=== PATIENT | male | born 1955 | race Caucasian/White ===

== ENCOUNTER 2016-05-13 19:17 | Emergency (ER) | payer OTHER, MEDICARE ==
--- NOTE | 2016-05-13 19:34 | ER Document Report ---
ED Medical Screen (RME) - General Stated Complaint: NECK PAIN Time seen by provider: 19:32 Mode of Arrival: Wheelchair Information source: Parent Notes: 61-year-old male presents to ED for neck pain bilaterally across both shoulders and down both arms. States has been there for a couple weeks. He went to see [facility] for surgery and they ordered the MRI which has been done but he has a follow-up visit on May 22 and states he cannot wait that long the pain is too bad. I have greeted and performed a rapid initial assessment of this patient. A comprehensive ED assessment and evaluation of the patient, analysis of test results and completion of medical decision making process will be conducted by an additional ED providers. TRAVEL OUTSIDE OF THE [place] IN LAST 30 DAYS: No - Related Data Allergies/Adverse Reactions: latex [Latex] Allergy (Verified 05/13/16 19:30) adhesive tape [Adhesive Tape] Adverse Reaction (Verified 05/13/16 19:30) Past Medical History - Past Medical History Cardiac Medical History: Reports: Hx Congestive Heart Failure, Hx Coronary Artery Disease, Hx Heart Attack - x14, Hx Hypercholesterolemia, Hx Hypertension Pulmonary Medical History: Reports: Hx Pneumonia Endocrine Medical History: Reports: Hx Diabetes Mellitus Type 2 Past Surgical History: Reports: Hx Cardiac Catheterization, Hx Cardiac Surgery - CABG, Hx Coronary Artery Bypass Graft - 3 vessel CABG, Hx Coronary Stent - 5 angioplasties, last 2 stents placed on Immunizations Hx Diphtheria, Pertussis, Tetanus Vaccination: Yes Physical Exam - Vital signs Vitals: Temp Pulse Resp BP Pulse Ox 97.7 F 75 16 151/81 H 99 05/13/16 19:24 05/13/16 19:24 05/13/16 19:24 05/13/16 19:24 05/13/16 19:24 Course - Vital Signs Vital signs: Temp Pulse Resp BP Pulse Ox 97.7 F 75 16 151/81 H 99 05/13/16 19:24 05/13/16 19:24 05/13/16 19:24 05/13/16 19:24 05/13/16 19:24
[2016-05-13] MEDS ORDERED: HYDROMORPHONE HCL INJ/PF 2 MG/ML AMPULE IM ONE (21:17)
--- NOTE | 2016-05-13 21:46 | ER Document Report ---
ED Neck/Back Problem - General Chief Complaint: Neck Pain >24hrs old Stated Complaint: NECK PAIN Time seen by provider: 21:46 Mode of Arrival: Wheelchair TRAVEL OUTSIDE OF THE [place] IN LAST 30 DAYS: No - HPI Patient complains to provider of: Pain, Neck Onset: Other - Several months Onset: Gradual Timing: Still present Quality of pain: Achy Severity: Moderate Pain Level: 4 Recent injury: No Exacerbated by: Movement of neck Relieved by: Nothing Similar symptoms previously: Yes Recently seen / treated by doctor: Yes Notes: Patient is a 61-year-old male presenting to the emergency room complaining of neck pain that's been going on for the past few months, he has been seen by his primary care provider had an MRI performed which she has a follow up later this week to find out the results of, reports a slight tingling sensation in his left hand with painful range of motion of the neck and left shoulder, he denies any headache, no nausea, vomiting diarrhea, no injury or trauma, symptoms have been getting persistently worse - Related Data Allergies/Adverse Reactions: latex [Latex] Allergy (Verified 05/13/16 19:30) adhesive tape [Adhesive Tape] Adverse Reaction (Verified 05/13/16 19:30) Home Medications: Current Home Medications Alpha Lipoic Acid [Alpha Lipoic Acid 300 mg Capsule] 600 mg PO DAILY 05/13/16 [ History] Aspirin [Aspirin EC] 81 mg PO DAILY 05/13/16 [History] Cyanocobalamin (Vitamin B-12) [Vitamin B-12 1000 Mcg Tablet] 1,000 mcg PO DAILY 05/13/16 [History] Diclofenac Sodium [Voltaren] 1 applic TOP Q6HP PRN 05/13/16 [History] Gabapentin [Gabapentin] 1,200 mg PO QHS 05/13/16 [History] Gabapentin [Gabapentin] 800 mg PO BID 05/13/16 [History] Insulin Glulisine [Apidra Solostar] 8 unit SUBCUT AC 05/13/16 [History] Lidocaine [Lidocaine] 1 applic TOP Q6HP PRN 05/13/16 [History] Pregabalin [Lyrica] 150 mg PO BID 05/13/16 [History] Tadalafil [Cialis] 10 mg PO PRN PRN 05/13/16 [History] Past Medical History - General Information source: Parent - Social History Smoking Status: Never Smoker Chew tobacco use (# tins/day): Yes Frequency of alcohol use: None Drug Abuse: None Family History: Reviewed & Not Pertinent Patient has suicidal ideation: No Patient has homicidal ideation: No - Past Medical History Cardiac Medical History: Reports: Hx Congestive Heart Failure, Hx Coronary Artery Disease, Hx Heart Attack - x14, Hx Hypercholesterolemia, Hx Hypertension Pulmonary Medical History: Reports: Hx Pneumonia Endocrine Medical History: Reports: Hx Diabetes Mellitus Type 2 Renal/ Medical History: Denies: Hx Peritoneal Dialysis Past Surgical History: Reports: Hx Cardiac Catheterization, Hx Cardiac Surgery - CABG, Hx Coronary Artery Bypass Graft - 3 vessel CABG, Hx Coronary Stent - 5 angioplasties, last 2 stents placed on Immunizations Hx Diphtheria, Pertussis, Tetanus Vaccination: Yes Review of Systems - Review of Systems Constitutional: No symptoms reported EENT: No symptoms reported Cardiovascular: No symptoms reported Respiratory: No symptoms reported Gastrointestinal: No symptoms reported Genitourinary: No symptoms reported Male Genitourinary: No symptoms reported Musculoskeletal: See HPI Skin: No symptoms reported Hematologic/Lymphatic: No symptoms reported Neurological/Psychological: Tingling -: Yes All other systems reviewed and negative Physical Exam - Vital signs Vitals: Temp Pulse Resp BP Pulse Ox 97.7 F 75 16 151/81 H 99 05/13/16 19:24 05/13/16 19:24 05/13/16 19:24 05/13/16 19:24 05/13/16 19:24 Interpretation: Normal - General General appearance: Appears well, Alert - HEENT Head: Normocephalic, Atraumatic Eyes: Normal Extraocular movements intact: Yes Eyelashes: Normal Pupils: PERRL Neck: Other - Tenderness to palpate in paraspinal musculature, left greater than right, tenderness to palpate bilateral trapezius muscles as well - Respiratory Respiratory status: No respiratory distress Chest status: Nontender Breath sounds: Normal Chest palpation: Normal - Cardiovascular Rhythm: Regular Heart sounds: Normal auscultation Murmur: No - Abdominal Inspection: Normal Distension: No distension Bowel sounds: Normal Tenderness: Nontender Organomegaly: No organomegaly - Back Back: Normal, Nontender - Extremities General upper extremity: Normal inspection, Nontender, Normal color, Normal ROM , Normal temperature General lower extremity: Normal inspection, Nontender, Normal color, Normal ROM , Normal temperature, Normal weight bearing. No: James's sign - Neurological Neuro grossly intact: Yes Cognition: Normal Orientation: AAOx4 [place] Coma Scale Eye Opening: Spontaneous Los Coma Scale Verbal: Oriented [place] Coma Scale Motor: Obeys Commands Los Coma Scale Total: 15 Speech: Normal Motor strength normal: LUE, RUE, LLE, RLE Sensory: Normal - Psychological Associated symptoms: Normal affect, Normal mood - Skin Skin Temperature: Warm Skin Moisture: Dry Skin Color: Normal Course - Re-evaluation Re-evalutation: 05/13/16 22:05 Patient reports feeling significant pain relief after receiving IM pain medication injection, he was advised to follow-up with his primary care provider and a neurosurgeon within the next week for further evaluation and treatment, he will be provided with a prescription for a small amount of narcotic pain relievers, he was advised of the addictive nature of these pills and to use them sparingly or only when he is having a significant amount of breakthrough pain, patient and at bedside acknowledge understanding and agreement with this plan - Vital Signs Vital signs: Temp Pulse Resp BP Pulse Ox 97.7 F 68 16 145/77 H 97 05/13/16 19:24 05/13/16 22:14 05/13/16 22:14 05/13/16 22:14 05/13/16 22:14 Discharge - Discharge Clinical Impression: Neck pain Condition: Stable Disposition: HOME, SELF-CARE Instructions: Neck Injury (Cervical Strain) ([facility]), Herniated Disc ([facility]), Oral Narcotic Medication ([facility]) Additional Instructions: Follow up with your primary care provider and a neurosurgeon in one to 2 days. Return to the emergency room immediately if symptoms worsen or any additional concerns. Prescriptions: Hydrocodone/Acetaminophen [Hydrocodon-Acetaminophen 5-325] 1 each PO Q6 #20 tablet
[2016-05-13] MEDS ORDERED: HYDROCODONE/ACETAMINOPHEN 5-325 MG 6 TAB/DSPK PO PRN (22:06)
[2016-05-13 23:25] VITALS: BP 145/77
== END 2016-05-13 22:14 | disposition home or self-care (01) ==
LOC: ER 19:17
DX: M54.2 Cervicalgia (principal); Z79.899 Other long term (current) drug therapy; Z79.4 Long term (current) use of insulin
CPT/HCPCS: 99283; 96372; J1170

== ENCOUNTER 2016-06-07 14:16 | Emergency (ER) | payer OTHER, MEDICARE ==
--- NOTE | 2016-06-07 14:24 | ER Document Report ---
ED Medical Screen (RME) - General Stated Complaint: NECK PAIN,BLOODY STOOL Mode of Arrival: Ambulatory Information source: Patient Notes: Patient complains of chronic pain due to his condition and states that he is supposed to have shots to help with pain management. Patient has been taking Percocet for his neck pain and reports that it is causing him to itch. Patient reports having blood with bowel movement last night. Patient reports having 3 similar bowel movements today. Patient takes Plavix, but has not taken any for 3 weeks. hx: [place], angioplasty with stents. Hypertension, diabetes I have greeted and performed a rapid initial assessment of this patient. A comprehensive ED assessment and evaluation of the patient, analysis of test results and completion of the medical decision making process will be conducted by additional ED providers. TRAVEL OUTSIDE OF THE [place] IN LAST 30 DAYS: No - Related Data Allergies/Adverse Reactions: acetaminophen [From Percocet] Allergy (Verified 06/07/16 14:21) latex [Latex] Allergy (Verified 06/07/16 14:21) oxycodone [From Percocet] Allergy (Verified 06/07/16 14:21) adhesive tape [Adhesive Tape] Adverse Reaction (Verified 06/07/16 14:21) Past Medical History - Past Medical History Cardiac Medical History: Reports: Hx Congestive Heart Failure, Hx Coronary Artery Disease, Hx Heart Attack - x14, Hx Hypercholesterolemia, Hx Hypertension Pulmonary Medical History: Reports: Hx Pneumonia Endocrine Medical History: Reports: Hx Diabetes Mellitus Type 2 Renal/ Medical History: Denies: Hx Peritoneal Dialysis Past Surgical History: Reports: Hx Cardiac Catheterization, Hx Cardiac Surgery - CABG, Hx Coronary Artery Bypass Graft - 3 vessel CABG, Hx Coronary Stent - 5 angioplasties, last 2 stents placed on Immunizations Hx Diphtheria, Pertussis, Tetanus Vaccination: Yes Physical Exam - General General appearance: Appears well, Alert In distress: None Notes: Tenderness to posterior neck
[2016-06-07 15:05] LABS: ABSOLUTE EOSINOPHILS # (AUTO) 0.1 10^3/uL (0.0-0.6); ABSOLUTE LYMPHOCYTES (AUTO) 1.4 10^3/uL (0.5-4.7); ABSOLUTE MONOCYTES (AUTO) 0.5 10^3/uL (0.1-1.4); ABSOLUTE NEUT (AUTO) 5.1 10^3/uL (1.7-8.2); BASOPHILS % (AUTO) 0.4 % (0-2); EOSINOPHILS % (AUTO) 1.8 % (0-6); HEMATOCRIT 46.6 % (37.9-51.0); HEMOGLOBIN 16.1 g/dL (13.5-17.0); HGB HCT DIFFERENCE 1.7; LYMPHOCYTES % (AUTO) 19.5 % (13-45); MEAN CORPUSCULAR HEMOGLOBIN 29.6 pg (27.0-33.4); MEAN CORPUSCULAR HGB CONC 34.5 g/dL (32.0-36.0); MEAN CORPUSCULAR VOLUME 86 fl (80-97); MONOCYTES % (AUTO) 7.1 % (3-13); RED BLOOD COUNT 5.43 10^6/uL (4.35-5.55); RED CELL DISTRIBUTION WIDTH 13.7 % (11.5-14.0); SEGMENTED NEUTROPHILS % (AUTO) 71.2 % (42-78); WHITE BLOOD COUNT 7.1 10^3/uL (4.0-10.5)
[2016-06-07 15:09] LABS: PROTHROMBIN TIME 12.8 SEC (11.4-15.4)
[2016-06-07 15:10] LABS: APPEARANCE,URINE CLEAR; BILIRUBIN,URINE NEGATIVE (NEGATIVE); GLUCOSE, URINE NEGATIVE (NEGATIVE); KETONES,URINE NEGATIVE (NEGATIVE); LEUKOCYTE ESTERASE,URINE NEGATIVE (NEGATIVE); NITRITE,URINE NEGATIVE (NEGATIVE); PROTEIN,URINE NEGATIVE (NEGATIVE); UROBILINOGEN,URINE NEGATIVE mg/dL (<2.0)
[2016-06-07 15:38] LABS: ALANINE AMINOTRANSFERASE 47 U/L (21-72); ALKALINE PHOSPHATASE 109 U/L (38-126); ANION GAP 12 (5-19); ASPARTATE AMINO TRANSFERASE 29 U/L (17-59); BILIRUBIN,DIRECT 0.3 mg/dL (0.0-0.4); BILIRUBIN,TOTAL 0.9 mg/dL (0.2-1.3); BLOOD UREA NITROGEN 10 mg/dL (7-20); CALCIUM 9.5 mg/dL (8.4-10.2); CARBON DIOXIDE 28 mmol/L (22-30); CHLORIDE 98 mmol/L (98-107); CREATININE RESULT 0.96 mg/dL (0.52-1.25); GLUCOSE 155 mg/dL (75-110); POTASSIUM 4.4 mmol/L (3.6-5.0); SODIUM 138.4 mmol/L (137-145); TOTAL PROTEIN 6.7 g/dL (6.3-8.2)
[2016-06-07 16:17] LABS: PARTIAL THROMBOPLASTIN TIME 29.8 SEC (23.5-35.8)
[2016-06-07] MEDS ORDERED: PREDNISONE 20 MG TABLET PO ONE (18:50)
[2016-06-07] MEDS ORDERED: HYDROMORPHONE HCL INJ/PF 2 MG/ML AMPULE IM ONE (18:50)
--- NOTE | 2016-06-07 18:51 | ER Document Report ---
ED Neck/Back Problem - General Time seen by provider: 18:45 Mode of Arrival: Ambulatory Information source: Patient TRAVEL OUTSIDE OF THE [place] IN LAST 30 DAYS: No - HPI Patient complains to provider of: Pain, Neck Associated symptoms: Other - See above <ANDRÉS DAWN - Last Filed: 06/08/16 00:41> <ALVARO ZURITA - Last Filed: 06/08/16 00:53> - General Chief Complaint: Neck and Upper Back Pain Stated Complaint: NECK PAIN Notes: Patient is a 61 year old male who presents to the emergency department complaining of neck pain. Patient states the pain has been chronic off and on and came back on about a month ago and won't go away. Patient was seen at this facility last week for the same symptoms and reports that his pain medication, Percocet, is not working and only makes him itch. Patient also complains of shoulder, back, and arm pain. Patients reports that treatment with steroids and shots to his back seem to help with the pain. Patient also complains that he has not been sleeping well and is starting to feel anxious. Patient states that he has had blood streaked bowels and believes it is secondary to his narcotics causing him to become constipated and bursting a hemorrhoid. (ANDRÉS DAWN) - Related Data Allergies/Adverse Reactions: acetaminophen [From Percocet] Allergy (Verified 06/07/16 14:21) latex [Latex] Allergy (Verified 06/07/16 14:21) oxycodone [From Percocet] Allergy (Verified 06/07/16 14:21) adhesive tape [Adhesive Tape] Adverse Reaction (Verified 06/07/16 14:21) Past Medical History - General Information source: Patient - Social History Smoking Status: Never Smoker Chew tobacco use (# tins/day): Yes Frequency of alcohol use: None Drug Abuse: None Family History: Reviewed & Not Pertinent Patient has suicidal ideation: No Patient has homicidal ideation: No - Past Medical History Cardiac Medical History: Reports: Hx Congestive Heart Failure, Hx Coronary Artery Disease, Hx Heart Attack - x14, Hx Hypercholesterolemia, Hx Hypertension Pulmonary Medical History: Reports: Hx Pneumonia Endocrine Medical History: Reports: Hx Diabetes Mellitus Type 2 Past Surgical History: Reports: Hx Cardiac Catheterization, Hx Cardiac Surgery - CABG, Hx Coronary Artery Bypass Graft - 3 vessel CABG, Hx Coronary Stent - 5 angioplasties, last 2 stents placed on05/25/ Immunizations Hx Diphtheria, Pertussis, Tetanus Vaccination: Yes <ANDRÉS DAWN - Last Filed: 06/08/16 00:41> Review of Systems - Review of Systems Constitutional: No symptoms reported EENT: No symptoms reported Cardiovascular: No symptoms reported Respiratory: No symptoms reported Gastrointestinal: See HPI, Constipation, Blood streaked bowels Genitourinary: No symptoms reported Male Genitourinary: No symptoms reported Musculoskeletal: See HPI, Back pain, Neck pain, Other - shoulder and arm pain Skin: No symptoms reported Hematologic/Lymphatic: No symptoms reported Neurological/Psychological: No symptoms reported -: Yes All other systems reviewed and negative <ANDRÉS DAWN - Last Filed: 06/08/16 00:41> Physical Exam - Vital signs Interpretation: Normal - General General appearance: Alert - HEENT Head: Normocephalic, Atraumatic Neck: Posterior cervical chain - Paraspinal tenderness to palpation of entire cervical area, Other - Holds neck in flexed posision for comfort - Respiratory Respiratory status: No respiratory distress Chest status: Nontender Breath sounds: Normal Chest palpation: Normal - Cardiovascular Rhythm: Regular Heart sounds: Normal auscultation Murmur: No - Back Back: Tender - bilateral trapezius tenderness to palpation - Extremities General upper extremity: Normal inspection, Normal ROM, Normal strength General lower extremity: Normal inspection, Normal ROM, Normal strength, Normal weight bearing - Neurological Neuro grossly intact: Yes Cognition: Normal Orientation: AAOx4 [place] Coma Scale Eye Opening: Spontaneous Los Coma Scale Verbal: Oriented [place] Coma Scale Motor: Obeys Commands Counselor Coma Scale Total: 15 Speech: Normal Motor strength normal: LUE, RUE, LLE, RLE - Psychological Associated symptoms: Normal affect, Normal mood - Skin Skin Temperature: Warm Skin Moisture: Dry Skin Color: Normal <ANDRÉS DAWN - Last Filed: 06/08/16 00:41> Course - Laboratory Result Diagrams: 06/07/16 14:25 06/07/16 14:25 <ANDRÉS DAWN - Last Filed: 06/08/16 00:41> - Laboratory Result Diagrams: 06/07/16 14:25 06/07/16 14:25 <ALVARO ZURITA - Last Filed: 06/08/16 00:53> - Re-evaluation Re-evalutation: 06/07 Patient feels better after pain medication here in the emergency department. Patient has a follow-up with his pain management doctor on Saturday. Patient has been itching with oxycodone and will be switched to hydrocodone. He also has stated that in the past a steroid Dosepak has worked well for him. Patient would like to try that again today. He will be discharged home with a Medrol Dosepak. No new symptoms. This is the same back pain that he has been having for quite some time, he just has had an acute flare today. (ALVARO ZURITA) - Vital Signs Vital signs: Temp Pulse Resp BP Pulse Ox 98.5 F 67 18 134/78 H 96 06/07/16 20:37 06/07/16 20:37 06/07/16 20:37 06/07/16 20:37 06/07/16 20:37 - Laboratory Laboratory results interpreted by me: 06/07/16 06/07/16 14:25 17:22 Glucose 155 H POC Glucose 147 H Discharge <ANDRÉS DAWN - Last Filed: 06/08/16 00:41> <ALVARO ZURITA - Last Filed: 06/08/16 00:53> - Discharge Clinical Impression: Neck pain Condition: Stable Disposition: HOME, SELF-CARE Instructions: Neck Injury (Cervical Strain) ([facility]) Additional Instructions: Please see your pain doctor on as scheduled. Prescriptions: Diazepam [Valium 2 mg Tablet] 2 mg PO BIDP PRN #15 tablet PRN Reason: Hydrocodone/Acetaminophen [[place] 5-325 mg Tablet] 1 tab PO TID #20 tablet Methylprednisolone [Medrol Dosepack (4 mg/Tab) 21 Tab/Dosepak] 4 mg PO ASDIR PRN #21 tab.[id number] PRN Reason: Referrals: ELPIDIO VEGA PA-C [Primary Care Provider] - Follow up as needed Scribe Attestation: 06/08/16 00:53 I personally performed the services described in the documentation, reviewed and edited the documentation which was dictated to the scribe in my presence, and it accurately records my words and actions. (ALVARO ZURITA) Scribe Documentation - Scribe Written by Scribe:: wilson Woods, 06/07/16, [id number] acting as scribe for :: Juan Jose <ANDRÉS DAWN - Last Filed: 06/08/16 00:41>
[2016-06-07 20:47] VITALS: BP 134/78
== END 2016-06-07 20:37 | disposition home or self-care (01) ==
LOC: ER 14:16
DX: G89.29 Other chronic pain (principal); M54.2 Cervicalgia; Z79.891 Long term (current) use of opiate analgesic; M25.519 Pain in unspecified shoulder; M54.89 Other dorsalgia; M79.603 Pain in arm, unspecified; K59.00 Constipation, unspecified; K92.1 Melena; F41.9 Anxiety disorder, unspecified; I25.10 Atherosclerotic heart disease of native coronary artery without angina pectoris; I25.2 Old myocardial infarction; I10 Essential (primary) hypertension; E11.9 Type 2 diabetes mellitus without complications; Z95.1 Presence of aortocoronary bypass graft; Z98.61 Coronary angioplasty status; Z88.5 Allergy status to narcotic agent; Z88.6 Allergy status to analgesic agent; Z91.040 Latex allergy status
CPT/HCPCS: 99283; 96372; 36415; 82962; 85025; 85610; 85730; 80053; 81001; J1170; J7512

== ENCOUNTER 2016-07-01 00:27 | Emergency (ER) | payer OTHER, MEDICARE ==
[2016-07-01 00:36] VITALS: BP 168/91
--- NOTE | 2016-07-01 02:04 | ER Document Report ---
ED Allergic Reaction - General Chief Complaint: Allergic Reaction Stated Complaint: POSSIBLE REACTION TO MEDICATION Notes: The patient is a 61-year-old male, past medical history chronic neck pain, hypertension, anxiety, presents with a itchy nose after he took Claritin earlier today. He was having rhinorrhea prior to taking the medication. He is worried that he is having an allergic reaction. In addition, he is having his usual neck pain and he follows with his primary care physician and pain management for this. Seen several times in the emergency room for this neck pain. Denies trouble breathing, throat swelling, rash, tongue swelling, nausea , vomiting or fevers. TRAVEL OUTSIDE OF THE [place] IN LAST 30 DAYS: No - Related Data Allergies/Adverse Reactions: acetaminophen [From Percocet] Allergy (Verified 06/07/16 14:21) latex [Latex] Allergy (Verified 06/07/16 14:21) oxycodone [From Percocet] Allergy (Verified 06/07/16 14:21) adhesive tape [Adhesive Tape] Adverse Reaction (Verified 06/07/16 14:21) Past Medical History - General Information source: Patient - Social History Smoking Status: Unknown if Ever Smoked Family History: Reviewed & Not Pertinent Patient has suicidal ideation: No Patient has homicidal ideation: No - Past Medical History Cardiac Medical History: Reports: Hx Congestive Heart Failure, Hx Coronary Artery Disease, Hx Heart Attack - x14, Hx Hypercholesterolemia, Hx Hypertension Pulmonary Medical History: Reports: Hx Pneumonia Endocrine Medical History: Reports: Hx Diabetes Mellitus Type 2 Renal/ Medical History: Denies: Hx Peritoneal Dialysis Past Surgical History: Reports: Hx Cardiac Catheterization, Hx Cardiac Surgery - CABG, Hx Coronary Artery Bypass Graft - 3 vessel CABG, Hx Coronary Stent - 5 angioplasties, last 2 stents placed on05/25/ Immunizations Hx Diphtheria, Pertussis, Tetanus Vaccination: Yes Review of Systems - Review of Systems Notes: REVIEW OF SYSTEMS: CONSTITUTIONAL: -fevers, -chills EENT: +itchy nose, -eye pain, -difficulty swallowing, -nasal congestion CARDIOVASCULAR:-chest pain, -syncope. RESPIRATORY: -cough, -SOB GASTROINTESTINAL: -abdominal pain, -nausea, -vomiting, -diarrhea GENITOURINARY: -dysuria, -hematuria MUSCULOSKELETAL: -back pain, -neck pain SKIN: -rash or skin lesions. HEMATOLOGIC: -easy bruising or bleeding. LYMPHATIC: -swollen, enlarged glands. NEUROLOGICAL: -altered mental status or loss of consciousness, -headache, - neurologic symptoms PSYCHIATRIC: -anxiety, -depression. ALL OTHER SYSTEMS REVIEWED AND NEGATIVE. Physical Exam - Vital signs Vitals: Temp Pulse Resp BP Pulse Ox 98 F 80 18 168/91 H 97 07/01/16 00:32 07/01/16 00:32 07/01/16 00:32 07/01/16 00:32 07/01/16 00:32 - Notes Notes: PHYSICAL EXAMINATION: GENERAL: Well-appearing, well-nourished and in no acute distress. HEAD: Atraumatic, normocephalic. EYES: Pupils equal round and reactive to light, extraocular movements intact, sclera anicteric, conjunctiva are normal. ENT: nares patent, oropharynx clear without exudates. Moist mucous membranes. NECK: Normal range of motion, supple without lymphadenopathy LUNGS: Breath sounds clear to auscultation bilaterally and equal. No wheezes rales or rhonchi. HEART: Regular rate and rhythm without murmurs ABDOMEN: Soft, nontender, normoactive bowel sounds. No guarding, no rebound. No masses appreciated. EXTREMITIES: Normal range of motion, no pitting or edema. No cyanosis. NEUROLOGICAL: Cranial nerves grossly intact. Normal speech, normal gait. Normal sensory, motor, and reflex exams. PSYCH: Normal mood, normal affect. SKIN: Warm, Dry, normal turgor, no rashes or lesions noted. Course - Re-evaluation Re-evalutation: No signs of anaphylaxis and no swelling or redness of the nose. Patient said that the last time he was here, he received steroids which helped his neck pain and he is requesting another course. Instructed patient to follow-up with his primary care physician for further evaluation and treatment. - Vital Signs Vital signs: Temp Pulse Resp BP Pulse Ox 98 F 80 18 168/91 H 97 07/01/16 00:32 07/01/16 00:32 07/01/16 00:32 07/01/16 00:32 07/01/16 00:32 Discharge - Discharge Clinical Impression: Chronic neck pain Allergic reaction Qualifiers: Encounter type: initial encounter Qualified Code(s): T78.40XA - Allergy, unspecified, initial encounter Condition: Good Disposition: HOME, SELF-CARE Additional Instructions: ACUTE ALLERGIC REACTION: Your symptoms are due to an allergic reaction. Allergy can cause hives, swelling of the hands, feet, and face, hoarseness, and difficulty swallowing or breathing. It may be due to exposure to medication, animal dander, foods, infection, or insect bites. Medication is a common cause, even when prior use of this same medication caused no problems. Acute treatment may include adrenalin and antihistamines. Usually, the specific allergic agent can't be identified unless repeated episodes occur. Home treatment includes the following: (1) Stop any suspicious medications. This will be discussed with you. (2) Oral antihistamines for the next four to five days. Example, diphenhydramine (Benadryl) every four hours. (3) You may also use cimetidine (Tagamet), ranitidine (Zantac), or famotidine ( Pepcid) every four hours if diphenhydramine is not controlling itching and hives. (4) Avoid aspirin until the hives completely disappear. (5) Avoid hot baths or showers until the hives are completely gone. Call the doctor if faintness, difficulty swallowing, tightness in the chest , or wheezing occurs. STEROID MEDICATION: You have been given a medicine of the cortisone/steroid class. This medication is used to control inflammation or allergy. It is usually only given for a short period of time, until the acute process subsides. There are usually no side effects from short-term use of cortisone-like medications. Some persons feel an increased sense of well-being and are not sleepy at bedtime. Long-term use of cortisone medications is best avoided, unless required for a severe condition. If your condition does not remit, or relapses after the course of corticosteroid medication, you should consult your physician. ANTIHISTAMINES: An antihistamine has been given and/or prescribed to control your symptoms. Antihistamines are used for many reasons, including itching, watering eyes, runny nose, allergic swelling, hives, and insect stings. Antihistamines may cause drowsiness, especially with the first dose. Do not operate machinery or drive while under the effects of the medication. Other common side effects include dry mouth and eyes. In older persons, antihistamines can occasionally cause urinary retention, constipation, and trouble focusing the eyes. Do not combine the medication with alcohol, or with any other medication without talking to your doctor. USE OF DIPHENHYDRAMINE: The use of diphenhydramine (Benadryl) has been recommended to control allergic symptoms. The 25 mg strength is available over- the-counter, as well as the elixir. This antihistamine is used for many symptoms. It's useful for itching, watering eyes and nose, allergic swelling, hives, and insect stings. The medication can be repeated four times daily. Age Elixir (12.5 mg/tsp) 25 mg pill 2-3 yr 1/2 tsp 4-8 yr 1 tsp 9-14 yr 2 tsp one tab adult 1-2 tabs Antihistamines may cause drowsiness, especially with the first dose. Do not operate machinery or drive while under the effects of the medication. Do not combine the medication with alcohol, or with any other medication without talking to your doctor. FOLLOW-UP CARE: If you have been referred to a physician for follow-up care, call the physician s office for an appointment as you were instructed or within the next two days. If you experience worsening or a significant change in your symptoms, notify the physician immediately or return to the Emergency Department at any time for re-evaluation. Prescriptions: Prednisone [Deltasone 20 mg Tablet] 3 tab PO DAILY 5 Days
[2016-07-01] MEDS ORDERED: PREDNISONE 20 MG TABLET PO ONE (02:08)
[2016-07-01] MEDS ORDERED: DIPHENHYDRAMINE HCL 25 MG CAPSULE PO ONE (02:08)
== END 2016-07-01 02:53 | disposition home or self-care (01) ==
LOC: ER 00:27
DX: T78.40XA Allergy, unspecified, initial encounter (principal); L29.8 Other pruritus; X58.XXXA Exposure to other specified factors, initial encounter; G89.29 Other chronic pain; M54.2 Cervicalgia; J34.89 Other specified disorders of nose and nasal sinuses; E11.9 Type 2 diabetes mellitus without complications; I25.10 Atherosclerotic heart disease of native coronary artery without angina pectoris; I25.2 Old myocardial infarction; I10 Essential (primary) hypertension; Z88.6 Allergy status to analgesic agent; Z88.5 Allergy status to narcotic agent; Z91.040 Latex allergy status; Z95.1 Presence of aortocoronary bypass graft; Z98.61 Coronary angioplasty status
CPT/HCPCS: 99283; J7512

== ENCOUNTER 2016-11-10 14:47 | Observation (INO) | payer MEDICARE, OTHER ==
--- NOTE | 2016-11-10 15:26 | ER Document Report ---
ED Medical Screen (RME) - General Chief Complaint: Chest Pain Stated Complaint: WEAKNESS Time Seen by Provider: 11/10/16 15:06 Mode of Arrival: Ambulatory Information source: Patient TRAVEL OUTSIDE OF THE [place] IN LAST 30 DAYS: No - HPI Patient complains to provider of: Chest pain, night sweats, jittery feeling, nausea Notes: 11/10/16 15:26 Patient is a 61-year-old male presenting to the emergency room complaining of chest pain is been going on for several years but is slightly deeper today than usual, with nausea, feeling jittery and sweaty - Related Data Allergies/Adverse Reactions: acetaminophen [From Percocet] Allergy (Verified 11/10/16 15:05) latex [Latex] Allergy (Verified 11/10/16 15:05) oxycodone [From Percocet] Allergy (Verified 11/10/16 15:05) adhesive tape [Adhesive Tape] Adverse Reaction (Verified 11/10/16 15:05) Past Medical History - Past Medical History Cardiac Medical History: Reports: Hx Congestive Heart Failure, Hx Coronary Artery Disease, Hx Heart Attack - x14, Hx Hypercholesterolemia, Hx Hypertension Pulmonary Medical History: Reports: Hx Pneumonia Endocrine Medical History: Reports: Hx Diabetes Mellitus Type 2 Renal/ Medical History: Denies: Hx Peritoneal Dialysis Past Surgical History: Reports: Hx Cardiac Catheterization, Hx Cardiac Surgery - CABG, Hx Coronary Artery Bypass Graft - 3 vessel CABG, Hx Coronary Stent - 5 angioplasties, last 2 stents placed on Immunizations Hx Diphtheria, Pertussis, Tetanus Vaccination: Yes Physical Exam - Vital signs Vitals: Temp Pulse Resp BP Pulse Ox 98.2 F 93 16 175/95 H 98 11/10/16 15:05 11/10/16 15:05 11/10/16 15:05 11/10/16 15:05 11/10/16 15:05 Course - Vital Signs Vital signs: Temp Pulse Resp BP Pulse Ox 98.2 F 93 16 175/95 H 98 11/10/16 15:05 11/10/16 15:05 11/10/16 15:05 11/10/16 15:05 11/10/16 15:05
[2016-11-10 15:45] LABS: ABSOLUTE EOSINOPHILS # (AUTO) 0.1 10^3/uL (0.0-0.6); ABSOLUTE LYMPHOCYTES (AUTO) 1.5 10^3/uL (0.5-4.7); ABSOLUTE MONOCYTES (AUTO) 0.6 10^3/uL (0.1-1.4); ABSOLUTE NEUT (AUTO) 5.5 10^3/uL (1.7-8.2); BASOPHILS % (AUTO) 0.3 % (0-2); EOSINOPHILS % (AUTO) 1.4 % (0-6); HEMATOCRIT 45.6 % (37.9-51.0); HEMOGLOBIN 15.7 g/dL (13.5-17.0); HGB HCT DIFFERENCE 1.5; LYMPHOCYTES % (AUTO) 19.3 % (13-45); MEAN CORPUSCULAR HEMOGLOBIN 29.9 pg (27.0-33.4); MEAN CORPUSCULAR HGB CONC 34.4 g/dL (32.0-36.0); MEAN CORPUSCULAR VOLUME 87 fl (80-97); MONOCYTES % (AUTO) 7.5 % (3-13); RED BLOOD COUNT 5.23 10^6/uL (4.35-5.55); SEGMENTED NEUTROPHILS % (AUTO) 71.5 % (42-78); WHITE BLOOD COUNT 7.7 10^3/uL (4.0-10.5)
--- NOTE | 2016-11-10 15:50 | ER Document Report ---
ED General - General Chief Complaint: Chest Pain Stated Complaint: WEAKNESS Time Seen by Provider: 11/10/16 15:06 Mode of Arrival: Ambulatory Information source: Patient Notes: 61-year-old male extensive cardiac history including triple bypass 2-4 stents unsure of last intervention by [facility] presents with complaints of chest pain over the past few days. Patient notes that he has been dizzy when standing , he notes that he has been sweating as well with chest pain. He has been taking nitroglycerin with improvement of his chest pain but notes it has has worsened today TRAVEL OUTSIDE OF THE [place] IN LAST 30 DAYS: No - HPI Onset: Yesterday Onset/Duration: Persistent Quality of pain: Achy Severity: Mild Pain Level: 1 Associated symptoms: Chest pain, Sweating Exacerbated by: Denies Relieved by: Denies Similar symptoms previously: Yes Recently seen / treated by doctor: Yes - Related Data Allergies/Adverse Reactions: acetaminophen [From Percocet] Allergy (Verified 11/10/16 15:05) latex [Latex] Allergy (Verified 11/10/16 15:05) oxycodone [From Percocet] Allergy (Verified 11/10/16 15:05) adhesive tape [Adhesive Tape] Adverse Reaction (Verified 11/10/16 15:05) Past Medical History - General Information source: Patient - Social History Smoking Status: Current Every Day Smoker Cigarette use (# per day): Yes Chew tobacco use (# tins/day): No Smoking Education Provided: No Family History: Reviewed & Not Pertinent - Past Medical History Cardiac Medical History: Reports: Hx Congestive Heart Failure, Hx Coronary Artery Disease, Hx Heart Attack - x14, Hx Hypercholesterolemia, Hx Hypertension Pulmonary Medical History: Reports: Hx Pneumonia Endocrine Medical History: Reports: Hx Diabetes Mellitus Type 2 Renal/ Medical History: Denies: Hx Peritoneal Dialysis Past Surgical History: Reports: Hx Cardiac Catheterization, Hx Cardiac Surgery - CABG, Hx Coronary Artery Bypass Graft - 3 vessel CABG, Hx Coronary Stent - 5 angioplasties, last 2 stents placed on Immunizations Hx Diphtheria, Pertussis, Tetanus Vaccination: Yes Review of Systems - Review of Systems Notes: REVIEW OF SYSTEMS: CONSTITUTIONAL : Admits to sweating EENT: Denies eye, ear, throat, or mouth pain or symptoms. Denies nasal or sinus congestion or discharge. Denies throat, tongue, or mouth swelling or difficulty swallowing. CARDIOVASCULAR: Admits to chest pain RESPIRATORY: Denies cough, cold, or chest congestion. Denies shortness of breath, difficulty breathing, or wheezing. GASTROINTESTINAL: Denies abdominal pain or distention. Denies nausea, vomiting , or diarrhea. Denies blood in vomitus, stools, or per rectum. Denies black, tarry stools. Denies constipation. GENITOURINARY: Denies difficulty urinating, painful urination, burning, frequency, blood in urine, or discharge. FEMALE GENITOURINARY: Denies vaginal bleeding, heavy or abnormal periods, irregular periods. Denies vaginal discharge or odor. MUSCULOSKELETAL: Denies back or neck pain or stiffness. Denies joint pain or swelling. SKIN: Denies rash, lesions or sores. HEMATOLOGIC : Denies easy bruising or bleeding. LYMPHATIC: Denies swollen, enlarged glands. NEUROLOGICAL: Denies confusion or altered mental status. Denies passing out or loss of consciousness. Denies dizziness or lightheadedness. Denies headache. Denies weakness or paralysis or loss of use of either side. Denies problems with gait or speech. Denies sensory loss, numbness, or tingling. Denies seizures. PSYCHIATRIC: Denies anxiety or stress. Denies depression, suicidal ideation, or homicidal ideation. ALL OTHER SYSTEMS REVIEWED AND NEGATIVE. PHYSICAL EXAMINATION: GENERAL: Well-appearing, well-nourished and in no acute distress. HEAD: Atraumatic, normocephalic. EYES: Pupils equal round and reactive to light, extraocular movements intact, conjunctiva are normal. ENT: Nares patent, oropharynx clear without exudates. Moist mucous membranes. NECK: Normal range of motion, supple without lymphadenopathy LUNGS: Breath sounds clear to auscultation bilaterally and equal. No wheezes rales or rhonchi. HEART: Regular rate and rhythm without murmurs midsternal healed scar ABDOMEN: Soft, nontender, nondistended abdomen. No guarding, no rebound. No masses appreciated. Female : deferred Musculoskeletal: Normal range of motion, no pitting or edema. No cyanosis. NEUROLOGICAL: Cranial nerves grossly intact. Normal speech, normal gait. Normal sensory, motor exams PSYCH: Normal mood, normal affect. SKIN: Warm, Dry, normal turgor, no rashes or lesions noted. Dictation was performed using [employer] recognition software Physical Exam - Vital signs Vitals: Temp Pulse Resp BP Pulse Ox 98.2 F 93 16 175/95 H 98 11/10/16 15:05 11/10/16 15:05 11/10/16 15:05 11/10/16 15:05 11/10/16 15:05 Course - Re-evaluation Re-evalutation: 11/10/16 15:50 Cardiac enzymes pending I expect transfer to [facility] given his extensive cardiac history or admission here 11/10/16 17:01 first set of enzymes negative - Vital Signs Vital signs: Temp Pulse Resp BP Pulse Ox 98.2 F 93 17 152/78 H 97 11/10/16 15:05 11/10/16 15:05 11/10/16 16:01 11/10/16 16:01 11/10/16 16:01 - Laboratory Result Diagrams: 11/10/16 15:30 11/10/16 15:30 Laboratory results interpreted by me: 11/10/16 15:30 Glucose 208 H - Diagnostic Test Radiology reviewed: Image reviewed, Reports reviewed - EKG Interpretation by Ar EKG shows normal: Sinus rhythm, [place], Intervals, QRS Complexes Discharge - Discharge Clinical Impression: Chest pain Qualifiers: Chest pain type: unspecified Qualified Code(s): R07.9 - Chest pain, unspecified Condition: Stable Disposition: ADMITTED OBSERVATION Admitting Provider: Hospitalist Unit Admitted: Telemetry
[2016-11-10 15:58] LABS: ALANINE AMINOTRANSFERASE 36 U/L (21-72); ALBUMIN 4.1 g/dL (3.5-5.0); ALKALINE PHOSPHATASE 114 U/L (38-126); ANION GAP 13 (5-19); ASPARTATE AMINO TRANSFERASE 28 U/L (17-59); BILIRUBIN,DIRECT 0.4 mg/dL (0.0-0.4); BILIRUBIN,TOTAL 1.2 mg/dL (0.2-1.3); BLOOD UREA NITROGEN 7 mg/dL (7-20); CALCIUM 9.4 mg/dL (8.4-10.2); CARBON DIOXIDE 25 mmol/L (22-30); CHLORIDE 100 mmol/L (98-107); CREATINE KINASE 105 U/L (55-170); CREATININE RESULT 0.92 mg/dL (0.52-1.25); GLUCOSE 208 mg/dL (75-110); LIPASE 106.4 U/L (23-300); POTASSIUM 3.9 mmol/L (3.6-5.0); SODIUM 137.6 mmol/L (137-145); TOTAL PROTEIN 6.5 g/dL (6.3-8.2)
--- NOTE | 2016-11-10 16:06 | RADIOLOGY REPORT (SQ) ---
EXAM DESCRIPTION: CHEST PA/LAT COMPLETED DATE/TIME: 11/10/2016 3:45 pm REASON FOR STUDY: cp COMPARISON: 06/20/2014 NUMBER OF VIEWS: Two view. TECHNIQUE: Frontal and lateral radiographic views of the chest acquired. LIMITATIONS: None. FINDINGS: LUNGS AND PLEURA: Chronic interstitial changes. MEDIASTINUM AND HILAR STRUCTURES: No masses. No contour abnormalities. HEART AND VASCULAR STRUCTURES: Heart enlarged without failure. Aorta normal for age. BONES: No acute findings. HARDWARE: CABG. OTHER: No other significant finding. IMPRESSION: No acute findings in the chest. TECHNICAL DOCUMENTATION: JOB ID: [id number] [employer]- All Rights Reserved
[2016-11-10 16:29] LABS: CREATINE KINASE MB 0.69 ng/mL (<4.55); TROPONIN I < 0.012 ng/mL
[2016-11-10] MEDS ORDERED: ONDANSETRON HCL INJ/PF 4 MG/2 ML SDV IV PRN (18:06)
[2016-11-10] MEDS ORDERED: DIAZEPAM 2 MG TABLET PO PRN (18:08)
[2016-11-10] MEDS ORDERED: GLUCAGON,HUMAN RECOMB 1 MG INJ IM PRN (18:13)
[2016-11-10] MEDS ORDERED: DEXTROSE 50%-WATER 25 GM/50 ML DISP.SYRIN IV PRN ×2 (18:13)
[2016-11-10] MEDS ORDERED: DEXTROSE 40% GEL 15 GM TUBE PO PRN ×2 (18:13)
--- NOTE | 2016-11-10 18:48 | PDOC H&P ---
History of Present Illness Admission Date/PCP: 11/10/16 17:10 ELPIDIO VEGA PA-C Patient complains of: Chest pain History of Present Illness: RUSSELL LEWIS is a 61 year old male with history of coronary artery disease, , diabetes mellitus, hypertension, presents to the hospital because of chest pain of 2 days' duration. Patient reports that the pain is located on the left with associated sweating and nausea but no vomiting. There is minimal shortness of breath. There is also associated discomfort on the left upper extremity. The patient took some nitroglycerin at home initially and it has resolved. The patient went to work earlier today and the symptoms recur. Patient reports he felt bad he drove himself to the emergency room, he took nitroglycerin prior to coming to the emergency room. Symptoms has improved. The patient was then referred for admission. There is no headache, dizziness, pleurisy, nor any sinus congestion or fever. He does have a chronic dry cough. Past Medical History Past Medical History: Medication reconciliation pending verification from the patient's pharmacist. Cardiac Medical History: Reports: Congestive Heart Failure, Coronary Artery Disease, Myocardial Infarction - x14, Hyperlipidema, Hypertension Pulmonary Medical History: Reports: Pneumonia Endocrine Medical History: Reports: Diabetes Mellitus Type 2 Musculoskeltal Medical History: Reports: Other - Chronic pain syndrome with cervical myalgias and arthralgias. Past Surgical History Past Surgical History: Reports: Cardiac Catheterization, Coronary Artery Bypass Graft - 3 vessel CABG, Coronary Stent - 5 angioplasties, last 2 stents placed on05/25/ Social History Information Source: Patient Smoking Status: Former Smoker Frequency of Alcohol Use: None Hx Recreational Drug Use: No Drugs: None Hx Prescription Drug Abuse: No Family History Family History: CAD, DM, Hypertension Parental Family History Reviewed: Yes Children Family History Reviewed: Yes Sibling(s) Family History Reviewed.: Yes Medication/Allergy Home Medications: Clopidogrel Bisulfate [Plavix] 75 mg PO DAILY 06/20/14 Furosemide [Lasix 20 mg Tablet] 20 mg PO QAM 06/20/14 Insulin Glargine,Hum.rec.anlog [Lantus] 25 unit SQ QHS 06/20/14 Isosorbide Mononitrate [Imdur 60 mg Tablet.er] 120 mg PO DAILY 06/20/14 Alpha Lipoic Acid [Alpha Lipoic Acid 300 mg Capsule] 600 mg PO DAILY 05/13/16 Aspirin [Aspirin EC] 81 mg PO DAILY 05/13/16 Cyanocobalamin (Vitamin B-12) [Vitamin B-12 1000 Mcg Tablet] 1,000 mcg PO DAILY 05/13/16 Diclofenac Sodium [Voltaren] 1 applic TOP Q6HP PRN 05/13/16 Gabapentin [Gabapentin] 1,200 mg PO QHS 05/13/16 Gabapentin [Gabapentin] 800 mg PO BID 05/13/16 Hydrocodone/Acetaminophen [Hydrocodon-Acetaminophen 5-325] 1 each PO Q6 #20 tablet 05/13/16 Insulin Glulisine [Apidra Solostar] 8 unit SUBCUT AC 05/13/16 Lidocaine [Lidocaine] 1 applic TOP Q6HP PRN 05/13/16 Pregabalin [Lyrica] 150 mg PO BID 05/13/16 Tadalafil [Cialis] 10 mg PO PRN PRN 05/13/16 Diazepam [Valium 2 mg Tablet] 2 mg PO BIDP PRN #15 tablet 06/07/16 Hydrocodone/Acetaminophen [[place] 5-325 mg Tablet] 1 tab PO TID #20 tablet Methylprednisolone [Medrol Dosepack (4 mg/Tab) 21 Tab/Dosepak] 4 mg PO ASDIR PRN #21 tab.ds.pk 06/07/16 Prednisone [Deltasone 20 mg Tablet] 3 tab PO DAILY 5 Days tablet 07/01/16 Allergies/Adverse Reactions: acetaminophen [From Percocet] Allergy (Verified 11/10/16 15:05) latex [Latex] Allergy (Verified 11/10/16 15:05) oxycodone [From Percocet] Allergy (Verified 11/10/16 15:05) adhesive tape [Adhesive Tape] Adverse Reaction (Verified 11/10/16 15:05) Review of Systems Constitutional: PRESENT: chills, night sweats. ABSENT: fever(s), headache(s), weakness, weight gain, weight loss Eyes: ABSENT: visual disturbances Ears: ABSENT: hearing changes Nose, Mouth, and Throat: ABSENT: mouth pain, sore throat Cardiovascular: PRESENT: chest pain. ABSENT: dyspnea on exertion, edema, orthropnea, palpitations Respiratory: PRESENT: cough. ABSENT: hemoptysis, sputum Gastrointestinal: ABSENT: abdominal pain, constipation, diarrhea, hematemesis, hematochezia, melena, nausea, vomiting Genitourinary: ABSENT: difficulty urinating, dysuria, hematuria Musculoskeletal: ABSENT: joint swelling Integumentary: ABSENT: pruritus, rash, wounds Neurological: ABSENT: abnormal gait, abnormal speech, confusion, dizziness, focal weakness, syncope Psychiatric: ABSENT: anxiety, depression, homidical ideation, suicidal ideation Endocrine: ABSENT: cold intolerance, heat intolerance, polydipsia, polyuria Hematologic/Lymphatic: ABSENT: easy bleeding, easy bruising Physical Exam Vital Signs: Temp Pulse Resp BP Pulse Ox 98.2 F 93 16 139/91 H 95 11/10/16 15:05 11/10/16 15:05 11/10/16 17:01 11/10/16 17:01 11/10/16 17:01 General appearance: PRESENT: no acute distress, morbidly obese Head exam: PRESENT: atraumatic, normocephalic Eye exam: PRESENT: conjunctiva pink, EOMI, PERRLA. ABSENT: scleral icterus Ear exam: PRESENT: normal external ear exam Mouth exam: PRESENT: moist, neck supple, tongue midline Neck exam: ABSENT: carotid bruit, JVD, lymphadenopathy, thyromegaly Respiratory exam: PRESENT: clear to auscultation jose enrique, unlabored. ABSENT: rales , rhonchi, wheezes Cardiovascular exam: PRESENT: RRR, +S1, +S2. ABSENT: diastolic murmur, rubs, systolic murmur Pulses: PRESENT: normal dorsalis pedis pul Vascular exam: PRESENT: normal capillary refill GI/Abdominal exam: PRESENT: normal bowel sounds, soft. ABSENT: distended - Obese, guarding, mass, organolmegaly, rebound, tenderness Rectal exam: PRESENT: deferred Extremities exam: PRESENT: full ROM, other - Trace pretibial edema. ABSENT: calf tenderness, clubbing Neurological exam: PRESENT: alert, awake, oriented to person, oriented to place , oriented to time, oriented to situation Psychiatric exam: PRESENT: appropriate affect, normal mood. ABSENT: homicidal ideation, suicidal ideation Skin exam: PRESENT: dry, intact, warm. ABSENT: cyanosis, rash Results Impressions: Chest X-Ray 11/10/16 15:24 IMPRESSION: No acute findings in the chest. Assessment & Plan - Diagnosis (1) Chest pain Qualifiers: Chest pain type: unspecified Qualified Code(s): R07.9 - Chest pain, unspecified Is this a current diagnosis for this admission?: Yes (2) Diabetes mellitus type 2 in obese Is this a current diagnosis for this admission?: Yes (3) Essential hypertension Is this a current diagnosis for this admission?: Yes (4) Hyperlipidemia Qualifiers: Hyperlipidemia type: unspecified Qualified Code(s): E78.5 - Hyperlipidemia , unspecified Is this a current diagnosis for this admission?: Yes (5) Coronary artery disease Qualifiers: Coronary Disease-Associated Artery/Lesion type: [place] artery [place] vs. transplanted heart: [place] heart Associated angina: angina presence unspecified Qualified Code(s): I25.10 - Atherosclerotic heart disease of [place] coronary artery without angina pectoris Is this a current diagnosis for this admission?: Yes (6) CHF with unknown LVEF Is this a current diagnosis for this admission?: Yes (7) Peripheral vascular disease Is this a current diagnosis for this admission?: Yes (8) Chronic pain syndrome Is this a current diagnosis for this admission?: Yes - Time Time Spent: 50 to 70 Minutes - Plan Summary Plan Summary: Patient will be admitted to observation. Serial cardiac enzymes will be obtained 3 and if negative patient will be scheduled for stress test on an outpatient basis. 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 In the meantime he will be on supplemental oxygen, continue his Imdur as well as aspirin and Plavix. We will give DVT prophylaxis with Lovenox. Sliding scale insulin will be done. A routine urinalysis will be obtained. Further testing depends on the initial evaluations outlined above.
[2016-11-10] MEDS ORDERED: CLOPIDOGREL BISULFATE 75 MG TABLET PO ONE (20:00)
[2016-11-10] MEDS ORDERED: ASPIRIN 81 MG TABLET, ENT COATED PO ONE (20:00)
--- NOTE | 2016-11-10 21:08 | EKG REPORT ---
SEVERITY:- BORDERLINE ECG - SINUS OR ECTOPIC ATRIAL RHYTHM BORDERLINE R WAVE PROGRESSION, ANTERIOR LEADS BORDERLINE T ABNORMALITIES, DIFFUSE LEADS : Confirmed by: Henrique Cedeño 10-Nov-2016 21:07:39
[2016-11-10] MEDS: GABAPENTIN 400 MG CAPSULE PO SCH (21:16)
[2016-11-10 22:19] LABS: CREATINE KINASE MB 0.69 ng/mL (<4.55); TROPONIN I 0.017 ng/mL
[2016-11-10] MEDS: INSULIN REG, HUMAN 100 UNIT/ML 3 ML VIAL (PYX) SUBCUT PRN (22:30)
[2016-11-11 05:36] LABS: CREATINE KINASE MB 0.58 ng/mL (<4.55)
[2016-11-11 05:40] LABS: TROPONIN I < 0.012 ng/mL
[2016-11-11] MEDS: GABAPENTIN 400 MG CAPSULE PO SCH ×3 (06:18→21:49)
[2016-11-11] MEDS: LANSOPRAZOLE 30 MG TAB.RAP.DR PO SCH (06:18)
[2016-11-11 06:57] LABS: APPEARANCE,URINE CLEAR; BILIRUBIN,URINE NEGATIVE (NEGATIVE); GLUCOSE, URINE >=500 mg/dL (NEGATIVE); KETONES,URINE NEGATIVE (NEGATIVE); LEUKOCYTE ESTERASE,URINE NEGATIVE (NEGATIVE); NITRITE,URINE NEGATIVE (NEGATIVE); PROTEIN,URINE NEGATIVE (NEGATIVE); URINE SPECIFIC GRAVITY 1.017
[2016-11-11] MEDS: ENOXAPARIN SODIUM INJ 40 MG/0.4 ML DISP.SYRIN SUBCUT SCH (09:32)
[2016-11-11] MEDS: CLOPIDOGREL BISULFATE 75 MG TABLET PO SCH (09:33)
[2016-11-11] MEDS: ISOSORBIDE MONONITRATE 60 MG TAB.ER.24H PO SCH (09:34)
[2016-11-11] MEDS: ASPIRIN 81 MG TABLET, ENT COATED PO SCH (09:35)
[2016-11-11] MEDS: DOCUSATE SODIUM 100 MG CAPSULE PO SCH ×2 (09:35→18:23)
[2016-11-11 10:32] LABS: CREATINE KINASE MB 0.47 ng/mL (<4.55)
[2016-11-11 10:36] LABS: TROPONIN I < 0.012 ng/mL
[2016-11-11] MEDS ORDERED: NITROGLYCERIN 0.4 MG/TAB 25 TAB/BOTTLE SL PRN (11:02)
--- NOTE | 2016-11-11 11:02 | PDOC PROGRESS REPORT ---
Subjective Progress Note for:: 11/11/16 Subjective:: Patient doing well until a few hours ago patient started to develop left-sided chest pain and pressure. There is no shortness of breath, nausea or vomiting, sweating, nor diaphoresis. There was no cough chills or fever. It is localized without any radiation. Physical Exam Vital Signs: Temp Pulse Resp BP Pulse Ox 98.0 F 68 18 155/92 H 99 11/11/16 08:00 11/11/16 08:00 11/11/16 08:00 11/11/16 08:00 11/11/16 08:00 Intake & Output 11/10/16 11/11/16 11/12/16 06:59 06:59 06:59 Intake Total 1618 Balance 1618 Weight 88 kg General appearance: PRESENT: no acute distress, cooperative Head exam: PRESENT: normocephalic Eye exam: PRESENT: EOMI Mouth exam: PRESENT: moist, neck supple Neck exam: ABSENT: JVD Respiratory exam: PRESENT: clear to auscultation jose enrique, unlabored. ABSENT: rales , wheezes Cardiovascular exam: PRESENT: RRR. ABSENT: gallop GI/Abdominal exam: PRESENT: distended - Obese, soft. ABSENT: tenderness Extremities exam: PRESENT: other - Trace lower extremity edema Skin exam: PRESENT: dry, warm. ABSENT: cyanosis Results Laboratory Results: 11/11/16 06:46 Urine Color YELLOW Urine Appearance CLEAR Urine pH 5.0 Ur Specific [place] 1.017 Urine Protein NEGATIVE Urine Glucose (UA) >=500 H Urine Ketones NEGATIVE Urine Blood NEGATIVE Urine Nitrite NEGATIVE Ur Leukocyte Esterase NEGATIVE Urine WBC (Auto) 2 Urine RBC (Auto) 0 11/10/16 11/10/16 11/11/16 21:44 21:44 03:57 Creatine Kinase 90 66 CK-MB (CK-2) 0.69 Troponin I 0.017 11/11/16 11/11/16 11/11/16 03:57 09:47 09:47 Creatine Kinase 51 L CK-MB (CK-2) 0.58 0.47 Troponin I < 0.012 < 0.012 Impressions: Chest X-Ray 11/10/16 15:24 IMPRESSION: No acute findings in the chest. Assessment & Plan - Diagnosis (1) Chest pain Qualifiers: Chest pain type: unspecified Qualified Code(s): R07.9 - Chest pain, unspecified Is this a current diagnosis for this admission?: Yes (2) Diabetes mellitus type 2 in obese Is this a current diagnosis for this admission?: Yes (3) Essential hypertension Is this a current diagnosis for this admission?: Yes (4) Hyperlipidemia Qualifiers: Hyperlipidemia type: unspecified Qualified Code(s): E78.5 - Hyperlipidemia , unspecified Is this a current diagnosis for this admission?: Yes (5) Coronary artery disease Qualifiers: Coronary Disease-Associated Artery/Lesion type: [place] artery [place] vs. transplanted heart: [place] heart Associated angina: angina presence unspecified Qualified Code(s): I25.10 - Atherosclerotic heart disease of [place] coronary artery without angina pectoris Is this a current diagnosis for this admission?: Yes (6) CHF with unknown LVEF Is this a current diagnosis for this admission?: Yes (7) Peripheral vascular disease Is this a current diagnosis for this admission?: Yes (8) Chronic pain syndrome Is this a current diagnosis for this admission?: Yes - Time Time Spent with patient: 25-34 minutes - Plan Summary Plan Summary: Recheck troponins. Continue nitrates. Begin sublingual nitroglycerin. Continue oxygen and antiplatelet therapy. Obtain stress test and enzymes are negative in the morning.
[2016-11-11 14:09] LABS: CREATINE KINASE MB 0.44 ng/mL (<4.55)
[2016-11-11 14:14] LABS: TROPONIN I < 0.012 ng/mL
[2016-11-11 18:00] LABS: CREATINE KINASE MB 0.49 ng/mL (<4.55)
[2016-11-11 18:14] LABS: TROPONIN I < 0.012 ng/mL
[2016-11-11] MEDS: INSULIN GLARGINE,HUM.REC.ANLOG 1,000 UNIT/10 ML UNIT SUBCUT SCH (21:52)
[2016-11-11] MEDS ORDERED: INSULIN GLARGINE,HUM.REC.ANLOG 1,000 UNIT/10 ML UNIT SUBCUT SCH (22:00)
--- NOTE | 2016-11-11 22:06 | EKG REPORT ---
SEVERITY:- BORDERLINE ECG - SINUS RHYTHM BORDERLINE LEFT AXIS DEVIATION BORDERLINE T ABNORMALITIES, ANT-LAT LEADS : Confirmed by: Henrique Cedeño 11-Nov-2016 22:05:42
[2016-11-11 22:07] LABS: CREATINE KINASE MB 0.42 ng/mL (<4.55)
[2016-11-11 22:10] LABS: TROPONIN I < 0.012 ng/mL
[2016-11-12] MEDS: GABAPENTIN 400 MG CAPSULE PO SCH ×3 (05:27→21:33)
[2016-11-12] MEDS: LANSOPRAZOLE 30 MG TAB.RAP.DR PO SCH (05:28)
[2016-11-12] MEDS: CLOPIDOGREL BISULFATE 75 MG TABLET PO SCH (10:28)
[2016-11-12] MEDS: ASPIRIN 81 MG TABLET, ENT COATED PO SCH (10:28)
[2016-11-12] MEDS: ISOSORBIDE MONONITRATE 60 MG TAB.ER.24H PO SCH (10:29)
[2016-11-12] MEDS: DOCUSATE SODIUM 100 MG CAPSULE PO SCH ×2 (10:29→18:38)
[2016-11-12] MEDS ORDERED: REGADENOSON INJ 0.4 MG/5 ML DISP.SYRIN IV ONE (11:45)
[2016-11-12] MEDS: ENOXAPARIN SODIUM INJ 40 MG/0.4 ML DISP.SYRIN SUBCUT SCH (13:27)
--- NOTE | 2016-11-12 15:15 | PDOC TRANSFER SUMMARY ---
General Admission Date/PCP: 11/10/16 17:57 ELPIDIO VEGA PA-C Admission Date: 11/11/16 Transfer Date: 11/12/16 Accepting Facility: [facility] Accepting Physician: Dr. Taylor Resuscitation Status: Full Code - Transfer Diagnosis (1) Chest pain Is this a current diagnosis for this admission?: Yes (2) Diabetes mellitus type 2 in obese Is this a current diagnosis for this admission?: Yes (3) Essential hypertension Is this a current diagnosis for this admission?: Yes (4) Hyperlipidemia Is this a current diagnosis for this admission?: Yes (5) Coronary artery disease Is this a current diagnosis for this admission?: Yes (6) CHF with unknown LVEF Is this a current diagnosis for this admission?: Yes (7) Peripheral vascular disease Is this a current diagnosis for this admission?: Yes (8) Chronic pain syndrome Is this a current diagnosis for this admission?: Yes - Transfer Medications Home Medications: Clopidogrel Bisulfate [Plavix] 75 mg PO DAILY 06/20/14 Furosemide [Lasix 20 mg Tablet] 20 mg PO QAM 06/20/14 Insulin Glargine,Hum.rec.anlog [Lantus] 25 unit SQ QHS PRN 06/20/14 Isosorbide Mononitrate [Imdur 60 mg Tablet.er] 120 mg PO DAILY 06/20/14 Aspirin [Aspirin EC] 81 mg PO DAILY 05/13/16 Cyanocobalamin (Vitamin B-12) [Vitamin B-12 1000 Mcg Tablet] 1,000 mcg PO DAILY 05/13/16 Diclofenac Sodium [Voltaren] 1 applic TOP Q6HP PRN 05/13/16 Gabapentin [Gabapentin] 1,200 mg PO QHS 05/13/16 Gabapentin [Gabapentin] 800 mg PO BID 05/13/16 Lidocaine [Lidocaine] 1 applic TOP Q6HP PRN 05/13/16 Metoprolol Tartrate [Lopressor 50 mg Tablet] 50 mg PO BID 11/10/16 Transfer Medications: Current Medications Aspirin (Ecotrin 81 Mg Ec Tablet) 81 mg PO DAILY [facility] Stop: 12/11/16 09:59 Last Admin: 11/12/16 10:28 Dose: 81 mg Clopidogrel Bisulfate (Plavix 75 Mg Tablet) 75 mg PO DAILY [facility] Stop: 12/11/16 09:59 Last Admin: 08/28/17 10:28 Dose: 75 mg Dextrose (Dextrose Inj 50% Syringe (25 Gm/50 Ml)) 12.5 gm IV PRN PRN; Protocol PRN Reason: FOR BG 50-69 IN ALERT PATIENT Stop: 12/10/16 18:12 Dextrose (Dextrose Inj 50% Syringe (25 Gm/50 Ml)) 25 gm IV PRN PRN PRN Reason: Protocol Stop: 12/10/16 18:12 Docusate Sodium (Colace 100 Mg Capsule) 100 mg PO BID [facility] Stop: 12/11/16 09:59 Last Admin: 11/12/16 10:29 Dose: 100 mg Enoxaparin Sodium (Lovenox Inj 40 Mg/0.4 Ml Disp.Syrin) 40 mg SUBCUT DAILY [facility] Stop: 12/11/16 09:59 Last Admin: 11/12/16 13:27 Dose: Not Given Gabapentin (Neurontin 400 Mg Capsule) 800 mg PO BID@0600,1400 [facility] Stop: 12/11/16 05:59 Last Admin: 11/12/16 14:21 Dose: 800 mg Gabapentin (Neurontin 400 Mg Capsule) 1,200 mg PO QHS [facility] Stop: 12/10/16 21:59 Last Admin: 11/11/16 21:49 Dose: 1,200 mg Glucagon (Glucagen Inj 1 Mg Vial) 1 mg IM PRN PRN; Protocol PRN Reason: Evaluate for BG < 70 Stop: 12/10/16 18:12 Glucose (Glutose 40% Gel 15 Gm Tube) 15 gm PO PRN PRN; Protocol PRN Reason: FOR BG 50-69 IN ALERT PATIENT Stop: 12/10/16 18:12 Glucose (Glutose 40% Gel 15 Gm Tube) 30 gm PO PRN PRN; Protocol PRN Reason: FOR BG < 50 IN ALERT PATIENT Stop: 12/10/16 18:12 Insulin Glargine (Lantus Insulin 100 Unit/1 Ml 10 Ml) 25 unit SUBCUT QHS [facility] Stop: 12/11/16 21:59 Last Admin: 11/11/16 21:52 Dose: 25 unit Insulin Human Regular (Humulin R (Pyxis) Insulin 100 Unit/Ml 3ml) 0 - 12 unit SUBCUT [facility] PRN PRN Reason: Protocol Stop: 12/10/16 18:12 Last Admin: 11/10/16 22:30 Dose: 4 unit Isosorbide Mononitrate (Imdur 60 Mg Tablet.Er) 120 mg PO DAILY [facility] Stop: 12/11/16 09:59 Last Admin: 11/12/16 10:29 Dose: 120 mg Lansoprazole (Prevacid 30 Mg Odt Tablet) 30 mg PO Q6AM [facility] Stop: 12/11/16 05:59 Last Admin: 11/12/16 05:28 Dose: 30 mg Nitroglycerin (Nitrostat 0.4 Mg (1/150 Gr) Tabs 25/Bottle) 1 tab SL Q5MP PRN Stop: 12/11/16 11:01 Ondansetron HCl (Zofran Inj/Pf 4 Mg/2 Ml Sdv) 4 mg IV Q4HP PRN PRN Reason: FOR NAUSEA/VOMITING Stop: 12/10/16 18:05 Sodium Chloride (Saline Flush 2.5 Ml Monoject Prefil Syrin) 2.5 ml IV Q8 [facility] Stop: 12/10/16 21:59 Last Admin: 11/12/16 05:30 Dose: 2.5 ml Metoprolol 50mg PO BID. - Allergies Allergies/Adverse Reactions: acetaminophen [From Percocet] Allergy (Verified 11/10/16 15:05) latex [Latex] Allergy (Verified 11/10/16 15:05) oxycodone [From Percocet] Allergy (Verified 11/10/16 15:05) adhesive tape [Adhesive Tape] Adverse Reaction (Verified 11/10/16 15:05) - Diet/Activity Discharge Diet: Cardiac, Diabetic Discharge Activity: Bedrest Hospital Course Hospital Course: The patient was placed on observation. Serial cardiac enzymes were negative for myocardial infarction. He was continued on his anti-platelet therapy and supplemental O2. Nitrates were given as well. He developed recurrent CP, eventually, stress test was done and showedAbnormal TID ratio with moderate reversible ischemia in basal and mid anterior wall, and mild reversible ischemia in basal inferior wall. Cardiology recommended cardiac catheterization. 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 Dr. Taylor responded from the Cardiac connection services and accepted the patient. He was eventually transfered when a bed was available. Physical Exam Vital Signs: Temp Pulse Resp BP Pulse Ox 98.3 F 73 18 126/73 H 100 11/12/16 11:43 11/12/16 11:43 11/12/16 11:43 11/12/16 11:43 11/12/16 11:43 Intake & Output 11/11/16 11/12/16 11/13/16 06:59 06:59 06:59 Intake Total 1618 1490 Balance 1618 1490 Weight 88 kg 89.9 kg General appearance: PRESENT: no acute distress, cooperative, morbidly obese Head exam: PRESENT: normocephalic Eye exam: PRESENT: EOMI Mouth exam: PRESENT: moist, neck supple Neck exam: ABSENT: JVD Respiratory exam: PRESENT: clear to auscultation jose enrique. ABSENT: rhonchi, wheezes Cardiovascular exam: PRESENT: RRR, +S1, +S2. ABSENT: gallop GI/Abdominal exam: PRESENT: normal bowel sounds, soft. ABSENT: distended - obese, tenderness Extremities exam: PRESENT: other - trace LE edema B/L Neurological exam: PRESENT: alert, awake, oriented to person, oriented to place , oriented to time, oriented to situation Skin exam: PRESENT: dry, warm. ABSENT: cyanosis Results Laboratory Results: 11/10/16 11/10/16 11/11/16 21:44 21:44 03:57 Creatine Kinase 90 66 CK-MB (CK-2) 0.69 Troponin I 0.017 11/11/16 11/11/16 11/11/16 03:57 09:47 09:47 Creatine Kinase 51 L CK-MB (CK-2) 0.58 0.47 Troponin I < 0.012 < 0.012 11/11/16 11/11/16 11/11/16 13:34 13:34 17:25 Creatine Kinase 52 L 54 L CK-MB (CK-2) 0.44 Troponin I < 0.012 11/11/16 11/11/16 11/11/16 17:25 21:30 21:30 Creatine Kinase 49 L CK-MB (CK-2) 0.49 0.42 Troponin I < 0.012 < 0.012 Impressions: Chest X-Ray 11/10/16 15:24 IMPRESSION: No acute findings in the chest. Plan Discharge Plan: Transfer to tertiary facility for cardiac catheterization. Time Spent: Less than 30 Minutes
[2016-11-12] MEDS: METOPROLOL TARTRATE 50 MG TABLET PO SCH (21:33)
[2016-11-12] MEDS: INSULIN REG, HUMAN 100 UNIT/ML 3 ML VIAL (PYX) SUBCUT PRN (21:33)
[2016-11-12] MEDS: INSULIN GLARGINE,HUM.REC.ANLOG 1,000 UNIT/10 ML UNIT SUBCUT SCH (21:59)
[2016-11-13] MEDS: LANSOPRAZOLE 30 MG TAB.RAP.DR PO SCH (06:21)
[2016-11-13] MEDS: GABAPENTIN 400 MG CAPSULE PO SCH ×2 (06:21→15:42)
[2016-11-13] MEDS: CLOPIDOGREL BISULFATE 75 MG TABLET PO SCH (09:11)
[2016-11-13] MEDS: ASPIRIN 81 MG TABLET, ENT COATED PO SCH (09:11)
[2016-11-13] MEDS: METOPROLOL TARTRATE 50 MG TABLET PO SCH (09:11)
[2016-11-13] MEDS: DOCUSATE SODIUM 100 MG CAPSULE PO SCH ×2 (09:11→16:39)
[2016-11-13] MEDS: ISOSORBIDE MONONITRATE 60 MG TAB.ER.24H PO SCH (09:13)
[2016-11-13] MEDS: ENOXAPARIN SODIUM INJ 40 MG/0.4 ML DISP.SYRIN SUBCUT SCH (09:14)
[2016-11-13 11:56] VITALS: BP 123/70
--- NOTE | 2016-11-13 16:55 | PDOC PROGRESS REPORT ---
Subjective Progress Note for:: 11/13/16 Subjective:: Patient is currently pending transportation to [facility] for a cardiac catheterization due to a positive stress test. He denies any chest pain, shortness of breath, dyspnea on exertion. He reports that he only takes 5 units of Lantus at bedtime Physical Exam Vital Signs: Temp Pulse Resp BP Pulse Ox 98.0 F 64 17 121/72 98 11/13/16 07:50 11/13/16 07:50 11/13/16 07:50 11/13/16 07:50 11/13/16 07:50 Intake & Output 11/12/16 11/13/16 11/14/16 06:59 06:59 06:59 Intake Total 1490 1711 Output Total 500 Balance 1490 1211 Weight 89.9 kg 89.9 kg Exam: General: Obese, Awake alert and oriented x3, no acute respiratory distress HEENT: AT/NC, PERRL, EOMI, oropharynx is moist, pink, no scleral icterus, no conjunctival injection Neck: No JVD, trachea midline Chest: Clear to auscultation bilaterally, no wheezes rhonchi or rales CV: Regular rate and rhythm, normal S1 and S2, no murmur, rub, or gallop Abdomen: Soft, nontender to palpation, nondistended, active bowel sounds; no rebound, rigidity, or guarding Extremities: No cyanosis, clubbing or edema Neuro: Cranial nerves II through XII are grossly intact without focal deficits; awake alert and oriented x3 Psych: Normal mood and affect Results Laboratory Results: 11/10/16 11/10/16 11/11/16 21:44 21:44 03:57 Creatine Kinase 90 66 CK-MB (CK-2) 0.69 Troponin I 0.017 11/11/16 11/11/16 11/11/16 03:57 09:47 09:47 Creatine Kinase 51 L CK-MB (CK-2) 0.58 0.47 Troponin I < 0.012 < 0.012 11/11/16 11/11/16 11/11/16 13:34 13:34 17:25 Creatine Kinase 52 L 54 L CK-MB (CK-2) 0.44 Troponin I < 0.012 11/11/16 11/11/16 11/11/16 17:25 21:30 21:30 Creatine Kinase 49 L CK-MB (CK-2) 0.49 0.42 Troponin I < 0.012 < 0.012 Impressions: Chest X-Ray 11/10/16 15:24 IMPRESSION: No acute findings in the chest. Assessment & Plan - Diagnosis (1) CHF with unknown LVEF Is this a current diagnosis for this admission?: Yes Plan: At this time, patient is pending transfer for cardiac catheterization based on his risk factors. Patient is currently medically stable. (2) Chest pain Qualifiers: Chest pain type: unspecified Qualified Code(s): R07.9 - Chest pain, unspecified Is this a current diagnosis for this admission?: Yes Plan: Patient has had no further chest pain. (3) Chronic pain syndrome Is this a current diagnosis for this admission?: Yes (4) Coronary artery disease Qualifiers: Coronary Disease-Associated Artery/Lesion type: [place] artery [place] vs. transplanted heart: [place] heart Associated angina: angina presence unspecified Qualified Code(s): I25.10 - Atherosclerotic heart disease of [place] coronary artery without angina pectoris Is this a current diagnosis for this admission?: Yes Plan: Generic Name Dose Route Start Last Admin Trade Name Freq PRN Reason Stop Dose Admin Isosorbide Mononitrate 120 mg 11/11/16 10:00 11/13/16 09:13 Imdur 60 Mg Tablet.Er PO 12/11/16 09:59 120 mg DAILY [facility] Metoprolol Tartrate 50 mg 11/12/16 22:00 11/13/16 09:11 Lopressor 50 Mg Tablet PO 12/12/16 21:59 50 mg Q12 [facility] Nitroglycerin 1 tab 11/11/16 11:02 Nitrostat 0.4 Mg (1/150 Gr) Tabs 25/Bottle SL 12/11/16 11:01 Q5MP PRN Aspirin 81 mg 11/11/16 10:00 11/13/16 09:11 Ecotrin 81 Mg Ec Tablet PO 12/11/16 09:59 81 mg DAILY [facility] Clopidogrel Bisulfate 75 mg 11/11/16 10:00 11/13/16 09:11 Plavix 75 Mg Tablet PO 12/11/16 09:59 75 mg DAILY [facility] (5) Diabetes mellitus type 2 in obese Is this a current diagnosis for this admission?: Yes Plan: Place patient on Lantus 5 units nightly in addition to sliding scale (6) Essential hypertension Is this a current diagnosis for this admission?: Yes (7) Hyperlipidemia Qualifiers: Hyperlipidemia type: unspecified Qualified Code(s): E78.5 - Hyperlipidemia , unspecified Is this a current diagnosis for this admission?: Yes Plan: Patient was not on a statin as an outpatient, and I do not see an allergy to 1. We will start this (8) Peripheral vascular disease Is this a current diagnosis for this admission?: Yes - Time Time Spent with patient: 25-34 minutes Medications reviewed and adjusted accordingly: Yes
[2016-11-13] MEDS ORDERED: ATORVASTATIN CALCIUM 10 MG TABLET PO SCH (17:00)
--- NOTE | 2016-11-13 19:02 | DRAGON STRESS TEST REPORT ---
Intravenous Lexiscan Cardiolite stress test using single photon emmision computerized tomography. Date of procedure: 11/12/2016. Ordering Provider: Dr. Freeman. Patient's status : Inpatient Indication: Chest pain, in a patient with history of known coronary artery disease, history of myocardial infarctions, and history of coronary artery bypass graft surgery. Coronary risk factors: Patient has a history of coronary artery disease, history of MS's, and history of coronary bypass graft surgery. Other risk factors are his age diabetes mellitus type 2 hypertension Resting EKG: Sinus rhythm none specific T changes inferior leads. Poor R-wave progression V1 to V4 possible old anterior MS. Stress EKG: No changes of ischemia. The patient had no chest pain or discomfort, and there were no arrhythmias seen. Reason for termination: Protocol. Conclusions: Normal EKG and hemodynamic response to IV Lexiscan. Nuclear data: At rest the patient was given 12.96 millicuries of technetium 99m sestamibi injected intravenously. As per protocol rest non gated SPECT images were obtained. Subsequently the patient was given intravenous Lexiscan at a dose of 0.4 mg in 5 mL intravenously, followed by flush with normal saline. Subsequently the stress dose of 39.5 millicuries of technetium 99m sestamibi was injected intravenously. As per protocol stress gated images were obtained. Nuclear interpretation: Review of images showed that all segments of the myocardium had a moderate perfusion defect involving the basal and mid anterior michelle in the stress images which normalizes in the rest images. Also there is a probable mild perfusion defect in the basal inferior wall in the in the stress images, which normalizes in the rest images. The rest of the myocardial segments showed normal perfusion at rest, and normal perfusion post stress with IV Lexiscan. All segments of the myocardium had normal motion, contraction, and thickening by gated study. T. I D. ratio was abnormal at 1.29. Visually also there was abnormal TID ratio computer read rest, and stress left ventricular ejection fraction were 54 %, and 57 %, respectively. Conclusion: 1. There is scintigraphic evidence of Lexiscan induced myocardial ischemia, which is moderate in the basal and mid anterior michelle, and mild in the basal inferior wall. Strongly recommend transferring the patient to tertiary care center for this. 2. There is no scintigraphic evidence of myocardial infarction/scar. 3. Abnormal T ID ratio, which could mean significant coronary artery disease. Recommendations: 1. Strongly recommend cardiac catheterization, and aggressive treatment of coronary artery disease. 2.Aggressive risk factor modification, and treating the underlying co- morbidities. This has been discussed with Dr. Freeman the attending physician on this patient this admission. CATHERINE
[2016-11-13] MEDS ORDERED: INSULIN GLARGINE,HUM.REC.ANLOG 1,000 UNIT/10 ML UNIT SUBCUT SCH (22:00)
== END 2016-11-13 16:50 | disposition short-term general hospital (02) ==
LOC: ER 14:47 → UNDOADMOB 17:10 → EH 17:10 → EEVIPCON 17:57 → EH 17:57 → 4N 18:50 → EH 18:50
DX: R07.9 Chest pain, unspecified (principal); E11.9 Type 2 diabetes mellitus without complications; E66.9 Obesity, unspecified; I11.0 Hypertensive heart disease with heart failure; I50.9 Heart failure, unspecified; E78.5 Hyperlipidemia, unspecified; I25.10 Atherosclerotic heart disease of native coronary artery without angina pectoris; I73.9 Peripheral vascular disease, unspecified; G89.4 Chronic pain syndrome; R05 Cough; R94.39 Abnormal result of other cardiovascular function study; I25.2 Old myocardial infarction; R68.83 Chills (without fever); R61 Generalized hyperhidrosis; Z79.899 Other long term (current) drug therapy; Z79.82 Long term (current) use of aspirin; Z79.02 Long term (current) use of antithrombotics/antiplatelets; Z95.5 Presence of coronary angioplasty implant and graft; Z95.1 Presence of aortocoronary bypass graft; Z87.891 Personal history of nicotine dependence; Z82.49 Family history of ischemic heart disease and other diseases of the circulatory system; Z79.4 Long term (current) use of insulin; Z68.32 Body mass index [BMI] 32.0-32.9, adult
CPT/HCPCS: 93005 ×2; 99285; 36415 ×2; 82553 ×2; 82962 ×4; 82550 ×2; 83690; 85025; 80053; 81001; 84484 ×2; 85379; 83880; 93017; 71020; 78452; 93010 ×2; G0378 ×5; A9500; J2785; J1815 ×4; J1650; J3490 ×4; Q9969

== ENCOUNTER 2016-11-22 19:29 | Emergency (ER) | payer OTHER ==
[2016-11-22] MEDS ORDERED: MORPHINE SULFATE 10 MG/ML INJ IV ONE (20:04)
--- NOTE | 2016-11-22 20:06 | ER Document Report ---
ED Cardiac - General Chief Complaint: Chest Pain > 30 Stated Complaint: CHEST DISCOMFORT Time Seen by Provider: 11/22/16 19:56 Notes: Patient is a 61-year-old male that comes emergency department for chief complaint of chest pain, he reports pain is on his left side, does not radiate, feels like a pressure and also somewhat sharp. Symptoms started at about 7 PM and have been continuous. He states he took 4 sublingual nitroglycerin at home. He states the pain did not change. He denies injury to the area, cough, fever, nausea, vomiting. He states he was sweating at about 7 PM. He has extensive history including VT 12, CABG, multiple stents, last stent was in 2009. He also has type 2 diabetes and hypertension. Former smoker. 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 He is on Plavix. He states he took 324 mg ASA before coming to the ED. TRAVEL OUTSIDE OF THE [place] IN LAST 30 DAYS: No - Related Data Allergies/Adverse Reactions: acetaminophen [From Percocet] Allergy (Verified 11/22/16 21:08) latex [Latex] Allergy (Verified 11/22/16 21:08) oxycodone [From Percocet] Allergy (Verified 11/22/16 21:08) adhesive tape [Adhesive Tape] Adverse Reaction (Verified 11/22/16 21:08) Past Medical History - General Information source: Patient - Social History Smoking Status: Former Smoker Frequency of alcohol use: None Drug Abuse: None Lives with: Family Family History: CAD, DM, Hypertension Patient has suicidal ideation: No Patient has homicidal ideation: No - Past Medical History Cardiac Medical History: Reports: Hx Congestive Heart Failure, Hx Coronary Artery Disease, Hx Heart Attack - x14, Hx Hypercholesterolemia, Hx Hypertension Pulmonary Medical History: Reports: Hx Pneumonia Endocrine Medical History: Reports: Hx Diabetes Mellitus Type 2 Renal/ Medical History: Denies: Hx Peritoneal Dialysis Psychiatric Medical History: Denies: Hx Depression Past Surgical History: Reports: Hx Cardiac Catheterization, Hx Cardiac Surgery - CABG, Hx Coronary Artery Bypass Graft - 3 vessel CABG, Hx Coronary Stent - 5 angioplasties, last 2 stents placed on Immunizations Hx Diphtheria, Pertussis, Tetanus Vaccination: Yes Review of Systems - Review of Systems Constitutional: No symptoms reported EENT: No symptoms reported Cardiovascular: See HPI Respiratory: No symptoms reported Gastrointestinal: No symptoms reported Genitourinary: No symptoms reported Male Genitourinary: No symptoms reported Musculoskeletal: No symptoms reported Skin: No symptoms reported Hematologic/Lymphatic: No symptoms reported Neurological/Psychological: No symptoms reported Physical Exam - Vital signs Vitals: Temp Pulse Resp BP Pulse Ox 98.7 F 66 20 128/75 H 97 11/22/16 19:35 11/22/16 19:35 11/22/16 19:35 11/22/16 19:35 11/22/16 19:35 Interpretation: Normal - General General appearance: Appears well, Alert In distress: None - HEENT Head: Normocephalic, Atraumatic Eyes: Normal Pupils: PERRL - Respiratory Respiratory status: No respiratory distress. No: Labored, Tachypnea Chest status: Tender - minimal tenderness over the anterior chest wall on the left side, none on the right side; normal ROM of the left arm and shoulder without pain; no swelling, erythema, or crepitus. Breath sounds: Normal. No: Decreased air movement, Nonproductive cough, Wheezing Chest palpation: Normal - Cardiovascular Rhythm: Regular. No: Tachycardia Heart sounds: Normal auscultation, S1 appreciated, S2 appreciated Murmur: No - Abdominal Inspection: Normal Distension: No distension Bowel sounds: Normal Tenderness: Nontender Organomegaly: No organomegaly - Back Back: Normal, Nontender - Extremities General upper extremity: Normal inspection, Nontender, Normal color, Normal ROM , Normal temperature General lower extremity: Normal inspection, Nontender, Normal color, Normal ROM , Normal temperature, Normal weight bearing. No: Edema, James's sign - Neurological Neuro grossly intact: Yes Cognition: Normal Orientation: AAOx4 [place] Coma Scale Eye Opening: Spontaneous [place] Coma Scale Verbal: Oriented [place] Coma Scale Motor: Obeys Commands [place] Coma Scale Total: 15 Speech: Normal Motor strength normal: LUE, RUE, LLE, RLE Sensory: Normal - Psychological Associated symptoms: Normal affect, Normal mood - Skin Skin Temperature: Warm Skin Moisture: Dry Skin Color: Normal Course - Re-evaluation Re-evalutation: Review of records shows the patient was here just over 1 week ago, transferred on 11/13/2016 to [place] after patient had an abnormal stress test. Patient states that despite being transferred he did not have a cardiac catheterization although this is what he wished. states she thinks they were told it was too risky but she is not sure. EKG shows sinus rhythm at a rate of 64 with borderline T-wave inversions in inferior leads, no change from prior. Borderline left axis deviation. No ischemic T waves or ST segment changes. No significant change from prior. Chest x-ray unremarkable. CBC generally unremarkable. Chemistry showing mild hyperglycemia with no concerning findings with bicarbonate or anion gap. Initial cardiac enzymes negative. Patient chest pain-free after given 2 mg of morphine, however pain returned. Patient has minimal chest wall tenderness on palpation although he states it is different from the chest pains that he is having and he does not have pain with movement. He states pain comes and occasional waves and then resolves. Currently states he has 3 out of [address] on nitroglycerin drip. Discussed with Dr. Oconnor. Patient clarified that he has not taken aspirin since early this morning, aspirin was given, Dr. Oconnor recommends Lovenox. Agrees with transfer because of unstable angina symptoms with complex cardiac history and recent abnormal stress test. Patient stating he wants to go to [place] instead of [place], however he states that he is completely okay with having [facility] contacted because he was just discharged from that facility. He still states that at this time he wants to go to [place]. 11/22/16 21:15 Call placed to [facility]. Spoke with Dr. Flannery, Cardiology. Discussed patient history, workup, examination. He did review patient's records, found that patient was placed on Imdur before discharge but a cardiac catheterization was not performed. Patient reports to me he is taking the Imdur. He states they will accept patient in transfer if patient is willing to come. I discussed with patient, discussed that they are willing to accept him if he is willing to go there versus going to [place]. Patient states he will go to [place]. 11/22/16 23:55 Patient reassessed again, no current complaints, transport should be here within the hour, vital signs stable, he states he is just ready to leave and he is okay. 11/23/16 00:36 EMS has arrived, patient reevaluated at bedside again, no current complaints, no changes, he states he does not have chest pain at this time. Stable for transfer. - Vital Signs Vital signs: Temp Pulse Resp BP Pulse Ox 97.7 F 66 13 122/79 97 11/23/16 00:35 11/22/16 19:35 11/23/16 00:33 11/23/16 00:33 11/23/16 00:33 - Laboratory Result Diagrams: 11/22/16 20:03 11/22/16 20:03 Laboratory results interpreted by me: 11/22/16 20:03 Sodium 136.4 L Glucose 258 H Creatine Kinase 48 L Total Protein 5.7 L Albumin 3.4 L Critical Care Note - Critical Care Note Total time excluding time spent on procedures (mins): 40 - unstable angina Comments: Please allow 40 minutes of critical care time for evaluation and treatment of patient with unstable angina, requiring multiple re-evaluations, review of previous records, discussions with patient and , consultation and transfer to tertiary care center. Interventions including pain medication, anticoagulation, and nitroglycerin drip. Discharge - Discharge Clinical Impression: Unstable angina Chest pain Qualifiers: Chest pain type: unspecified Qualified Code(s): R07.9 - Chest pain, unspecified Condition: Stable Disposition: [facility] Referrals: ELPIDIO VEGA PA-C [Primary Care Provider] - Follow up as needed
[2016-11-22 20:23] LABS: ABSOLUTE BASOPHILS # (AUTO) 0.1 10^3/uL (0.0-0.2); ABSOLUTE EOSINOPHILS # (AUTO) 0.2 10^3/uL (0.0-0.6); ABSOLUTE LYMPHOCYTES (AUTO) 1.7 10^3/uL (0.5-4.7); ABSOLUTE MONOCYTES (AUTO) 0.5 10^3/uL (0.1-1.4); ABSOLUTE NEUT (AUTO) 5.5 10^3/uL (1.7-8.2); BASOPHILS % (AUTO) 0.8 % (0-2); EOSINOPHILS % (AUTO) 2.1 % (0-6); HEMATOCRIT 42.7 % (37.9-51.0); HEMOGLOBIN 14.7 g/dL (13.5-17.0); HGB HCT DIFFERENCE 1.4; LYMPHOCYTES % (AUTO) 21.3 % (13-45); MEAN CORPUSCULAR HEMOGLOBIN 30.2 pg (27.0-33.4); MEAN CORPUSCULAR HGB CONC 34.5 g/dL (32.0-36.0); MEAN CORPUSCULAR VOLUME 88 fl (80-97); MONOCYTES % (AUTO) 6.1 % (3-13); RED BLOOD COUNT 4.88 10^6/uL (4.35-5.55); SEGMENTED NEUTROPHILS % (AUTO) 69.7 % (42-78); WHITE BLOOD COUNT 7.9 10^3/uL (4.0-10.5)
--- NOTE | 2016-11-22 20:34 | RADIOLOGY REPORT (SQ) ---
EXAM DESCRIPTION: CHEST SINGLE VIEW COMPLETED DATE/TIME: 11/22/2016 8:17 pm REASON FOR STUDY: CP COMPARISON: 11/10/2016. EXAM PARAMETERS: NUMBER OF VIEWS: One view. TECHNIQUE: Single frontal radiographic view of the chest acquired. RADIATION DOSE: NA LIMITATIONS: None. FINDINGS: LUNGS AND PLEURA: No opacities, masses or pneumothorax. No pleural effusion. MEDIASTINUM AND HILAR STRUCTURES: No masses. Contour normal. HEART AND VASCULAR STRUCTURES: Stable mild cardiomegaly. Normal vasculature. BONES: No acute findings. HARDWARE: Sternotomy wires, coronary bypass markers, and surgical clips. OTHER: No other significant finding. IMPRESSION: NO ACUTE RADIOGRAPHIC FINDING IN THE CHEST. TECHNICAL DOCUMENTATION: JOB ID: [id number]
[2016-11-22 20:36] LABS: PROTHROMBIN TIME 13.7 SEC (11.4-15.4)
[2016-11-22 20:43] LABS: ALANINE AMINOTRANSFERASE 36 U/L (21-72); ALBUMIN 3.4 g/dL (3.5-5.0); ALKALINE PHOSPHATASE 113 U/L (38-126); ANION GAP 12 (5-19); ASPARTATE AMINO TRANSFERASE 26 U/L (17-59); BILIRUBIN,DIRECT 0.4 mg/dL (0.0-0.4); BILIRUBIN,TOTAL 0.6 mg/dL (0.2-1.3); BLOOD UREA NITROGEN 9 mg/dL (7-20); CALCIUM 9.1 mg/dL (8.4-10.2); CARBON DIOXIDE 22 mmol/L (22-30); CHLORIDE 102 mmol/L (98-107); CREATINE KINASE 48 U/L (55-170); CREATININE RESULT 0.91 mg/dL (0.52-1.25); GLUCOSE 258 mg/dL (75-110); POTASSIUM 3.9 mmol/L (3.6-5.0); SODIUM 136.4 mmol/L (137-145); TOTAL PROTEIN 5.7 g/dL (6.3-8.2)
[2016-11-22 20:54] LABS: CREATINE KINASE MB 0.29 ng/mL (<4.55)
[2016-11-22 20:58] LABS: TROPONIN I < 0.012 ng/mL
[2016-11-22] MEDS ORDERED: ASPIRIN 81 MG TABLET, CHEWABLE PO ONE (21:10)
[2016-11-22] MEDS ORDERED: NITROGLYCERIN/D5W 250 ML IV PRN (21:11)
[2016-11-22] MEDS ORDERED: NITROGLYCERIN 50 MG/D5W 250 ML IV PRN (21:28)
[2016-11-22] MEDS ORDERED: ENOXAPARIN SODIUM INJ 100 MG/1 ML DISP.SYRIN SUBCUT SCH (22:00)
[2016-11-23 00:36] VITALS: BP 122/79
--- NOTE | 2016-11-23 07:57 | EKG REPORT ---
SEVERITY:- BORDERLINE ECG - SINUS RHYTHM BORDERLINE LEFT AXIS DEVIATION BORDERLINE T ABNORMALITIES, INFERIOR LEADS : Confirmed by: Tunde Odonnell MD 23-Nov-2016 07:56:47
== END 2016-11-23 00:52 | disposition short-term general hospital (02) ==
LOC: ER 19:29
DX: I20.0 Unstable angina (principal); R07.9 Chest pain, unspecified; Z79.899 Other long term (current) drug therapy; Z87.891 Personal history of nicotine dependence
CPT/HCPCS: 93005; 99291; 96372; 96375; 96365; 96366; 36415; 82553; 82550; 85025; 85610; 80053; 84484; 71010; 93010; J2270; J3490; J1650

== ENCOUNTER 2016-11-27 05:16 | Emergency (ER) | payer OTHER ==
--- NOTE | 2016-11-27 05:37 | ER Document Report ---
ED Extremity Problem, Lower - General Chief Complaint: Knee Injury Stated Complaint: KNEE PAIN Time Seen by Provider: 11/27/16 05:30 Notes: The patient is a 61-year-old male who presents with right knee pain after he tripped and landed on the knee just prior to arrival. He denies open wounds, numbness, tingling, difficulty walking or any other injuries. TRAVEL OUTSIDE OF THE [place] IN LAST 30 DAYS: No - Related Data Allergies/Adverse Reactions: acetaminophen [From Percocet] Allergy (Verified 11/27/16 05:21) latex [Latex] Allergy (Verified 11/27/16 05:21) oxycodone [From Percocet] Allergy (Verified 11/27/16 05:21) adhesive tape [Adhesive Tape] Adverse Reaction (Verified 11/27/16 05:21) Past Medical History - General Information source: Patient - Social History Smoking Status: Current Every Day Smoker Family History: CAD, DM, Hypertension Patient has suicidal ideation: No Patient has homicidal ideation: No - Past Medical History Cardiac Medical History: Reports: Hx Congestive Heart Failure, Hx Coronary Artery Disease, Hx Heart Attack - x14, Hx Hypercholesterolemia, Hx Hypertension Pulmonary Medical History: Reports: Hx Pneumonia Endocrine Medical History: Reports: Hx Diabetes Mellitus Type 2 Renal/ Medical History: Denies: Hx Peritoneal Dialysis Psychiatric Medical History: Denies: Hx Depression Past Surgical History: Reports: Hx Cardiac Catheterization, Hx Cardiac Surgery - CABG, Hx Coronary Artery Bypass Graft - 3 vessel CABG, Hx Coronary Stent - 5 angioplasties, last 2 stents placed on, Hx Vascular Surgery - stent in LLE - Immunizations Hx Diphtheria, Pertussis, Tetanus Vaccination: Yes Review of Systems - Review of Systems Notes: REVIEW OF SYSTEMS: CONSTITUTIONAL: -fevers, -chills EENT: -eye pain, -difficulty swallowing, -nasal congestion CARDIOVASCULAR:-chest pain, -syncope. RESPIRATORY: -cough, -SOB GASTROINTESTINAL: -abdominal pain, - nausea, -vomiting, -diarrhea GENITOURINARY: -dysuria, -hematuria MUSCULOSKELETAL: +right knee pain, -back pain, -neck pain SKIN: -rash or skin lesions. HEMATOLOGIC: -easy bruising or bleeding. LYMPHATIC: -swollen, enlarged glands. NEUROLOGICAL: -altered mental status or loss of consciousness, -headache, - neurologic symptoms PSYCHIATRIC: -anxiety, -depression. ALL OTHER SYSTEMS REVIEWED AND NEGATIVE. Physical Exam - Notes Notes: PHYSICAL EXAMINATION: GENERAL: Well-appearing, well-nourished and in no acute distress. HEAD: Atraumatic, normocephalic. EYES: Pupils equal round and reactive to light, extraocular movements intact, sclera anicteric, conjunctiva are normal. ENT: nares patent, oropharynx clear without exudates. Moist mucous membranes. NECK: Normal range of motion, supple without lymphadenopathy LUNGS: Breath sounds clear to auscultation bilaterally and equal. No wheezes rales or rhonchi. HEART: Regular rate and rhythm without murmurs ABDOMEN: Soft, nontender, normoactive bowel sounds. No guarding, no rebound. No masses appreciated. EXTREMITIES: Superficial abrasions over right anterior knee, tenderness over right superior patella, able to lift leg off bed. Normal range of motion, no pitting or edema. No cyanosis. NEUROLOGICAL: Cranial nerves grossly intact. Normal speech, normal gait. Normal sensory and motor exams. PSYCH: Normal mood, normal affect. SKIN: Warm, Dry, normal turgor, no rashes or lesions noted. Course - Re-evaluation Re-evalutation: No fractures of right knee. Instructed about contusion management with anti- inflammatories. - Diagnostic Test Radiology reviewed: Image reviewed, Reports reviewed Radiology results interpreted by me: Right knee x-ray: NAD Discharge - Discharge Clinical Impression: Abrasion of knee, right Qualifiers: Encounter type: initial encounter Qualified Code(s): S80.211A - Abrasion, right knee, initial encounter Condition: Stable Disposition: HOME, SELF-CARE Additional Instructions: Contusion Your injury has resulted in a contusion -- a crushing of the deep tissues. No injury to important structures was detected during the physician's exam. Contusions vary in the amount of pain they cause, and in the length of time required for healing. Typically, the area will become bruised, and will remain painful to touch for two or three weeks. However, most patients are back to working and playing within a few days. After the initial period of rest and cold-packs, your symptoms (together with the doctor's recommendations) will determine how rapidly you can get back to full activity. Usually this means "do what feels okay, but don't do things that hurt." If re-examination was recommended, it's important to follow up as instructed. Call the doctor or return any time if pain increases, if swelling becomes severe, if you develop numbness or weakness in an injured extremity, or if any other alarming symptoms occur.
--- NOTE | 2016-11-27 06:07 | RADIOLOGY REPORT (SQ) ---
EXAM DESCRIPTION: KNEE RIGHT 4 VIEWS COMPLETED DATE/TIME: 11/27/2016 5:37 am REASON FOR STUDY: right knee pain COMPARISON: None. NUMBER OF VIEWS: Four views. TECHNIQUE: AP, lateral, and both oblique radiographic images acquired of the right knee. LIMITATIONS: None. FINDINGS: MINERALIZATION: Normal. BONES: No acute fracture or dislocation. No worrisome bone lesions. Minimal superior patellar enthe sophyte. JOINT: No effusion. SOFT TISSUES: No soft tissue swelling. No radio-opaque foreign body. OTHER: No other significant finding. IMPRESSION: NEGATIVE STUDY OF THE RIGHT KNEE. NO RADIOGRAPHIC EVIDENCE OF ACUTE INJURY. TECHNICAL DOCUMENTATION: JOB ID: [id number] [employer]- All Rights Reserved
== END 2016-11-27 05:50 | disposition home or self-care (01) ==
LOC: ER 05:16
DX: S80.211A Abrasion, right knee, initial encounter (principal); W10.9XXA Fall (on) (from) unspecified stairs and steps, initial encounter; Y92.009 Unspecified place in unspecified non-institutional (private) residence as the place of occurrence of the external cause; F17.200 Nicotine dependence, unspecified, uncomplicated; I25.10 Atherosclerotic heart disease of native coronary artery without angina pectoris; I25.2 Old myocardial infarction; I10 Essential (primary) hypertension; E10.9 Type 1 diabetes mellitus without complications; Z88.5 Allergy status to narcotic agent; Z88.6 Allergy status to analgesic agent; Z91.040 Latex allergy status
CPT/HCPCS: 99283

== ENCOUNTER 2016-12-29 10:20 | Emergency (ER) | payer MEDICARE, OTHER ==
[2016-12-29] MEDS ORDERED: ASPIRIN 81 MG TABLET, CHEWABLE PO ONE (10:33)
--- NOTE | 2016-12-29 10:35 | ER Document Report ---
ED Medical Screen (RME) - General Chief Complaint: Chest Pain Stated Complaint: CHEST PAIN Time Seen by Provider: 12/29/16 10:31 Mode of Arrival: Wheelchair Information source: Patient TRAVEL OUTSIDE OF THE [place] IN LAST 30 DAYS: No - HPI Patient complains to provider of: Chest pain Notes: 12/29/16 10:34 Patient is a 61-year-old male with significant cardiac history, presenting to the emergency room today complaining of left-sided chest pain that started approximately an hour and a half prior to arrival in the emergency room, he reports associated diaphoresis and shortness of breath - Related Data Allergies/Adverse Reactions: acetaminophen [From Percocet] Allergy (Verified 11/27/16 05:21) latex [Latex] Allergy (Verified 11/27/16 05:21) oxycodone [From Percocet] Allergy (Verified 11/27/16 05:21) adhesive tape [Adhesive Tape] Adverse Reaction (Verified 11/27/16 05:21) Past Medical History - Past Medical History Cardiac Medical History: Reports: Hx Congestive Heart Failure, Hx Coronary Artery Disease, Hx Heart Attack - x14, Hx Hypercholesterolemia, Hx Hypertension Pulmonary Medical History: Reports: Hx Pneumonia Endocrine Medical History: Reports: Hx Diabetes Mellitus Type 2 Renal/ Medical History: Denies: Hx Peritoneal Dialysis Psychiatric Medical History: Denies: Hx Depression Past Surgical History: Reports: Hx Cardiac Catheterization, Hx Cardiac Surgery - CABG, Hx Coronary Artery Bypass Graft - 3 vessel CABG, Hx Coronary Stent - 5 angioplasties, last 2 stents placed on05/25/, Hx Vascular Surgery - stent in LLE - Immunizations Hx Diphtheria, Pertussis, Tetanus Vaccination: Yes Physical Exam - Vital signs Vitals: Temp Pulse Resp BP Pulse Ox 98.0 F 80 16 130/78 H 93 12/29/16 10:22 12/29/16 10:22 12/29/16 10:22 12/29/16 10:22 12/29/16 10:22 Course - Vital Signs Vital signs: Temp Pulse Resp BP Pulse Ox 98.0 F 80 16 130/78 H 93 12/29/16 10:22 12/29/16 10:22 12/29/16 10:22 12/29/16 10:22 12/29/16 10:22
[2016-12-29 11:00] LABS: ABSOLUTE EOSINOPHILS # (AUTO) 0.1 10^3/uL (0.0-0.6); ABSOLUTE LYMPHOCYTES (AUTO) 0.7 10^3/uL (0.5-4.7); ABSOLUTE MONOCYTES (AUTO) 0.4 10^3/uL (0.1-1.4); ABSOLUTE NEUT (AUTO) 8.6 10^3/uL (1.7-8.2); BASOPHILS % (AUTO) 0.4 % (0-2); EOSINOPHILS % (AUTO) 0.7 % (0-6); HEMATOCRIT 48.3 % (37.9-51.0); HEMOGLOBIN 16.6 g/dL (13.5-17.0); HGB HCT DIFFERENCE 1.5; LYMPHOCYTES % (AUTO) 7.2 % (13-45); MEAN CORPUSCULAR HEMOGLOBIN 29.3 pg (27.0-33.4); MEAN CORPUSCULAR HGB CONC 34.3 g/dL (32.0-36.0); MEAN CORPUSCULAR VOLUME 85 fl (80-97); MONOCYTES % (AUTO) 4.4 % (3-13); RED BLOOD COUNT 5.65 10^6/uL (4.35-5.55); RED CELL DISTRIBUTION WIDTH 14.4 % (11.5-14.0); SEGMENTED NEUTROPHILS % (AUTO) 87.3 % (42-78); WHITE BLOOD COUNT 9.8 10^3/uL (4.0-10.5)
--- NOTE | 2016-12-29 11:12 | RADIOLOGY REPORT (SQ) ---
EXAM DESCRIPTION: CHEST PA/LAT COMPLETED DATE/TIME: 12/29/2016 10:54 am REASON FOR STUDY: cp COMPARISON: Chest films 06/20/2014, 11/10/2016, 11/22/2016 EXAM PARAMETERS: NUMBER OF VIEWS: two views TECHNIQUE: Digital Frontal and Lateral radiographic views of the chest acquired. RADIATION DOSE: NA LIMITATIONS: none FINDINGS: LUNGS AND PLEURA: No acute infiltrates. No pleural effusion. No pneumothorax. MEDIASTINUM AND HILAR STRUCTURES: No masses or contour abnormalities. HEART AND VASCULAR STRUCTURES: Mild cardiomegaly. Old sternotomy and CABG BONES: Osteoporotic. No acute findings HARDWARE: None in the chest. OTHER: No other significant finding. IMPRESSION: Old sternotomy and CABG with mild stable cardiomegaly. No acute changes TECHNICAL DOCUMENTATION: JOB ID: [id number] [employer]- All Rights Reserved
[2016-12-29 11:13] LABS: PROTHROMBIN TIME 13.2 SEC (11.4-15.4)
[2016-12-29 11:14] LABS: PARTIAL THROMBOPLASTIN TIME 28.6 SEC (23.5-35.8)
[2016-12-29 11:20] LABS: ALANINE AMINOTRANSFERASE 33 U/L (21-72); ALBUMIN 3.8 g/dL (3.5-5.0); ALKALINE PHOSPHATASE 128 U/L (38-126); ANION GAP 14 (5-19); ASPARTATE AMINO TRANSFERASE 28 U/L (17-59); BILIRUBIN,DIRECT 0.4 mg/dL (0.0-0.4); BLOOD UREA NITROGEN 9 mg/dL (7-20); CALCIUM 9.2 mg/dL (8.4-10.2); CARBON DIOXIDE 19 mmol/L (22-30); CHLORIDE 106 mmol/L (98-107); CREATINE KINASE 63 U/L (55-170); CREATININE RESULT 0.95 mg/dL (0.52-1.25); GLUCOSE 200 mg/dL (75-110); POTASSIUM 4.1 mmol/L (3.6-5.0); SODIUM 139.3 mmol/L (137-145); TOTAL PROTEIN 6.3 g/dL (6.3-8.2)
[2016-12-29] MEDS ORDERED: NITROGLYCERIN 2% OINTMENT 1 GM PACKET TP ONE (11:24)
--- NOTE | 2016-12-29 11:24 | ER Document Report ---
ED Cardiac - General Chief Complaint: Chest Pain Stated Complaint: CHEST PAIN Time Seen by Provider: 12/29/16 10:31 Mode of Arrival: Wheelchair Notes: 61-year-old male with past medical history of CABG 24 years ago according to patient's report with the last stent placed 2 years ago who presents today with the onset around 2 hours prior to arrival with some left-sided chest "pressure" radiating down his left arm. He states some nausea and diaphoresis. He denies any vomiting or any shortness of breath on my examination. He denies any calf pain or leg swelling. Patient states that he was seen and evaluated 2 at [facility] by his bicycle assembler during this last month with 2 different admissions. Patient states that he was told by his doctor that "nothing more could be done to my heart" and was given fentanyl patches for the pain. Patient states he has not taken the fentanyl patches since being discharged 2 weeks ago secondary to his concern "about what I read about them on line". Recent states his bicycle assembler is Dr. Mahoney at [place]. TRAVEL OUTSIDE OF THE [place] IN LAST 30 DAYS: No - HPI Patient complains to provider of: Chest pain Was the onset of pain: Gradual Is the pain a: Chronic problem Chest pain location: Substernal Quality of pain: Other - Unable to obtain secondary to patient's status Chest pain radiation location: Left arm Severity now: None Severity at worst: Moderate Pain level currently: Denies Cardiac risk factors: Hx NE Positive cardiac history: Yes Associated symptoms: Other - Unable to obtain secondary to patient's status Exacerbated by: Denies Relieved by: Nothing Similar symptoms previously: Yes - Related Data Allergies/Adverse Reactions: acetaminophen [From Percocet] Allergy (Verified 11/27/16 05:21) latex [Latex] Allergy (Verified 11/27/16 05:21) oxycodone [From Percocet] Allergy (Verified 11/27/16 05:21) adhesive tape [Adhesive Tape] Adverse Reaction (Verified 11/27/16 05:21) Past Medical History - General Information source: Patient - Social History Smoking Status: Former Smoker Cigarette use (# per day): No Chew tobacco use (# tins/day): No Frequency of alcohol use: None Drug Abuse: None Family History: CAD, DM, Hypertension - Past Medical History Cardiac Medical History: Reports: Hx Congestive Heart Failure, Hx Coronary Artery Disease, Hx Heart Attack - x14, Hx Hypercholesterolemia, Hx Hypertension Pulmonary Medical History: Reports: Hx Pneumonia Endocrine Medical History: Reports: Hx Diabetes Mellitus Type 2 Renal/ Medical History: Denies: Hx Peritoneal Dialysis Psychiatric Medical History: Denies: Hx Depression Past Surgical History: Reports: Hx Cardiac Catheterization, Hx Cardiac Surgery - CABG, Hx Coronary Artery Bypass Graft - 3 vessel CABG, Hx Coronary Stent - 5 angioplasties, last 2 stents placed on05/25/, Hx Vascular Surgery - stent in LLE - Immunizations Hx Diphtheria, Pertussis, Tetanus Vaccination: Yes Review of Systems - Review of Systems Constitutional: denies: Fever EENT: denies: Eye discharge, Nose discharge Respiratory: denies: Short of breath Gastrointestinal: denies: Vomiting Genitourinary: denies: Dysuria Musculoskeletal: denies: Leg swelling Skin: Other - no hives. denies: Rash Neurological/Psychological: Other - no slurred speech -: Yes All other systems reviewed and negative Physical Exam - Vital signs Vitals: Temp Pulse Resp BP Pulse Ox 98.0 F 80 16 130/78 H 93 12/29/16 10:22 12/29/16 10:22 12/29/16 10:22 12/29/16 10:22 12/29/16 10:22 Notes: Reviewed vital signs and nursing note as charted by RN. CONSTITUTIONAL: Alert and oriented and responds appropriately to questions. Well -appearing; well-nourished HEAD: Normocephalic; atraumatic CARD: Regular rate and rhythm; no murmurs, no clicks, no rubs, no gallops; symmetric distal pulses RESP: Normal chest excursion without splinting or tachypnea; breath sounds clear and equal bilaterally; no wheezes, no rhonchi, no rales ABD/GI: Normal bowel sounds; non-distended; soft, non-tender, no rebound, no guarding; no palpable organomegaly or masses BACK: The back appears normal and is non-tender to palpation, there is no CVA tenderness EXT: Normal ROM in all joints; non-tender to palpation; no cyanosis, no effusions, no edema SKIN: Normal color for age and race; warm; dry; good turgor; capillary refill < 2 seconds; no acute lesions noted NEURO: Moves all extremities equally; Motor and sensory function intact PSYCH: The patient's mood and manner are appropriate. Grooming and personal hygiene are appropriate. Course - Re-evaluation Re-evalutation: 12/29/16 11:23 Given the history and physical examination we will provide nitroglycerin paste, obtain a cardiac panel, x-ray, and EKG. Patient states he has taken his Plavix and aspirin today. Patient denies any active pain on my examination. When the initial set of cardiac enzymes have returned, I will consult the patient's bicycle assembler in [place]. I do believe the risk of pulmonary embolism and aortic dissection given the history and physical to be extremely low at this time. EKG shows a heart rate of 87, normal sinus rhythm, normal axis, ectopic atrial rhythm, no obvious ST elevation. Poor R-wave progression. Inverted T waves in leads V5 and V6. Flattening T waves in leads I and aVL. Old EKG from November 22, 2016 has been reviewed showing no obvious appreciable change. Chest x-ray mild cardiomegaly with old sternotomy wires, normal mediastinum, no fractures, normal lung brumfield, no pneumothorax. 12/29/16 12:18 Troponin as recorded. No active chest pain. I have called [place] to speak to the bicycle assembler. 12/29/16 12:55 Patient is currently chest pain-free. Troponin as recorded. I have called and spoken to the [place] fellow, Dr. Clemente. He has reviewed the patient's previous admission and it appears the patient troponin levels were within normal limits at that time. He has accepted transfer of the patient under the service of Dr. Bialey. - Vital Signs Vital signs: Temp Pulse Resp BP Pulse Ox 98.0 F 80 16 130/78 H 93 12/29/16 10:22 12/29/16 10:22 12/29/16 10:22 12/29/16 10:22 12/29/16 10:22 - Laboratory Result Diagrams: 12/29/16 10:43 12/29/16 10:43 Laboratory results interpreted by me: 12/29/16 12/29/16 10:43 10:43 RBC 5.65 H RDW 14.4 H Seg Neutrophils % 87.3 H Lymphocytes % 7.2 L Absolute Neutrophils 8.6 H Carbon Dioxide 19 L Glucose 200 H Alkaline Phosphatase 128 H Critical Care Note - Critical Care Note Total time excluding time spent on procedures (mins): 35 Discharge - Discharge Clinical Impression: NSTEMI (non-ST elevated myocardial infarction) Condition: Fair Disposition: [facility] Referrals: ELPIDIO VEGA PA-C [Primary Care Provider] - Follow up as needed
[2016-12-29 11:32] LABS: CREATINE KINASE MB 1.76 ng/mL (<4.55)
[2016-12-29 11:45] LABS: TROPONIN I 0.127 ng/mL
[2016-12-29] MEDS ORDERED: ENOXAPARIN SODIUM INJ 80 MG/0.8 ML DISP.SYRIN SUBCUT SCH (13:00)
[2016-12-29 15:36] LABS: PROTHROMBIN TIME 13.8 SEC (11.4-15.4)
[2016-12-29 15:37] LABS: PARTIAL THROMBOPLASTIN TIME 33.2 SEC (23.5-35.8)
--- NOTE | 2016-12-29 17:26 | EKG REPORT ---
SEVERITY:- ABNORMAL ECG - SINUS OR ECTOPIC ATRIAL RHYTHM PROBABLE INFERIOR INFARCT, AGE INDETERMINATE LATERAL LEADS ARE ALSO INVOLVED : Confirmed by: Tunde Odonnell MD 29-Dec-2016 17:25:59
[2016-12-29 18:28] VITALS: BP 135/80
== END 2016-12-29 18:28 | disposition short-term general hospital (02) ==
LOC: EEVIPCON 10:20 → ER 10:20
DX: I21.4 Non-ST elevation (NSTEMI) myocardial infarction (principal); R07.89 Other chest pain; R61 Generalized hyperhidrosis; R11.0 Nausea; I51.7 Cardiomegaly; I25.10 Atherosclerotic heart disease of native coronary artery without angina pectoris; I25.2 Old myocardial infarction; I10 Essential (primary) hypertension; E11.9 Type 2 diabetes mellitus without complications; Z95.1 Presence of aortocoronary bypass graft; Z95.5 Presence of coronary angioplasty implant and graft; Z88.5 Allergy status to narcotic agent; Z91.040 Latex allergy status; Z87.891 Personal history of nicotine dependence; Z82.49 Family history of ischemic heart disease and other diseases of the circulatory system; Z79.02 Long term (current) use of antithrombotics/antiplatelets; Z79.82 Long term (current) use of aspirin
CPT/HCPCS: 93005; 99291; 96372; 36415; 82553; 82550; 85025; 85610; 85730; 80053; 84484; 71020; 93010; J1650

== ENCOUNTER 2017-03-26 02:49 | Emergency (ER) | payer MEDICARE, OTHER ==
[2017-03-26] MEDS ORDERED: ACETAMINOPHEN WITH CODEINE #3 TABLET PO ONE (03:59)
[2017-03-26] MEDS ORDERED: ONDANSETRON 4 MG TAB.RAPDIS PO ONE (03:59)
--- NOTE | 2017-03-26 03:59 | ER Document Report ---
ED Flu Like - General Mode of Arrival: Ambulatory Information source: Patient TRAVEL OUTSIDE OF THE [place] IN LAST 30 DAYS: No - HPI Patient complains to provider of: flu like symptoms Onset: Other - 5 days ago Associated symptoms: Other - see notes above - General Chief Complaint: Flu Symptoms Stated Complaint: FLU LIKE SYMPTOMS Time Seen by Provider: 03/26/17 03:34 Notes: 62 year old male with history of congestive heart failure presents to the ED complaining of shortness of breath, headache, cough, chills, sore throat, and nausea that started 5 days ago. Patient denies having a fever. Patient reports to taking 400 mg Gabapentin and flu medication at 2100 yesterday evening. Patient denies history of asthma or COPD. (ZOHAIB PEREIRA) - Related Data Allergies/Adverse Reactions: latex [Latex] Allergy (Verified 11/27/16 05:21) oxycodone [From Percocet] Allergy (Verified 11/27/16 05:21) adhesive tape [Adhesive Tape] Adverse Reaction (Verified 11/27/16 05:21) Past Medical History - General Information source: Patient - Social History Smoking Status: Never Smoker Family History: None, CAD, DM, Hypertension Patient has suicidal ideation: No Patient has homicidal ideation: No - Past Medical History Cardiac Medical History: Reports: Hx Congestive Heart Failure, Hx Coronary Artery Disease, Hx Heart Attack - x14, Hx Hypercholesterolemia, Hx Hypertension Pulmonary Medical History: Reports: Hx Pneumonia Endocrine Medical History: Reports: Hx Diabetes Mellitus Type 2 Renal/ Medical History: Denies: Hx Peritoneal Dialysis Psychiatric Medical History: Denies: Hx Depression Past Surgical History: Reports: Hx Cardiac Catheterization, Hx Cardiac Surgery - CABG, Hx Coronary Artery Bypass Graft - 3 vessel CABG, Hx Coronary Stent - 5 angioplasties, last 2 stents placed on, Hx Vascular Surgery - stent in LLE - Immunizations Hx Diphtheria, Pertussis, Tetanus Vaccination: Yes Review of Systems - Review of Systems Constitutional: See HPI, Chills. denies: Fever EENT: See HPI, Nose congestion, Throat pain Cardiovascular: No symptoms reported Respiratory: See HPI, Cough, Short of breath Gastrointestinal: See HPI, Nausea Genitourinary: No symptoms reported Male Genitourinary: No symptoms reported Musculoskeletal: No symptoms reported Skin: No symptoms reported Hematologic/Lymphatic: No symptoms reported Neurological/Psychological: See HPI, Headaches -: Yes All other systems reviewed and negative Physical Exam - General General appearance: Alert, Other - appears uncomfortable In distress: None - HEENT Head: Normocephalic, Atraumatic Eyes: Normal Conjunctiva: Injected - bilaterally Extraocular movements intact: Yes Pupils: PERRL Nasal: Other - congestion. No: Normal - Respiratory Respiratory status: No respiratory distress Breath sounds: Normal - Cardiovascular Rhythm: Regular Heart sounds: Normal auscultation - Abdominal Inspection: Normal - Back Back: Normal - Extremities General upper extremity: Normal inspection, Normal ROM General lower extremity: Normal inspection, Normal ROM - Neurological Neuro grossly intact: Yes Cognition: Normal Orientation: AAOx4 Los Coma Scale Eye Opening: Spontaneous Los Coma Scale Verbal: Oriented Los Coma Scale Motor: Obeys Commands Los Coma Scale Total: 15 Speech: Normal - Psychological Associated symptoms: Normal affect, Normal mood - Skin Skin Temperature: Warm Skin Moisture: Dry Skin Color: Normal - Vital signs Vitals: Temp Pulse Resp BP Pulse Ox 98.5 F 82 18 137/79 H 99 03/26/17 02:54 03/26/17 02:54 03/26/17 02:54 03/26/17 02:54 03/26/17 02:54 Course - Re-evaluation Re-evalutation: 03/26/17 07:50 Patient is a 62-year-old male who comes in with upper respiratory infection symptoms. Possible flu. Patient is afebrile. Patient feels better after Zofran and Tylenol with codeine. He will be given a prescription for such. Patient is not to use Sudafed or Afrin. He can use Coricidin as needed. Stable for discharge. Follow-up with PMD. Vitals are stable. No work of breathing. No evidence for pneumonia. Return if any worsening or concerning symptoms. Understands and agrees with plan. (ALVARO ZURITA) - Vital Signs Vital signs: Temp Pulse Resp BP Pulse Ox 98.5 F 66 16 120/61 96 03/26/17 06:10 03/26/17 06:10 03/26/17 06:10 03/26/17 06:10 03/26/17 06:10 Discharge - Discharge Clinical Impression: Flu-like symptoms Condition: Stable Disposition: HOME, SELF-CARE Instructions: Influenza ([facility]) Prescriptions: Ondansetron [Zofran Odt 4 mg Tablet] 1 tab PO Q6HP PRN #15 tab.rapdis PRN Reason: For Nausea/Vomiting Acetaminophen with Codeine [Tylenol with Codeine #3 Tablet] 1 tab PO BIDP PRN # 14 tab PRN Reason: Lidocaine HCl [Xylocaine 2% Viscous Soln 20 ml Udcup] 5 ml PO TIDP PRN #1 udc PRN Reason: Referrals: ELPIDIO VEGA PA-C [Primary Care Provider] - Follow up as needed Scribe Attestation: 03/26/17 07:51 I personally performed the services described in the documentation, reviewed and edited the documentation which was dictated to the scribe in my presence, and it accurately records my words and actions. (ALVARO ZURITA) Scribe Documentation - Scribe Written by Scribe:: Garret Mijares, 03/26/2017 [id number] acting as scribe for :: Juan Jose
[2017-03-26] MEDS ORDERED: LIDOCAINE 2% VISCOUS SOLN 20 ML UDCUP PO ONE (05:46)
[2017-03-26 06:11] VITALS: BP 120/61
== END 2017-03-26 06:12 | disposition home or self-care (01) ==
LOC: ER 02:49
DX: R06.02 Shortness of breath (principal); R51 Headache; R05 Cough; J02.9 Acute pharyngitis, unspecified; R11.0 Nausea; R68.83 Chills (without fever)
CPT/HCPCS: 99283; A9270 ×2; J3490; S0119

== ENCOUNTER 2017-04-25 03:32 | Emergency (ER) | payer MEDICARE, OTHER ==
[2017-04-25] MEDS ORDERED: NORMAL SALINE 1000 ML 1,000 ML IV ONE (03:59)
[2017-04-25 05:18] LABS: ABSOLUTE EOSINOPHILS # (AUTO) 0.2 10^3/uL (0.0-0.6); ABSOLUTE LYMPHOCYTES (AUTO) 2.1 10^3/uL (0.5-4.7); ABSOLUTE MONOCYTES (AUTO) 0.6 10^3/uL (0.1-1.4); ABSOLUTE NEUT (AUTO) 3.5 10^3/uL (1.7-8.2); BASOPHILS % (AUTO) 0.7 % (0-2); EOSINOPHILS % (AUTO) 2.7 % (0-6); HEMATOCRIT 47.7 % (37.9-51.0); HEMOGLOBIN 16.1 g/dL (13.5-17.0); MEAN CORPUSCULAR HGB CONC 33.8 g/dL (32.0-36.0); MEAN CORPUSCULAR VOLUME 89 fl (80-97); MONOCYTES % (AUTO) 8.9 % (3-13); PLATELET COUNT 161 10^3/uL (150-450); RED BLOOD COUNT 5.36 10^6/uL (4.35-5.55); RED CELL DISTRIBUTION WIDTH 15.1 % (11.5-14.0); SEGMENTED NEUTROPHILS % (AUTO) 54.7 % (42-78); TOTAL CELLS COUNTED % (AUTO) 100 %; WHITE BLOOD COUNT 6.4 10^3/uL (4.0-10.5)
[2017-04-25 05:24] LABS: APPEARANCE,URINE CLEAR; BILIRUBIN,URINE NEGATIVE (NEGATIVE); COLOR,URINE YELLOW; GLUCOSE, URINE >=500 mg/dL (NEGATIVE); KETONES,URINE NEGATIVE (NEGATIVE); LEUKOCYTE ESTERASE,URINE NEGATIVE (NEGATIVE); NITRITE,URINE NEGATIVE (NEGATIVE); PROTEIN,URINE NEGATIVE (NEGATIVE); URINE SPECIFIC GRAVITY 1.016; UROBILINOGEN,URINE NEGATIVE mg/dL (<2.0)
[2017-04-25 05:28] LABS: ALANINE AMINOTRANSFERASE 233 U/L (21-72); ALBUMIN 3.1 g/dL (3.5-5.0); ALKALINE PHOSPHATASE 179 U/L (38-126); ANION GAP 9 (5-19); ASPARTATE AMINO TRANSFERASE 41 U/L (17-59); BILIRUBIN,DIRECT 0.7 mg/dL (0.0-0.4); BLOOD UREA NITROGEN 7 mg/dL (7-20); CALCIUM 8.8 mg/dL (8.4-10.2); CARBON DIOXIDE 26 mmol/L (22-30); CHLORIDE 104 mmol/L (98-107); GLUCOSE 270 mg/dL (75-110); SODIUM 138.8 mmol/L (137-145); TOTAL PROTEIN 5.5 g/dL (6.3-8.2)
--- NOTE | 2017-04-25 08:35 | ER Document Report ---
ED General - General Chief Complaint: High Blood Sugar Stated Complaint: ELEVATED BLOOD SUGAR Time Seen by Provider: 04/25/17 08:21 TRAVEL OUTSIDE OF THE [place] IN LAST 30 DAYS: No - HPI Patient complains to provider of: Elevated blood sugar Notes: Patient coming in for evaluation of elevated blood sugar. Patient states not prior to arrival as he did have pain about an jelly with crackers. Patient states he took his blood sugar just prior to going to bed and was elevated over 300. Patient states his blood sugars never that high therefore came to the ER for further evaluation. Patient denies any nausea vomiting diarrhea. Patient was currently upon my evaluation states compliance with his insulin. Patient states his last hemoglobin A1c was approximately 6.5-7. - Related Data Allergies/Adverse Reactions: latex [Latex] Allergy (Verified 11/27/16 05:21) oxycodone [From Percocet] Allergy (Verified 11/27/16 05:21) adhesive tape [Adhesive Tape] Adverse Reaction (Verified 11/27/16 05:21) Past Medical History - Social History Smoking Status: Never Smoker Chew tobacco use (# tins/day): No Frequency of alcohol use: None Drug Abuse: None Family History: None, CAD, DM, Hypertension Patient has suicidal ideation: No Patient has homicidal ideation: No - Past Medical History Cardiac Medical History: Reports: Hx Congestive Heart Failure, Hx Coronary Artery Disease, Hx Heart Attack - x14, Hx Hypercholesterolemia, Hx Hypertension Pulmonary Medical History: Reports: Hx Pneumonia Endocrine Medical History: Reports: Hx Diabetes Mellitus Type 2 Renal/ Medical History: Denies: Hx Peritoneal Dialysis Psychiatric Medical History: Denies: Hx Depression Past Surgical History: Reports: Hx Cardiac Catheterization - stents X3, Hx Cardiac Surgery - CABG, Hx Coronary Artery Bypass Graft - 3 vessel CABG, Hx Coronary Stent - 5 angioplasties, last 2 stents placed on05/25/, Hx Vascular Surgery - stent in LLE - Immunizations Hx Diphtheria, Pertussis, Tetanus Vaccination: Yes Review of Systems - Review of Systems Constitutional: Other - Hyperglycemia EENT: No symptoms reported Cardiovascular: No symptoms reported Respiratory: No symptoms reported Gastrointestinal: No symptoms reported Genitourinary: No symptoms reported Male Genitourinary: No symptoms reported Musculoskeletal: No symptoms reported Skin: No symptoms reported Hematologic/Lymphatic: No symptoms reported Neurological/Psychological: No symptoms reported -: Yes All other systems reviewed and negative Physical Exam - Vital signs Vitals: Resp Pulse Ox 19 99 04/25/17 08:17 04/25/17 08:17 Interpretation: Normal - General General appearance: Appears well, Alert - HEENT Head: Normocephalic, Atraumatic Eyes: Normal Pupils: PERRL - Respiratory Respiratory status: No respiratory distress Chest status: Nontender Breath sounds: Normal Chest palpation: Normal - Cardiovascular Rhythm: Regular Heart sounds: Normal auscultation Murmur: No - Abdominal Inspection: Normal Distension: No distension Bowel sounds: Normal Tenderness: Nontender Organomegaly: No organomegaly - Back Back: Normal, Nontender - Extremities General upper extremity: Normal inspection, Nontender, Normal color, Normal ROM , Normal temperature General lower extremity: Normal inspection, Nontender, Normal color, Normal ROM , Normal temperature, Normal weight bearing. No: James's sign - Neurological Neuro grossly intact: Yes Cognition: Normal Orientation: AAOx4 [place] Coma Scale Eye Opening: Spontaneous [place] Coma Scale Verbal: Oriented [place] Coma Scale Motor: Obeys Commands Los Coma Scale Total: 15 Speech: Normal Motor strength normal: LUE, RUE, LLE, RLE Sensory: Normal - Psychological Associated symptoms: Normal affect, Normal mood - Skin Skin Temperature: Warm Skin Moisture: Dry Skin Color: Normal Course - Re-evaluation Re-evalutation: 04/25/17 15:28 Patient coming in for elevated blood sugars. No signs of HHS or DKA. Patient is to continue his home medication patient will be discharged home. - Vital Signs Vital signs: Temp Pulse Resp BP Pulse Ox 98.1 F 14 148/88 H 98 04/25/17 09:54 04/25/17 09:54 04/25/17 09:54 04/25/17 09:54 - Laboratory Result Diagrams: 04/25/17 04:56 04/25/17 04:56 Laboratory results interpreted by me: 04/25/17 04/25/17 04/25/17 04:56 04:56 04:56 RDW 15.1 H Glucose 270 H POC Glucose Direct Bilirubin 0.7 H ALT 233 H Alkaline Phosphatase 179 H Total Protein 5.5 L Albumin 3.1 L Urine Glucose (UA) >=500 H 04/25/17 04/25/17 05:20 09:57 RDW Glucose POC Glucose 242 H 224 H Direct Bilirubin ALT Alkaline Phosphatase Total Protein Albumin Urine Glucose (UA) Discharge - Discharge Clinical Impression: Hyperglycemia Condition: Stable Disposition: HOME, SELF-CARE Instructions: Hyperglycemia ([facility]) Additional Instructions: Follow-up with your primary care physician. Please continue to watch her diet. At this time your laboratory studies not show any complications for having elevated blood sugar last night. Do believe your blood sugar more likely elevated from the peanut butter and jelly that she ate prior to taking it. Return to ER for any complications or concerns. Referrals: ELPIDIO VEGA PA-C [Primary Care Provider] - Follow up as needed
[2017-04-25 10:02] VITALS: BP 148/88
== END 2017-04-25 10:13 | disposition home or self-care (01) ==
LOC: ER 03:32
DX: E11.65 Type 2 diabetes mellitus with hyperglycemia (principal); Z79.4 Long term (current) use of insulin; I25.10 Atherosclerotic heart disease of native coronary artery without angina pectoris; I25.2 Old myocardial infarction; I10 Essential (primary) hypertension; E11.9 Type 2 diabetes mellitus without complications; Z91.040 Latex allergy status; Z88.5 Allergy status to narcotic agent; Z95.5 Presence of coronary angioplasty implant and graft; Z95.1 Presence of aortocoronary bypass graft
CPT/HCPCS: 99285; 36415; 82962; 85025; 80053; 81001; J7030

== ENCOUNTER 2017-05-02 21:17 | Emergency (ER) | payer MEDICARE, OTHER ==
[2017-05-02 22:44] LABS: APPEARANCE,URINE CLEAR; BILIRUBIN,URINE NEGATIVE (NEGATIVE); COLOR,URINE YELLOW; GLUCOSE, URINE >=500 mg/dL (NEGATIVE); KETONES,URINE NEGATIVE (NEGATIVE); LEUKOCYTE ESTERASE,URINE NEGATIVE (NEGATIVE); NITRITE,URINE NEGATIVE (NEGATIVE); PROTEIN,URINE NEGATIVE (NEGATIVE); URINE SPECIFIC GRAVITY 1.024
[2017-05-03 00:19] LABS: ABSOLUTE BASOPHILS # (AUTO) 0.1 10^3/uL (0.0-0.2); ABSOLUTE EOSINOPHILS # (AUTO) 0.2 10^3/uL (0.0-0.6); ABSOLUTE LYMPHOCYTES (AUTO) 2.2 10^3/uL (0.5-4.7); ABSOLUTE NEUT (AUTO) 4.4 10^3/uL (1.7-8.2); EOSINOPHILS % (AUTO) 2.6 % (0-6); HEMATOCRIT 49.9 % (37.9-51.0); HEMOGLOBIN 16.9 g/dL (13.5-17.0); LYMPHOCYTES % (AUTO) 28.6 % (13-45); MEAN CORPUSCULAR HGB CONC 33.9 g/dL (32.0-36.0); MEAN CORPUSCULAR VOLUME 88 fl (80-97); MONOCYTES % (AUTO) 12.1 % (3-13); PLATELET COUNT 189 10^3/uL (150-450); RED BLOOD COUNT 5.65 10^6/uL (4.35-5.55); RED CELL DISTRIBUTION WIDTH 14.9 % (11.5-14.0); SEGMENTED NEUTROPHILS % (AUTO) 55.7 % (42-78); TOTAL CELLS COUNTED % (AUTO) 100 %; WHITE BLOOD COUNT 7.9 10^3/uL (4.0-10.5)
[2017-05-03] MEDS ORDERED: NORMAL SALINE 1000 ML 1,000 ML IV ONE (00:32)
[2017-05-03 00:33] LABS: ANION GAP 10 (5-19); BLOOD UREA NITROGEN 16 mg/dL (7-20); CALCIUM 9.3 mg/dL (8.4-10.2); CARBON DIOXIDE 22 mmol/L (22-30); CHLORIDE 106 mmol/L (98-107); GLUCOSE 186 mg/dL (75-110); POTASSIUM 4.1 mmol/L (3.6-5.0); SODIUM 138.2 mmol/L (137-145)
--- NOTE | 2017-05-03 00:35 | ER Document Report ---
ED General - General Chief Complaint: Flu Symptoms Stated Complaint: FLU SYMPTOMS Time Seen by Provider: 05/02/17 23:52 Notes: Patient is a 62-year-old male with a past medical history of insulin-dependent type 2 diabetes, hypertension, who presents with 24 hours of cough, sore throat , body aches, and hyperglycemia. Patient states that he has been checking his blood sugars at home and noticed that they continue to be elevated above 300 on a regular basis. He states that he continues to take his insulin as prescribed but that despite this his sugars remain elevated. Nothing worsens his symptoms and he denies dietary indiscretions. This prompted him come to the emergency department. In regards to his respiratory symptoms and sore throat he reports that these have been gradually worsening over the last 24 hours. He denies any recorded fevers, vomiting or diarrhea. Denies any syncope or chest pain. He has not seen his primary care doctor regarding today's concerns. TRAVEL OUTSIDE OF THE [place] IN LAST 30 DAYS: No - Related Data Allergies/Adverse Reactions: latex [Latex] Allergy (Verified 11/27/16 05:21) oxycodone [From Percocet] Allergy (Verified 11/27/16 05:21) adhesive tape [Adhesive Tape] Adverse Reaction (Verified 11/27/16 05:21) Past Medical History - General Information source: Patient, Relative - Social History Smoking Status: Never Smoker Chew tobacco use (# tins/day): Yes Frequency of alcohol use: None Drug Abuse: None Lives with: Spouse/Significant other Family History: CAD, DM, Hypertension Patient has suicidal ideation: No Patient has homicidal ideation: No - Past Medical History Cardiac Medical History: Reports: Hx Congestive Heart Failure, Hx Coronary Artery Disease, Hx Heart Attack - x14, Hx Hypercholesterolemia, Hx Hypertension Pulmonary Medical History: Reports: Hx Pneumonia Endocrine Medical History: Reports: Hx Diabetes Mellitus Type 2 Renal/ Medical History: Denies: Hx Peritoneal Dialysis Psychiatric Medical History: Denies: Hx Depression Past Surgical History: Reports: Hx Cardiac Catheterization - stents X3, Hx Cardiac Surgery - CABG, Hx Coronary Artery Bypass Graft - 3 vessel CABG, Hx Coronary Stent - 5 angioplasties, last 2 stents placed on05/25/, Hx Vascular Surgery - stent in LLE - Immunizations Hx Diphtheria, Pertussis, Tetanus Vaccination: Yes Review of Systems - Review of Systems Notes: Constitutional: Negative for fever. HENT: Positive for sore throat. Eyes: Negative for visual changes. Cardiovascular: Negative for chest pain. Respiratory: Negative for shortness of breath. Positive for cough Gastrointestinal: Negative for abdominal pain, vomiting or diarrhea. Genitourinary: Negative for dysuria. Musculoskeletal: Negative for back pain. Skin: Negative for rash. Neurological: Negative for headaches, weakness or numbness. 10 point ROS negative except as marked above and in HPI. Physical Exam - Vital signs Vitals: Temp Pulse Resp BP Pulse Ox 98.6 F 88 14 132/78 H 98 05/02/17 22:04 05/02/17 22:04 05/02/17 22:04 05/02/17 22:04 05/02/17 22:04 Interpretation: Normal Notes: PHYSICAL EXAMINATION: GENERAL: Well-appearing, well-nourished and in no acute distress. HEAD: Atraumatic, normocephalic. EYES: Pupils equal round and reactive to light, extraocular movements intact, sclera anicteric, conjunctiva are normal. ENT: nares patent, oropharynx clear without exudates. Moist mucous membranes. NECK: Normal range of motion, supple without lymphadenopathy LUNGS: Breath sounds clear to auscultation bilaterally and equal. No wheezes rales or rhonchi. HEART: Regular rate and rhythm without murmurs ABDOMEN: Soft, nontender, normoactive bowel sounds. No guarding, no rebound. No masses appreciated. EXTREMITIES: Normal range of motion, no pitting or edema. No cyanosis. NEUROLOGICAL: No focal neurological deficits. Moves all extremities spontaneously and on command. PSYCH: Normal mood, normal affect. SKIN: Warm, Dry, normal turgor, no rashes or lesions noted. Course - Re-evaluation Re-evalutation: 05/03/17 00:32 Patient presents with cough, nausea, feeling subjectively feverish, and elevated blood sugars. Clinical history is consistent with influenza or similar viral illness. Clinical history and exam is not consistent with an acute bacterial meningitis, encephalitis, pneumonia, there is no evidence of a cellulitis on examination. Patient likewise denies any urinary symptoms. Chest x-ray is clear without any evidence of an acute pneumonia. Urinalysis without any evidence of a pyelonephritis. Patient does not have any focal abdominal tenderness to suggest an acute biliary pathology, acute appendicitis, acute mesenteric ischemia, bowel obstruction, bowel, or any other life- threatening acute intra-abdominal pathology as the etiology of the fever and additional symptoms today. Labs are otherwise unremarkable. Patient is tolerated oral intake without difficulty. Vitals at time of reassessment are within normal limits. At this time will discharge with return precautions and follow-up recommendations. Verbal discharge instructions given a the bedside and opportunity for questions given. Medication warnings reviewed. Patient is in agreement with this plan and has verbalized understanding of return precautions and the need for primary care follow-up in the next 24-72 hours. - Vital Signs Vital signs: Temp Pulse Resp BP Pulse Ox 98.1 F 70 19 122/58 L 95 05/03/17 01:50 05/03/17 01:50 05/03/17 01:50 05/03/17 01:50 05/03/17 01:50 - Laboratory Result Diagrams: 05/03/17 00:05 05/03/17 00:05 Laboratory results interpreted by me: 05/02/17 05/03/17 05/03/17 22:00 00:05 00:05 RBC 5.65 H RDW 14.9 H Glucose 186 H POC Glucose Urine Glucose (UA) >=500 H Urine Urobilinogen 2.0 H 05/03/17 00:09 RBC RDW Glucose POC Glucose 195 H Urine Glucose (UA) Urine Urobilinogen - Diagnostic Test Radiology reviewed: Image reviewed, Reports reviewed Radiology results interpreted by me: 05/03/17 00:34 Chest x-ray: No acute infiltrate or pneumothorax Discharge - Discharge Clinical Impression: Hyperglycemia, Diabetes mellitus type 2 in obese, Viral upper respiratory infection Condition: Good Disposition: HOME, SELF-CARE Additional Instructions: Your symptoms are likely due to a viral infection either influenza or similar virus. The only treatment at this time is supportive care including drinking plenty of fluids, Tylenol and ibuprofen, as well as nausea medicines which you will be sent home with. Your symptoms will likely last for 7-10 days. Please return to the emergency department immediately if you become confused, have persistent vomiting, pass out, have severe headache, or have any other symptoms that are worrisome to you. Follow-up with your primary care doctor in the next several days. Referrals: ELPIDIO VEGA PA-C [Primary Care Provider] - Follow up as needed
--- NOTE | 2017-05-03 00:49 | RADIOLOGY REPORT (SQ) ---
EXAM DESCRIPTION: CHEST SINGLE VIEW CLINICAL HISTORY: 62 years, Male, fever, cough COMPARISON: None. NUMBER OF VIEWS: 1 LIMITATIONS: None. FINDINGS: Adequate lung volume, clear parenchyma, normal cardiac silhouette, median sternotomy, and intact bony thorax. IMPRESSION: No acute cardiopulmonary findings.
[2017-05-03] MEDS ORDERED: KETOROLAC TROMETHAMINE INJ/PF 30 MG/1 ML SDV IV ONE (01:41)
[2017-05-03 02:01] VITALS: BP 122/58
== END 2017-05-03 01:50 | disposition home or self-care (01) ==
LOC: ER 21:17
DX: E11.65 Type 2 diabetes mellitus with hyperglycemia (principal); J06.9 Acute upper respiratory infection, unspecified; B97.89 Other viral agents as the cause of diseases classified elsewhere; Z79.4 Long term (current) use of insulin; R05 Cough; R11.0 Nausea; I10 Essential (primary) hypertension; I25.10 Atherosclerotic heart disease of native coronary artery without angina pectoris; I25.2 Old myocardial infarction; E66.9 Obesity, unspecified; Z68.31 Body mass index [BMI] 31.0-31.9, adult; Z91.040 Latex allergy status; Z88.5 Allergy status to narcotic agent; Z95.5 Presence of coronary angioplasty implant and graft; Z95.1 Presence of aortocoronary bypass graft; Z87.01 Personal history of pneumonia (recurrent)
CPT/HCPCS: 99284; 96361; 96374; 36415; 82962; 85025; 80048; 81001; 71045; J1885; J7030

== ENCOUNTER 2017-08-27 01:37 | Emergency (ER) | payer OTHER ==
[2017-08-27 01:42] VITALS: BP 152/81
--- NOTE | 2017-08-27 02:47 | ER Document Report ---
ED Foreign Body - General Chief Complaint: Foreign Body in Ear Stated Complaint: FOREIGN OBJECT IN RIGHT EAR Time Seen by Provider: 08/27/17 02:37 TRAVEL OUTSIDE OF THE [place] IN LAST 30 DAYS: No - HPI Patient complains to provider of: COTTON-TIPPED SWAB BROKEN OFF IN RIGHT EAR Location of foreign body: Other - R. EAR Onset: Just prior to arrival Onset/Duration: Sudden Quality of pain: Other - FB SENSATION Associated symptoms: None Exacerbated by: Denies Relieved by: Denies Similar symptoms previously: Yes Recently seen / treated by doctor: No - Related Data Allergies/Adverse Reactions: latex [Latex] Allergy (Verified 11/27/16 05:21) oxycodone [From Percocet] Allergy (Verified 11/27/16 05:21) adhesive tape [Adhesive Tape] Adverse Reaction (Verified 11/27/16 05:21) Past Medical History - General Information source: Patient - Social History Smoking Status: Unknown if Ever Smoked Cigarette use (# per day): No Chew tobacco use (# tins/day): No Frequency of alcohol use: Occasional Drug Abuse: None Lives with: Spouse/Significant other Family History: CAD, DM, Hypertension Patient has suicidal ideation: No Patient has homicidal ideation: No - Past Medical History Cardiac Medical History: Reports: Hx Congestive Heart Failure, Hx Coronary Artery Disease, Hx Heart Attack - x14, Hx Hypercholesterolemia, Hx Hypertension Pulmonary Medical History: Reports: Hx Pneumonia Endocrine Medical History: Reports: Hx Diabetes Mellitus Type 2 Renal/ Medical History: Denies: Hx Peritoneal Dialysis Psychiatric Medical History: Denies: Hx Depression Past Surgical History: Reports: Hx Cardiac Catheterization - stents X3, Hx Cardiac Surgery - CABG, Hx Coronary Artery Bypass Graft - 3 vessel CABG, Hx Coronary Stent - 5 angioplasties, last 2 stents placed on05/25/, Hx Vascular Surgery - stent in LLE - Immunizations Hx Diphtheria, Pertussis, Tetanus Vaccination: Yes Review of Systems - Review of Systems Constitutional: No symptoms reported EENT: See HPI Cardiovascular: No symptoms reported Respiratory: No symptoms reported Gastrointestinal: No symptoms reported Physical Exam - Vital signs Vitals: Temp Pulse Resp BP Pulse Ox 98.1 F 75 17 152/81 H 97 08/27/17 01:40 08/27/17 01:40 08/27/17 01:40 08/27/17 01:40 08/27/17 01:40 Interpretation: Hypertensive - General General appearance: Appears well, Alert In distress: None - HEENT Head: Normocephalic Eyes: Normal Ears: Normal External canal: Normal, Erythema - MILD, Other - NO FOREIGN BODY VISIBLE IN RIGHT EAR CANAL. No: Blood in canal, Foreign body Tympanic membrane: Normal Nasal: Normal Mouth/Lips: Normal Mucous membranes: Normal - Respiratory Respiratory status: No respiratory distress - Cardiovascular Rhythm: Regular - Abdominal Inspection: Normal Distension: No distension - Extremities General upper extremity: Normal inspection General lower extremity: Normal inspection - Neurological Neuro grossly intact: Yes Cognition: Normal Orientation: AAOx4 - Psychological Associated symptoms: Normal affect, Normal mood - Skin Skin Temperature: Warm Skin Moisture: Dry Skin Color: Normal Skin Turgor: Elastic Course - Vital Signs Vital signs: Temp Pulse Resp BP Pulse Ox 98.1 F 75 17 152/81 H 97 08/27/17 01:40 08/27/17 01:40 08/27/17 01:40 08/27/17 01:40 08/27/17 01:40 Discharge - Discharge Clinical Impression: Ear canal abrasion Qualifiers: Encounter type: initial encounter Laterality: right Qualified Code(s): S00.411A - Abrasion of right ear, initial encounter Condition: Stable Disposition: HOME, SELF-CARE Additional Instructions: AVOID STICKING ANYTHING INTO YOUR EAR CANAL. FOLLOW UP WITH YOUR PRIMARY CARE PROVIDER OR RETURN TO E.R. IF PROBLEMS. Referrals: ELPIDIO VEGA PA-C [Primary Care Provider] - Follow up as needed
== END 2017-08-27 03:06 | disposition home or self-care (01) ==
LOC: ER 01:37
DX: S00.411A Abrasion of right ear, initial encounter (principal); X58.XXXA Exposure to other specified factors, initial encounter; Y93.E8 Activity, other personal hygiene; I50.9 Heart failure, unspecified; I25.10 Atherosclerotic heart disease of native coronary artery without angina pectoris; E78.00 Pure hypercholesterolemia, unspecified; I10 Essential (primary) hypertension; E11.9 Type 2 diabetes mellitus without complications; I25.2 Old myocardial infarction; Z95.1 Presence of aortocoronary bypass graft
CPT/HCPCS: 99282

== ENCOUNTER 2017-10-29 19:48 | Emergency (ER) | payer OTHER ==
--- NOTE | 2017-10-29 20:59 | ER Document Report ---
ED Medical Screen (RME) - General Chief Complaint: Blood sugar issues Stated Complaint: BLOOD SUGAR Time Seen by Provider: 10/29/17 20:51 Notes: 62-year-old male with a history of insulin-dependent diabetes with chief complaint of his blood sugars being consistently lower than usual. Sometimes down to the 60s, he states that he eats a lot more than usual and his sugars are still lower than usual. He denies dizziness or passing out, denies nausea or vomiting. He does admit to chest pains but states this is no different than the chest pain that he always has, has had multiple MIs. He also admits to increased sleepiness, intermittent sweating, and over 30 pound weight loss over 2 weeks. He states he is eating more not less, not trying to lose weight. No past medical history of cancer. TRAVEL OUTSIDE OF THE [place] IN LAST 30 DAYS: No - Related Data Allergies/Adverse Reactions: latex [Latex] Allergy (Verified 11/27/16 05:21) oxycodone [From Percocet] Allergy (Verified 11/27/16 05:21) adhesive tape [Adhesive Tape] Adverse Reaction (Verified 11/27/16 05:21) Past Medical History - Past Medical History Cardiac Medical History: Reports: Hx Congestive Heart Failure, Hx Coronary Artery Disease, Hx Heart Attack - x14, Hx Hypercholesterolemia, Hx Hypertension Pulmonary Medical History: Reports: Hx Pneumonia Endocrine Medical History: Reports: Hx Diabetes Mellitus Type 2 Renal/ Medical History: Denies: Hx Peritoneal Dialysis Psychiatric Medical History: Denies: Hx Depression Past Surgical History: Reports: Hx Cardiac Catheterization - stents X3, Hx Cardiac Surgery - CABG, Hx Coronary Artery Bypass Graft - 3 vessel CABG, Hx Coronary Stent - 5 angioplasties, last 2 stents placed on05/25/, Hx Vascular Surgery - stent in LLE - Immunizations Hx Diphtheria, Pertussis, Tetanus Vaccination: Yes Physical Exam - Vital signs Vitals: Temp Pulse Resp BP Pulse Ox 98.9 F 64 16 126/75 H 97 10/29/17 20:13 10/29/17 20:13 10/29/17 20:13 10/29/17 20:13 10/29/17 20:13 - General General appearance: Appears well In distress: None - Respiratory Respiratory status: No respiratory distress Breath sounds: Normal - Cardiovascular Rhythm: Regular. No: Tachycardia Heart sounds: Normal auscultation, S1 appreciated, S2 appreciated Course - Re-evaluation Re-evalutation: No concerning hypoglycemia but will evaluate for patient's variety of developing symptoms - Vital Signs Vital signs: Temp Pulse Resp BP Pulse Ox 98.9 F 64 16 126/75 H 97 10/29/17 20:13 10/29/17 20:13 10/29/17 20:13 10/29/17 20:13 10/29/17 20:13 Doctor's Discharge - Discharge Referrals: ELPIDIO VEGA PA-C [Primary Care Provider] - Follow up as needed
[2017-10-29 21:32] LABS: ABSOLUTE EOSINOPHILS # (AUTO) 0.3 10^3/uL (0.0-0.6); ABSOLUTE LYMPHOCYTES (AUTO) 1.6 10^3/uL (0.5-4.7); ABSOLUTE MONOCYTES (AUTO) 0.6 10^3/uL (0.1-1.4); ABSOLUTE NEUT (AUTO) 4.9 10^3/uL (1.7-8.2); BASOPHILS % (AUTO) 0.6 % (0-2); EOSINOPHILS % (AUTO) 3.6 % (0-6); HEMOGLOBIN 18.9 g/dL (13.5-17.0); MEAN CORPUSCULAR HEMOGLOBIN 31.2 pg (27.0-33.4); MEAN CORPUSCULAR HGB CONC 35.6 g/dL (32.0-36.0); MEAN CORPUSCULAR VOLUME 88 fl (80-97); MONOCYTES % (AUTO) 7.4 % (3-13); PLATELET COUNT 268 10^3/uL (150-450); RED BLOOD COUNT 6.04 10^6/uL (4.35-5.55); RED CELL DISTRIBUTION WIDTH 13.8 % (11.5-14.0); SEGMENTED NEUTROPHILS % (AUTO) 66.4 % (42-78); TOTAL CELLS COUNTED % (AUTO) 100 %; WHITE BLOOD COUNT 7.4 10^3/uL (4.0-10.5)
--- NOTE | 2017-10-29 21:50 | RADIOLOGY REPORT (SQ) ---
EXAM DESCRIPTION: CHEST SINGLE VIEW COMPLETED DATE/TIME: 10/29/2017 9:28 pm REASON FOR STUDY: chest pain COMPARISON: 12/29/2016 EXAM PARAMETERS: NUMBER OF VIEWS: One view. TECHNIQUE: Single frontal radiographic view of the chest acquired. RADIATION DOSE: NA LIMITATIONS: None. FINDINGS: LUNGS AND PLEURA: No opacities, masses or pneumothorax. No pleural effusion. MEDIASTINUM AND HILAR STRUCTURES: No masses. Contour normal. HEART AND VASCULAR STRUCTURES: Heart normal in size. Normal vasculature. BONES: No acute findings. HARDWARE: Sternotomy wires. Graft markers. Surgical clips. OTHER: No other significant finding. IMPRESSION: NO ACUTE RADIOGRAPHIC FINDING IN THE CHEST. TECHNICAL DOCUMENTATION: JOB ID: [id number] [employer]- All Rights Reserved Reading location - IP/workstation name: [email or web address]
--- NOTE | 2017-10-29 22:54 | ER Document Report ---
ED General - General Chief Complaint: Blood sugar issues Stated Complaint: BLOOD SUGAR Time Seen by Provider: 10/29/17 20:51 Notes: Patient is a 62-year-old male who presents with complaint of low blood sugar. He says he has felt somewhat fatigued with blood sugars been running low for last several days. He stopped taking since onset headaches and notes the sugar was going down as low as 68. He says his senior qa tester wants his blood sugar to be 140 or above so it does not drop too low overnight. Says he has been eating a lot. He has not gained any weight. He is actually lost some weight over last month. He denies any recent fevers or infections. No vomiting. No diarrhea. No abdominal pain. He does have chest pain which she says is chronic and unchanged from his baseline. He says is chronic angina. He denies any other complaints. He denies being on any other diabetes medications other than the insulin which he stopped a few days ago. TRAVEL OUTSIDE OF THE [place] IN LAST 30 DAYS: No - Related Data Allergies/Adverse Reactions: latex [Latex] Allergy (Verified 11/27/16 05:21) oxycodone [From Percocet] Allergy (Verified 11/27/16 05:21) adhesive tape [Adhesive Tape] Adverse Reaction (Verified 11/27/16 05:21) Past Medical History - Social History Smoking Status: Never Smoker Chew tobacco use (# tins/day): Yes Frequency of alcohol use: None Drug Abuse: None Family History: CAD, DM, Hypertension Patient has suicidal ideation: No Patient has homicidal ideation: No - Past Medical History Cardiac Medical History: Reports: Hx Congestive Heart Failure, Hx Coronary Artery Disease, Hx Heart Attack - x14, Hx Hypercholesterolemia, Hx Hypertension Pulmonary Medical History: Reports: Hx Pneumonia Endocrine Medical History: Reports: Hx Diabetes Mellitus Type 2 Renal/ Medical History: Denies: Hx Peritoneal Dialysis Psychiatric Medical History: Denies: Hx Depression Past Surgical History: Reports: Hx Cardiac Catheterization - stents X3, Hx Cardiac Surgery - CABG, Hx Coronary Artery Bypass Graft - 3 vessel CABG, Hx Coronary Stent - 5 angioplasties, last 2 stents placed on05/25/, Hx Vascular Surgery - stent in LLE - Immunizations Hx Diphtheria, Pertussis, Tetanus Vaccination: Yes Review of Systems - Review of Systems Notes: My Normal Review Basic REVIEW OF SYSTEMS: CONSTITUTIONAL : Denies fever, chills, or sweats. Denies recent illness. EENT: Denies eye, ear, throat, or mouth pain or symptoms. Denies nasal or sinus congestion. CARDIOVASCULAR: Chronic recurrent chest pain RESPIRATORY: Denies cough, cold, or chest congestion. Denies shortness of breath, difficulty breathing, or wheezing. GASTROINTESTINAL: Denies abdominal pain. Denies nausea, vomiting, or diarrhea. GENITOURINARY: Denies difficulty urinating, painful urination, burning, frequency, or blood in urine. MUSCULOSKELETAL: Denies neck or back pain or joint pain or swelling. SKIN: Denies rash or skin lesions. NEUROLOGICAL: Denies altered mental status or loss of consciousness. Denies headache. Denies weakness or paralysis or loss of use of either side. Denies problems with gait or speech. Denies sensory or motor loss. ALL OTHER SYSTEMS REVIEWED AND NEGATIVE. Physical Exam - Vital signs Vitals: Temp Pulse Resp BP Pulse Ox 98.9 F 64 16 126/75 H 97 10/29/17 20:13 10/29/17 20:13 10/29/17 20:13 10/29/17 20:13 10/29/17 20:13 - Notes Notes: General Appearance: Well nourished, alert, cooperative, no acute distress, no obvious discomfort. Well appearing. Vitals: reviewed, See vital signs table. Head: no swelling or tenderness to the head Eyes: PERRL, EOMI, Conjuctiva clear Mouth: No decreasd moisture Throat: No tonsillar inflammation, No airway obstruction, No lymphadenopathy Neck: Supple, no neck tenderness, No thyromegaly Lungs: No wheezing, No rales, No rhonci, No accessory muscle use, good air exchange bilaterally. Heart: Normal rate, Regular rythm, No murmur, no rub Abdomen: Normal BS, soft, No rigidity, No abdominal tenderness, No guarding, no rebound, no abdominal masses, no organomegaly Extremities: strength 5/5 in all extremities, good pulses in all extremities, no swelling or tenderness in the extremities, no edema. Skin: warm, dry, appropriate color, no rash Neuro: speech clear, oriented x 3, normal affect, responds appropriately to questions. Course - Re-evaluation Re-evalutation: 10/30/17 03:55 I suspect the most likely patient's low blood sugars could be related to the fact that is also much weight. I encouraged him to hold on his insulin unless his blood sugar starts running above 300. I encouraged him to call his senior qa tester to make a close follow-up appointment. His C-peptide was in normal range. Thyroid function panel is normal. I see no signs of infection. Patient otherwise is well-appearing. Encourage him return to ER if he has recurrent blood sugars below 70 despite eating. Patient agrees with plan will be discharged home. Dictation of this chart was performed using voice recognition software; therefore, there may be some unintended grammatical errors. - Vital Signs Vital signs: Temp Pulse Resp BP Pulse Ox 98.9 F 64 19 118/74 96 10/29/17 20:13 10/29/17 20:13 10/30/17 00:01 10/29/17 23:01 10/30/17 00:01 - Laboratory Result Diagrams: 10/29/17 21:18 10/29/17 22:48 Laboratory results interpreted by me: 10/29/17 10/29/17 10/29/17 21:18 22:09 22:48 RBC 6.04 H Hgb 18.9 H Hct 53.0 H Glucose 121 H POC Glucose 124 H AST 70 H ALT 87 H Creatine Kinase 36 L - EKG Interpretation by Me Additional EKG results interpreted by me: 10/29/17 23:09 EKG is reviewed and interpreted by me. EKG shows sinus rhythm with a rate of [address] segment elevation or depression. No ischemic T-wave inversions. LA interval slightly prolonged. QRS duration QTc intervals are within normal range. Old EKG for comparison is from December 29, 2016. Discharge - Discharge Clinical Impression: Hypoglycemia Condition: Good Disposition: HOME, SELF-CARE Additional Instructions: Please hold off on using your insulin until you follow up with your senior qa tester. It is okay to use your insulin again if your sugar is above 300. Please call your diabetes doctor this morning to make a close follow up appointment within the next few days. please return to the ER immediately if you blood sugar is routinely below 70 despite eating.
[2017-10-29 23:26] LABS: ALANINE AMINOTRANSFERASE 87 U/L (21-72); ALBUMIN 3.7 g/dL (3.5-5.0); ALKALINE PHOSPHATASE 126 U/L (38-126); ANION GAP 12 (5-19); ASPARTATE AMINO TRANSFERASE 70 U/L (17-59); BILIRUBIN,DIRECT 0.4 mg/dL (0.0-0.4); BILIRUBIN,TOTAL 1.2 mg/dL (0.2-1.3); BLOOD UREA NITROGEN 16 mg/dL (7-20); CALCIUM 9.1 mg/dL (8.4-10.2); CARBON DIOXIDE 28 mmol/L (22-30); CHLORIDE 103 mmol/L (98-107); CREATINE KINASE 36 U/L (55-170); GLUCOSE 121 mg/dL (75-110); POTASSIUM 4.3 mmol/L (3.6-5.0); SODIUM 143.3 mmol/L (137-145); TOTAL PROTEIN 6.8 g/dL (6.3-8.2)
[2017-10-29 23:41] LABS: FREE T4 (FREE THYROXINE) 1.24 ng/dL (0.78-2.19)
[2017-10-29 23:48] LABS: TROPONIN I < 0.012 ng/mL
[2017-10-29 23:55] LABS: THYROID STIMULATING HORMONE 1.52 uIU/mL (0.47-4.68)
[2017-10-30 00:50] VITALS: BP 118/74
--- NOTE | 2017-10-30 07:17 | EKG REPORT ---
SEVERITY:- ABNORMAL ECG - SINUS RHYTHM FIRST DEGREE AV BLOCK PROBABLE INFERIOR INFARCT, AGE INDETERMINATE : Confirmed by: Tunde Odonnell MD 30-Oct-2017 07:16:56
== END 2017-10-30 00:59 | disposition home or self-care (01) ==
LOC: ER 19:48
DX: E11.649 Type 2 diabetes mellitus with hypoglycemia without coma (principal); R63.4 Abnormal weight loss; Z68.29 Body mass index [BMI] 29.0-29.9, adult; R51 Headache; R07.9 Chest pain, unspecified; I25.10 Atherosclerotic heart disease of native coronary artery without angina pectoris; I10 Essential (primary) hypertension; I25.2 Old myocardial infarction; Z91.040 Latex allergy status; Z88.5 Allergy status to narcotic agent; Z91.048 Other nonmedicinal substance allergy status; Z82.49 Family history of ischemic heart disease and other diseases of the circulatory system; Z83.3 Family history of diabetes mellitus; Z95.5 Presence of coronary angioplasty implant and graft; Z95.1 Presence of aortocoronary bypass graft
CPT/HCPCS: 36415; 71045; 80053; 82550; 82553; 82962; 84439; 84443; 84484; 84681; 85025; 93005; 93010; 99284

== ENCOUNTER 2017-12-31 22:53 | Emergency (ER) | payer OTHER ==
--- NOTE | 2018-01-01 01:39 | ER Document Report ---
ED Flu Like - General Chief Complaint: Flu Symptoms Stated Complaint: FLU LIKE SYMPTOMS Time Seen by Provider: 01/01/18 01:22 Mode of Arrival: Ambulatory Information source: Patient Notes: 62-year-old male presents to ED for complaint of fever body aches chills congestion and fatigue. He states that started about noon today. He states he had flu in the past and was afraid that he had the flu. He states he did not take his temperature so he does not know if he had a fever at home. He is afebrile in the emergency room. Patient is alert and oriented respirations regular and unlabored speaking in full sentences walks with a even steady gait. TRAVEL OUTSIDE OF THE [place] IN LAST 30 DAYS: No - HPI Onset: This afternoon Timing/Duration: Persistent Quality of pain: Achy Severity: Moderate Pain Level: 2 Associated symptoms: Body/muscle aches, Chills, Nonproductive cough, Rhinnorhea , Sinus pain/drainage Similar symptoms previously: Yes Recently seen / treated by doctor: No - Related Data Allergies/Adverse Reactions: latex [Latex] Allergy (Verified 11/27/16 05:21) oxycodone [From Percocet] Allergy (Verified 11/27/16 05:21) adhesive tape [Adhesive Tape] Adverse Reaction (Verified 11/27/16 05:21) Past Medical History - General Information source: Patient - Social History Smoking Status: Never Smoker Cigarette use (# per day): No Chew tobacco use (# tins/day): Yes Smoking Education Provided: No Frequency of alcohol use: None Drug Abuse: None Lives with: Family Family History: CAD, DM, Hypertension Patient has suicidal ideation: No Patient has homicidal ideation: No - Past Medical History Cardiac Medical History: Reports: Hx Congestive Heart Failure, Hx Coronary Artery Disease, Hx Heart Attack - x14, Hx Hypercholesterolemia, Hx Hypertension Pulmonary Medical History: Reports: Hx Pneumonia EENT Medical History: Reports: None Neurological Medical History: Reports: None Endocrine Medical History: Reports: Hx Diabetes Mellitus Type 2 Renal/ Medical History: Reports: None Malignancy Medical History: Reports None GI Medical History: Reports: None Musculoskeletal Medical History: Reports None Skin Medical History: Reports None Psychiatric Medical History: Reports: None Traumatic Medical History: Reports: None Infectious Medical History: Reports: None Past Surgical History: Reports: Hx Cardiac Catheterization - stents X3, Hx Cardiac Surgery - CABG, Hx Coronary Artery Bypass Graft - 3 vessel CABG, Hx Coronary Stent - 5 angioplasties, last 2 stents placed on05/25/, Hx Vascular Surgery - stent in LLE - Immunizations Hx Diphtheria, Pertussis, Tetanus Vaccination: Yes Review of Systems - Review of Systems Constitutional: Chills, Recent illness. denies: Fever EENT: No symptoms reported, Nose congestion, Nose discharge, Sinus pressure, Sinus discharge Cardiovascular: No symptoms reported Respiratory: Cough. denies: Short of breath, Sputum, Wheezing Gastrointestinal: No symptoms reported Genitourinary: No symptoms reported Male Genitourinary: No symptoms reported Musculoskeletal: Muscle pain, Muscle stiffness - Body aches Skin: No symptoms reported Hematologic/Lymphatic: No symptoms reported Neurological/Psychological: No symptoms reported -: Yes All other systems reviewed and negative Physical Exam - Vital signs Vitals: Temp Pulse Resp BP Pulse Ox 98.7 F 62 16 137/77 H 99 12/31/17 23:38 12/31/17 23:38 12/31/17 23:38 12/31/17 23:38 12/31/17 23:38 Interpretation: Normal - General General appearance: Appears well, Alert - HEENT Head: Normocephalic, Atraumatic Eyes: Normal Pupils: PERRL Ears: Normal External canal: Normal Tympanic membrane: Normal Sinus: Normal Nasal: Purulent discharge, Swelling Mouth/Lips: Normal Mucous membranes: Normal Pharynx: Post nasal drainage. No: Erythema, Exudate Neck: Normal - Respiratory Respiratory status: No respiratory distress Chest status: Nontender Breath sounds: Normal, Nonproductive cough. No: Decreased air movement, Productive cough, Rales, Rhonchi, Stridor, Wheezing Chest palpation: Normal - Cardiovascular Rhythm: Regular Heart sounds: Normal auscultation Murmur: No - Abdominal Inspection: Normal Distension: No distension Bowel sounds: Normal Tenderness: Nontender Organomegaly: No organomegaly - Back Back: Normal, Nontender - Extremities General upper extremity: Normal inspection, Nontender, Normal color, Normal ROM , Normal temperature General lower extremity: Normal inspection, Nontender, Normal color, Normal ROM , Normal temperature, Normal weight bearing. No: James's sign - Neurological Neuro grossly intact: Yes Cognition: Normal Orientation: AAOx4 [place] Coma Scale Eye Opening: Spontaneous [place] Coma Scale Verbal: Oriented [place] Coma Scale Motor: Obeys Commands [place] Coma Scale Total: 15 Speech: Normal Motor strength normal: LUE, RUE, LLE, RLE Sensory: Normal - Psychological Associated symptoms: Normal affect, Normal mood - Skin Skin Temperature: Warm Skin Moisture: Dry Skin Color: Normal Course - Re-evaluation Re-evalutation: 01/01/18 01:39 Assessment consistent with an upper respiratory infection. After performing a Medical Screening Examination, I estimate there is LOW risk for ACUTE CORONARY SYNDROME, RESPIRATORY FAILURE, SEPSIS OR MENINGITIS, thus I consider the discharge disposition reasonable. I have reevaluated this patient multiple times and no significant life threatening changes are noted. The patient and I have discussed the diagnosis and risks, and we agree with discharging home with close follow-up. We also discussed returning to the Emergency Department immediately if new or worsening symptoms occur. We have discussed the symptoms which are most concerning (e.g., changing or worsening pain, trouble swallowing or breathing, neck stiffness, fever) that necessitate immediate return. - Vital Signs Vital signs: Temp Pulse Resp BP Pulse Ox 98.7 F 62 16 137/77 H 99 12/31/17 23:38 12/31/17 23:38 12/31/17 23:38 12/31/17 23:38 12/31/17 23:38 Discharge - Discharge Clinical Impression: URI (upper respiratory infection) Qualifiers: URI type: unspecified URI Qualified Code(s): J06.9 - Acute upper respiratory infection, unspecified Condition: Stable Disposition: HOME, SELF-CARE Additional Instructions: UPPER RESPIRATORY ILLNESS: You have a viral infection of the respiratory passages -- a "cold." This common infection causes nasal congestion, drainage, and often sore throat and cough. It is highly contagious. The disease usually lasts about 10 to 14 days. There is no "cure" for the viral infection -- it must run its course. If there is a complication, such as bacterial infection in the nose, sinuses, middle ear, or bronchial tubes, antibiotics may be required. The antibiotics won't affect the virus. Drink plenty of fluids. A humidifier may help. An expectorant medication or decongestant may make you more comfortable. Use acetaminophen or ibuprofen for fever or aches. See the doctor if fever persists over two days, if there is any significant worsening of your symptoms, or if you simply fail to improve as expected. Go to your drugstore and ask the pharmacist for Coricidin HB which is a cold medicine that you can take with high blood pressure. You can also ask for Flonase which is [id number] and can help you with your cough and cold symptoms. Another remedy that will help your cold symptoms is gargling with warm salt and soda solution to remove the drainage from the back of your throat. Salt and soda solution 1 quart of water 1 tablespoon of salt 1 teaspoon of baking soda Mixed 3 ingredients together and boil for 1 minute Placed in a covered quart jar Use 1/2 ounce of cold solution to gargle 3 times a day USE OF ACETAMINOPHEN (Tylenol): Acetaminophen may be taken for pain relief or fever control. It's much safer than aspirin, offering a wider range of "safe" dosages. It is safe during . Some brand names are Tylenol, Panadol, Datril, Anacin 3, Tempra, and Liquiprin. Acetaminophen can be repeated every four hours. The following are maximum recommended dosages: >89 pounds or adults 650 mg to 900 mg Acetaminophen can be repeated every four hours. Maximum dose not to exceed 4000 mg a day. SMOKING: If you smoke, you should stop smoking. The tar and chemicals in cigarette smoke are harmful. Smoking has been shown to cause: emphysema chronic bronchitis lung cancer mouth and throat cancer stomach and pancreas cancer premature aging defects In addition, smoking increases ear and lung infections in children of smokers. FOLLOW-UP CARE: If you have been referred to a physician for follow-up care, call the physician s office for an appointment as you were instructed or within the next two days. If you experience worsening or a significant change in your symptoms, notify the physician immediately or return to the Emergency Department at any time for re-evaluation. Forms: Elevated Blood Pressure, Smoking Cessation Education Referrals: ELPIDIO VEGA PA-C [Primary Care Provider] - Follow up tomorrow
[2018-01-01 01:41] VITALS: BP 135/72
== END 2018-01-01 01:42 | disposition home or self-care (01) ==
LOC: ER 22:53
DX: J06.9 Acute upper respiratory infection, unspecified (principal); R53.83 Other fatigue; M79.10 Myalgia, unspecified site; J34.89 Other specified disorders of nose and nasal sinuses; R05 Cough; R09.82 Postnasal drip; R68.83 Chills (without fever); I25.10 Atherosclerotic heart disease of native coronary artery without angina pectoris; I10 Essential (primary) hypertension; E11.9 Type 2 diabetes mellitus without complications; Z91.040 Latex allergy status; Z88.5 Allergy status to narcotic agent; Z95.5 Presence of coronary angioplasty implant and graft; Z95.1 Presence of aortocoronary bypass graft
CPT/HCPCS: 99283

== ENCOUNTER 2018-01-12 01:32 | Emergency (ER) | payer OTHER ==
[2018-01-12] MEDS ORDERED: FENTANYL 25 MCG/HR PATCH.TD72 TD ONE (01:44)
--- NOTE | 2018-01-12 01:48 | ER Document Report ---
ED General - General Stated Complaint: SHORTNESS OF BREATH Time Seen by Provider: 01/12/18 01:44 Notes: Patient is a 62-year-old male with a past medical history of coronary artery disease status post CABG, multiple stents, hypertension, chronic opiate dependence currently on fentanyl patches apparently for his chronic chest pain who presents with concerns of opiate withdrawal as well as chest pain. He does arrive by EMS. The patient has been off of his fentanyl patch for the past 3 days as he has not been able to get to the pharmacy to refill the prescription. Patient states that since that time he has had tremors in his, body aches, nausea, loose stools. Denies a history of similar symptoms in the past. He reports that he did have an episode of stabbing, aching chest pain tonight that did resolve after taking nitroglycerin. He states that this is very similar to the pains that he had prior to getting on chronic fentanyl patches stating " when I am on the fentanyl patch as I do not feel anything". He states that if he had a fentanyl patch he would not be here in the emergency department tonight and that is the primary reason for his visit. He does deny any current chest pain, shortness of breath, lightheadedness, weakness. TRAVEL OUTSIDE OF THE [place] IN LAST 30 DAYS: No - Related Data Allergies/Adverse Reactions: latex [Latex] Allergy (Verified 11/27/16 05:21) oxycodone [From Percocet] Allergy (Verified 11/27/16 05:21) adhesive tape [Adhesive Tape] Adverse Reaction (Verified 11/27/16 05:21) Past Medical History - General Information source: Patient - Social History Smoking Status: Current Every Day Smoker Frequency of alcohol use: None Drug Abuse: None Family History: CAD, DM, Hypertension - Past Medical History Cardiac Medical History: Reports: Hx Congestive Heart Failure, Hx Coronary Artery Disease, Hx Heart Attack - x14, Hx Hypercholesterolemia, Hx Hypertension Pulmonary Medical History: Reports: Hx Pneumonia Endocrine Medical History: Reports: Hx Diabetes Mellitus Type 2 Renal/ Medical History: Denies: Hx Peritoneal Dialysis Psychiatric Medical History: Denies: Hx Depression Past Surgical History: Reports: Hx Cardiac Catheterization - stents X3, Hx Cardiac Surgery - CABG, Hx Coronary Artery Bypass Graft - 3 vessel CABG, Hx Coronary Stent - 5 angioplasties, last 2 stents placed on03/10/, Hx Vascular Surgery - stent in LLE - Immunizations Hx Diphtheria, Pertussis, Tetanus Vaccination: Yes Review of Systems - Review of Systems Notes: Constitutional: Negative for fever. HENT: Negative for sore throat. Eyes: Negative for visual changes. Cardiovascular: Positive for chest pain. Respiratory: Negative for shortness of breath. Gastrointestinal: Negative for abdominal pain, vomiting or diarrhea. Genitourinary: Negative for dysuria. Musculoskeletal: Negative for back pain. Skin: Negative for rash. Neurological: Negative for headaches, weakness or numbness. 10 point ROS negative except as marked above and in HPI. Physical Exam - Vital signs Interpretation: Normal Notes: PHYSICAL EXAMINATION: GENERAL: Well-appearing, well-nourished and in no acute distress. HEAD: Atraumatic, normocephalic. EYES: Pupils equal round and reactive to light, extraocular movements intact, sclera anicteric, conjunctiva are normal. ENT: nares patent, oropharynx clear without exudates. Moist mucous membranes. NECK: Normal range of motion, supple without lymphadenopathy LUNGS: Breath sounds clear to auscultation bilaterally and equal. No wheezes rales or rhonchi. HEART: Regular rate and rhythm without murmurs ABDOMEN: Soft, nontender, normoactive bowel sounds. No guarding, no rebound. No masses appreciated. EXTREMITIES: Normal range of motion, no pitting or edema. No cyanosis. NEUROLOGICAL: No focal neurological deficits. Moves all extremities spontaneously and on command. PSYCH: Normal mood, normal affect. SKIN: Warm, Dry, normal turgor, no rashes or lesions noted. Course - Re-evaluation Re-evalutation: 01/12/18 01:46 Patient presents with feelings of narcotic withdrawal as he has been out of his fentanyl patches for the past 3 days. Patient did also have chest pain today which is apparently the reason that he is on fentanyl patches as he has had daily, chronic chest pain. States that there is nothing new or different about that chest pain today only stating "when I am on the fentanyl patches I do not feel anything". 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 He does bring the empty boxes with him. [place] controlled substance database does verify that the patient should be eligible for renewed prescriptions although the appropriateness of fentanyl patches for chronic chest pain is questionable. I have placed the patient with a single fentanyl patch although I will not provide new prescription. If labs are unremarkable will plan for discharge home with accommodations for outpatient follow-up. - Laboratory Result Diagrams: 01/12/18 02:00 01/12/18 02:00 - Diagnostic Test Radiology reviewed: Image reviewed, Reports reviewed Radiology results interpreted by me: 01/12/18 02:28 Chest x-ray: No acute infiltrate or pneumothorax Discharge - Discharge Clinical Impression: Opiate dependence Qualifiers: Substance use status: in withdrawal Qualified Code(s): F11.23 - Opioid dependence with withdrawal Chest pain Qualifiers: Chest pain type: unspecified Qualified Code(s): R07.9 - Chest pain, unspecified Condition: Good Disposition: HOME, SELF-CARE Additional Instructions: Please follow-up with your general doctor regarding being out of your fentanyl patches. You were also seen today for chest pain. The exact cause of your pain is unclear. However, based on your cardiac enzyme testing, chest x-ray, and EKG it does not appear that it is from an immediately life-threatening cause at this time. Although your testing here is normal is critical that you follow-up with your primary care physician for continued evaluation of this chest pain and possible stress testing. I recommended you see your physician within the next 24-48 hours to be evaluated for consideration of a stress test. Please return to emergency department immediately if you have worsening of your chest pain, shortness of breath, vomiting, become unable to exert yourself due to pain or difficulty breathing, you pass out, or have any pain that radiates into your arms, jaw, or back. Please also return if you have any additional symptoms that are concerning to you. Referrals: ELPIDIO VEGA PA-C [Primary Care Provider] - Follow up as needed
[2018-01-12 02:08] LABS: ABSOLUTE BASOPHILS # (AUTO) 0.1 10^3/uL (0.0-0.2); ABSOLUTE EOSINOPHILS # (AUTO) 0.2 10^3/uL (0.0-0.6); ABSOLUTE LYMPHOCYTES (AUTO) 1.6 10^3/uL (0.5-4.7); ABSOLUTE MONOCYTES (AUTO) 0.6 10^3/uL (0.1-1.4); ABSOLUTE NEUT (AUTO) 4.3 10^3/uL (1.7-8.2); BASOPHILS % (AUTO) 0.8 % (0-2); EOSINOPHILS % (AUTO) 3.3 % (0-6); HEMATOCRIT 44.6 % (37.9-51.0); HEMOGLOBIN 15.5 g/dL (13.5-17.0); LYMPHOCYTES % (AUTO) 23.7 % (13-45); MEAN CORPUSCULAR HEMOGLOBIN 30.8 pg (27.0-33.4); MEAN CORPUSCULAR HGB CONC 34.9 g/dL (32.0-36.0); MEAN CORPUSCULAR VOLUME 89 fl (80-97); MONOCYTES % (AUTO) 8.2 % (3-13); PLATELET COUNT 164 10^3/uL (150-450); RED BLOOD COUNT 5.04 10^6/uL (4.35-5.55); RED CELL DISTRIBUTION WIDTH 13.6 % (11.5-14.0); TOTAL CELLS COUNTED % (AUTO) 100 %; WHITE BLOOD COUNT 6.8 10^3/uL (4.0-10.5)
--- NOTE | 2018-01-12 02:27 | RADIOLOGY REPORT (SQ) ---
CLINICAL HISTORY: cp COMPARISON: None. TECHNIQUE: XR CHEST 1 VIEW 01/12/2018 1:45 AM CDT FINDINGS: Cardiac silhouette is mildly enlarged. Sternotomy was performed. Lungs are clear without consolidation, atelectasis, mass or edema. There is no pleural effusion. There is no pneumothorax. There are no acute osseous findings. IMPRESSION: Clear lungs.
[2018-01-12 02:37] LABS: BLOOD UREA NITROGEN 10 mg/dL (7-20); GLUCOSE 202 mg/dL (75-110)
[2018-01-12 02:38] LABS: ANION GAP 10 (5-19); CARBON DIOXIDE 25 mmol/L (22-30); CHLORIDE 106 mmol/L (98-107); POTASSIUM 3.7 mmol/L (3.6-5.0); SODIUM 141.3 mmol/L (137-145)
[2018-01-12 04:55] VITALS: BP 153/94
--- NOTE | 2018-01-12 10:00 | EKG REPORT ---
SEVERITY:- ABNORMAL ECG - SINUS RHYTHM BORDERLINE LEFT AXIS DEVIATION CONSIDER ANTERIOR INFARCT BORDERLINE T ABNORMALITIES, DIFFUSE LEADS : Confirmed by: Henrique Cedeño 12-Jan-2018 09:59:54
== END 2018-01-12 03:45 | disposition home or self-care (01) ==
LOC: ER 01:32
DX: F11.23 Opioid dependence with withdrawal (principal); R07.9 Chest pain, unspecified; G89.29 Other chronic pain; R19.4 Change in bowel habit; R25.1 Tremor, unspecified; R11.0 Nausea; I25.10 Atherosclerotic heart disease of native coronary artery without angina pectoris; I25.2 Old myocardial infarction; I10 Essential (primary) hypertension; E11.9 Type 2 diabetes mellitus without complications; F17.200 Nicotine dependence, unspecified, uncomplicated; Z95.5 Presence of coronary angioplasty implant and graft; Z95.1 Presence of aortocoronary bypass graft; Z91.040 Latex allergy status; Z88.5 Allergy status to narcotic agent
CPT/HCPCS: 93005; 99285; 36415; 85025; 80048; 84484; 71045; 93010; J3490

== ENCOUNTER → 2018-02-11 | Outpatient (CLI) | payer OTHER ==
--- NOTE | 2018-02-11 11:57 | RADIOLOGY REPORT (SQ) ---
EXAM DESCRIPTION: MRI CERVICAL SPINE WITHOUT COMPLETED DATE/TIME: 02/11/2018 11:38 am REASON FOR STUDY: RADICULOPATHY, CERVICAL REGION M54.12 RADICULOPATHY, CERVICAL REGION COMPARISON: None. TECHNIQUE: Sagittal and Axial imaging includes T1, T2, STIR and gradient echo sequences. LIMITATIONS: None. FINDINGS: ALIGNMENT: Normal. VERTEBRAE: Intact. BONE MARROW: Normal. No marrow replacement or reactive changes. DISCS: Disc space loss of height with vertebral body endplate mild bony spurring at C6-7. Diffuse de creased T2 weighted intervertebral disc signal throughout the cervical spine HARDWARE: None in the spine. CORD AND BASE OF BRAIN: Normal in size and signal intensity. SOFT TISSUES: No soft tissue masses. C1-C2: No significant spinal stenosis. C2-C3: No significant spinal stenosis or exit foraminal stenosis. C3-C4: No significant spinal stenosis or exit foraminal stenosis. C4-C5: Minimal central posterior disc bulging. No significant spinal stenosis or exit foraminal sten osis. C5-C6: Broad diffuse posterior disc bulge and bony spurring is present, effacing the ventral thecal s ac and abutting the ventral cord without cord flattening or abnormal intrinsic cord signal. Borderli ne central canal narrowing. Moderate bilateral foraminal narrowing from facet and uncovertebral hype rtrophy C6-C7: Broad diffuse posterior disc bulge and bony spurring partly effaces the ventral thecal sac wit hout cord flattening or abnormal intrinsic cord signal. Borderline central canal narrowing. Moderat e right, high-grade left foraminal stenosis from facet and uncovertebral hypertrophy. C7-T1: No significant spinal stenosis or exit foraminal stenosis. UPPER THORACIC: Incompletely imaged. No significant spinal stenosis or exit foraminal stenosis. OTHER: No other significant finding. IMPRESSION: Degenerative disc changes most pronounced at C5-6 and C6-7 as above TECHNICAL DOCUMENTATION: JOB ID: [id number] [employer]- All Rights Reserved Reading location - IP/workstation name: [email or web address]
== END ==
LOC: RAD 09:50
PROVIDERS: ATTEND Orthopaedic Surgery
DX: M50.123 Cervical disc disorder at C6-C7 level with radiculopathy (principal)
CPT/HCPCS: 72141

== ENCOUNTER 2019-04-22 21:39 | Observation (INO) | payer OTHER, MEDICARE ==
[2019-04-22 21:57] LABS: INTERNATIONAL RATION (INR) 1.01; PROTHROMBIN TIME 13.3 SEC (11.4-15.4)
--- NOTE | 2019-04-22 21:57 | ER Document Report ---
ED General - General Stated Complaint: NUMBNESS ON LEFT SIDE/POSSIBLE STROKE Time Seen by Provider: 04/22/19 21:50 Primary Care Provider: ELKE BAKER MD [ASSOCIATE] - Follow up as needed Mode of Arrival: Medic Notes: 64-year-old male arrives by EMS with chief complaint of blurry vision and also slurred speech that began around 2030 just prior to arrival per daughter. Patient took a nitroglycerin tablet thinking he may have had an AL. Patient has a history of 12 MIs in the past and 2 angioplasty with stents and has had a CABG. He also has had a TIA in the past. His initial blood pressure was 188/89 and this was per report of EMS Brown. Patient also has had some drift from his left greater than right hand. He has strong online journalist on the right and left hand is weak online journalist. He does have online journalist with good pulses bilaterally radial. He has full range of motion of both legs. Patient on metoprolol and uses a Amharic/[place] diabetes patch. Patient reports he leaned forward and felt a pop in the back of his neck. Patient reports he has a "bad C6-C7 area". I was called by Florencio Hernandez radiologist via [employer] on phone. he reports he has not seen Dr. Ordonez in over 5 years. He usually sees Dr. Rodas at the [facility] and Joe CATHERINE for fentanyl patch for his chronic pain. He also receives injections by a [place] neurosurgeon and gets a shot in his neck every few weeks." TRAVEL OUTSIDE OF THE [place] IN LAST 30 DAYS: No - HPI Onset: Just prior to arrival Onset/Duration: Sudden, Constant Severity: Mild Pain Level: 1 Associated symptoms: Weakness Exacerbated by: Denies Relieved by: Denies Similar symptoms previously: Yes Recently seen / treated by doctor: Yes - Related Data Allergies/Adverse Reactions: latex [Latex] Allergy (Verified 11/27/16 05:21) oxycodone [From Percocet] Allergy (Verified 11/27/16 05:21) adhesive tape [Adhesive Tape] Adverse Reaction (Verified 11/27/16 05:21) Past Medical History - General Information source: Patient, Emergency Med Personnel - Social History Smoking Status: Never Smoker Cigarette use (# per day): No Chew tobacco use (# tins/day): No Smoking Education Provided: No Frequency of alcohol use: None Drug Abuse: None, Other - Is on fentanyl patch on his left shoulder for chronic chest and heart pain and 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 Lives with: Family - Reports he has chronic neck problems and felt a pop in his neck when he stooped down tonight. Family History: CAD, DM, Hypertension - Past Medical History Cardiac Medical History: Reports: Hx Congestive Heart Failure, Hx Coronary Artery Disease, Hx Heart Attack - x14, Hx Hypercholesterolemia, Hx Hypertension Pulmonary Medical History: Reports: Hx Pneumonia Endocrine Medical History: Reports: Hx Diabetes Mellitus Type 2 Renal/ Medical History: Denies: Hx Peritoneal Dialysis Psychiatric Medical History: Denies: Hx Depression Past Surgical History: Reports: Hx Cardiac Catheterization - stents X3, Hx Cardiac Surgery - CABG, Hx Coronary Artery Bypass Graft - 3 vessel CABG, Hx Coronary Stent - 5 angioplasties, last 2 stents placed on05/25/, Hx Vascular Surgery - stent in LLE - Immunizations Hx Diphtheria, Pertussis, Tetanus Vaccination: Yes Review of Systems - Review of Systems Constitutional: See HPI, Weakness EENT: No symptoms reported Cardiovascular: Chest pain Respiratory: No symptoms reported Gastrointestinal: No symptoms reported Genitourinary: No symptoms reported Male Genitourinary: No symptoms reported Musculoskeletal: See HPI, Other - Left upper extremity with decreased strength and drift Skin: No symptoms reported Hematologic/Lymphatic: No symptoms reported Neurological/Psychological: See HPI, Weakness Physical Exam - Vital signs Interpretation: Hypertensive - HEENT Head: Normocephalic Eyes: Normal Conjunctiva: Normal Cornea: Normal, Superficial foreign body Eyelashes: Normal Pupils: PERRL Ears: Normal Sinus: Normal Nasal: Normal Mouth/Lips: Normal Mucous membranes: Normal Pharynx: Other - eDentulous Neck: Normal - Respiratory Respiratory status: No respiratory distress Chest status: Nontender Breath sounds: Normal Chest palpation: Normal - Cardiovascular Rhythm: Regular Heart sounds: Normal auscultation Murmur: No Friction rub: No Nenita's crunch: No - Abdominal Inspection: Normal Distension: No distension Bowel sounds: Normal Tenderness: Nontender - Back Back: Normal - Extremities General upper extremity: Other - Arm within normal limits online journalist 5 out of 5 but left arm has positive drift and only 3 out of 5 strength online journalist. General lower extremity: Normal inspection - Neurological Neuro grossly intact: Yes Cognition: Normal Orientation: AAOx4 [place] Com[place] Scale Eye Opening: Spontaneous [place] Coma Scale Verbal: Oriented [place] Coma Scale Motor: Obeys Commands Los Coma Scale Total: 15 Speech: Normal Cranial nerves: Normal Cerebellar coordination: Normal - Psychological Associated symptoms: Normal affect - Skin Skin Temperature: Warm Skin Moisture: Dry Course - Laboratory Result Diagrams: 04/22/19 21:43 04/22/19 21:43 Laboratory results interpreted by me: 04/22/19 21:43 Glucose 126 H - Diagnostic Test Radiology reviewed: Reports reviewed - EKG Interpretation by Me EKG shows normal: Sinus rhythm Critical Care Note - Critical Care Note Total time excluding time spent on procedures (mins): 90 Comments: I discussed this case with Dr. Leiva who advised IMCU Discharge - Discharge Clinical Impression: TIA (transient ischemic attack), Left arm weakness Chronic pain Qualifiers: Chronic pain type: chronic pain syndrome Qualified Code(s): G89.4 - Chronic pain syndrome Condition: Good Disposition: ADMITTED INPATIENT Admitting Provider: Cali (Hospitalist) Unit Admitted: IMCU Referrals: ELKE BAKER MD [ASSOCIATE] - Follow up as needed
[2019-04-22 21:58] LABS: PARTIAL THROMBOPLASTIN TIME 29.1 SEC (23.5-35.8)
[2019-04-22 22:06] LABS: ABSOLUTE EOSINOPHILS # (AUTO) 0.3 10^3/uL (0.0-0.6); ABSOLUTE LYMPHOCYTES (AUTO) 2.5 10^3/uL (0.5-4.7); ABSOLUTE MONOCYTES (AUTO) 0.6 10^3/uL (0.1-1.4); ABSOLUTE NEUT (AUTO) 5.2 10^3/uL (1.7-8.2); BASOPHILS % (AUTO) 0.4 % (0-2); EOSINOPHILS % (AUTO) 3.3 % (0-6); HEMATOCRIT 47.4 % (37.9-51.0); HEMOGLOBIN 16.5 g/dL (13.5-17.0); LYMPHOCYTES % (AUTO) 29.1 % (13-45); MEAN CORPUSCULAR HEMOGLOBIN 30.8 pg (27.0-33.4); MEAN CORPUSCULAR HGB CONC 34.9 g/dL (32.0-36.0); MEAN CORPUSCULAR VOLUME 88 fl (80-97); MONOCYTES % (AUTO) 6.8 % (3-13); PLATELET COUNT 186 10^3/uL (150-450); RED BLOOD COUNT 5.37 10^6/uL (4.35-5.55); RED CELL DISTRIBUTION WIDTH 13.8 % (11.5-14.0); SEGMENTED NEUTROPHILS % (AUTO) 60.4 % (42-78); TOTAL CELLS COUNTED % (AUTO) 100 %; WHITE BLOOD COUNT 8.6 10^3/uL (4.0-10.5)
--- NOTE | 2019-04-22 22:08 | RADIOLOGY REPORT (SQ) ---
EXAM DESCRIPTION: CT HEAD WITHOUT IV CONTRAST COMPLETED DATE/TME: 04/22/2019 21:43 CLINICAL HISTORY: 64 years, Male, stroke symptoms COMPARISON: None. EXAM DESCRIPTION: CLINICAL HISTORY: stroke symptoms COMPARISON: None Available TECHNIQUE: Contiguous axial CT images of the head were obtained. Coronal and sagittal reconstructions were created from the axial data. This exam was performed according to our departmental dose-optimization program, which includes automated exposure control, adjustment of the mA and/or kV according to patient size and/or use of iterative reconstruction technique. FINDINGS: There are intracranial vascular calcifications. There is no evidence of acute mass, mass effect, midline shift or hemorrhage. The ventricles and extra-axial CSF spaces are unremarkable. The brain parenchyma appears normal for the patient's age. No acute abnormalities of the bones is seen. IMPRESSION: No acute intracranial abnormality. I discussed these critical findings with Dr. Bermudez at 2103 hours central time April 22, 2019.
--- NOTE | 2019-04-22 22:13 | RADIOLOGY REPORT (SQ) ---
EXAM DESCRIPTION: XR CHEST 1 VIEW COMPLETED DATE/TME: 04/22/2019 21:43 CLINICAL HISTORY: 64 years, Male, stroke symptoms COMPARISON: 10/29/2017 chest NUMBER OF VIEWS: 1 TECHNIQUE: Portable chest LIMITATIONS: None. FINDINGS: Cardiac megaly. Stable postsurgical change of the mediastinum. Osteopenia. Lungs clear. No pneumothorax IMPRESSION: No acute cardiopulmonary process copyright 2010 [employer]- All Rights Reserved
[2019-04-22 22:25] LABS: ALBUMIN 4.1 g/dL (3.5-5.0); ALKALINE PHOSPHATASE 114 U/L (38-126); ANION GAP 9 (5-19); ASPARTATE AMINO TRANSFERASE 27 U/L (17-59); BLOOD UREA NITROGEN 11 mg/dL (7-20); CALCIUM 9.2 mg/dL (8.4-10.2); CARBON DIOXIDE 27 mmol/L (22-30); CHLORIDE 103 mmol/L (98-107); CREATINE KINASE 59 U/L (55-170); GLUCOSE 126 mg/dL (75-110); POTASSIUM 3.9 mmol/L (3.6-5.0); TOTAL PROTEIN 6.7 g/dL (6.3-8.2)
[2019-04-22 22:34] LABS: CREATINE KINASE MB 0.99 ng/mL (<4.55)
[2019-04-22 22:35] LABS: TROPONIN I < 0.012 ng/mL
[2019-04-22] MEDS ORDERED: ACETAMINOPHEN 325 MG TABLET PO ONE (23:46)
[2019-04-23] MEDS ORDERED: MAGNESIUM HYDROXIDE SUSP 30 ML UDCUP PO PRN (00:12)
[2019-04-23] MEDS ORDERED: DOCUSATE SODIUM 100 MG CAPSULE PO PRN (00:12)
[2019-04-23] MEDS ORDERED: ATORVASTATIN CALCIUM 80 MG TABLET PO ONE (01:00)
[2019-04-23] MEDS ORDERED: METOPROLOL TARTRATE 50 MG TABLET PO ONE (01:00)
[2019-04-23] MEDS ORDERED: INFLUENZA QUAD (6MOS+) 2019-20 VAC 0.5 ML SYR IM ONE (03:47)
--- NOTE | 2019-04-23 05:39 | PDOC H&P ---
History of Present Illness Admission Date/PCP: 04/23/19 00:47 ELPIDIO VEGA PA-C Patient complains of: Left-sided numbness History of Present Illness: RUSSELL LEWIS is a 64 year old male with a past medical history of coronary artery disease post CABG and subsequent stenting, diabetes, hypertension and fentanyl patch dependent chronic pain of the sternum following bypass and cervical spine with left upper extremity neuropathy, likely vascular dementia. Patient presents as talkative but poor historian. Emergency room provider documents family noted slurred speech associated with a chronic numbness to his left arm including a CT head with vascular calcification but without subacute or acute stroke. He is referred to the hospitalist for evaluation. Again patient history of the present illness is uncertain though he is awake and alert talkative without distress moving all 4 extremities. Past Medical History Cardiac Medical History: Reports: Congestive Heart Failure, Coronary Artery Disease, Myocardial Infarction - x14, Hyperlipidema, Hypertension Pulmonary Medical History: Reports: Pneumonia Endocrine Medical History: Reports: Diabetes Mellitus Type 2 Psychiatric Medical History: Denies: Depression Past Surgical History Past Surgical History: Reports: Cardiac Catheterization - stents X3, Coronary Artery Bypass Graft - 3 vessel CABG, Coronary Stent - 5 angioplasties, last 2 stents placed on, Vascular Surgery - stent in LLE Social History Information Source: Patient Lives with: Family - Reports he has chronic neck problems and felt a pop in his neck when he stooped down tonight. Smoking Status: Former Smoker Electronic Cigarette use?: No Frequency of Alcohol Use: Occasional Hx Recreational Drug Use: No Drugs: None Hx Prescription Drug Abuse: No - Advance Directive Resuscitation Status: Full Code Family History Family History: CAD, DM, Hypertension Parental Family History Reviewed: Yes Children Family History Reviewed: Yes Sibling(s) Family History Reviewed.: Yes Medication/Allergy Home Medications: Clopidogrel Bisulfate [Plavix] 75 mg PO DAILY 06/20/14 Furosemide [Lasix 20 mg Tablet] 20 mg PO QAM 06/20/14 Insulin Glargine,Hum.rec.anlog [Lantus] 25 unit SQ QHS PRN 06/20/14 Isosorbide Mononitrate [Imdur 60 mg Tablet.er] 120 mg PO DAILY 06/20/14 Aspirin [Aspirin EC] 81 mg PO DAILY 05/13/16 Cyanocobalamin (Vitamin B-12) [Vitamin B-12 1000 Mcg Tablet] 1,000 mcg PO DAILY 05/13/16 Diclofenac Sodium [Voltaren] 1 applic TOP Q6HP PRN 05/13/16 Gabapentin 1,200 mg PO QHS 05/13/16 Gabapentin 800 mg PO BID 05/13/16 Lidocaine 1 applic TOP Q6HP PRN 05/13/16 Metoprolol Tartrate [Lopressor 50 mg Tablet] 50 mg PO BID 11/10/16 Acetaminophen with Codeine [Tylenol with Codeine #3 Tablet] 1 tab PO BIDP PRN #14 tab 03/26/17 Lidocaine HCl [Xylocaine 2% Viscous Soln 20 ml Udcup] 5 ml PO TIDP PRN #1 udc 03/26/17 Ondansetron [Zofran Odt 4 mg Tablet] 1 tab PO Q6HP PRN #15 tab.rapdis 03/26/17 Atorvastatin Calcium [Lipitor] 80 mg PO QHS 04/23/19 Fentanyl [Duragesic 25 mcg/hr Transdermal Patch] 25 mcg TD Q3DAYS 04/23/19 Metoprolol Tartrate [Lopressor 50 mg Tablet] 50 mg PO BID 04/23/19 Pregabalin 50 mg PO TID 04/23/19 Allergies/Adverse Reactions: latex [Latex] Allergy (Verified 11/27/16 05:21) oxycodone [From Percocet] Allergy (Verified 11/27/16 05:21) adhesive tape [Adhesive Tape] Adverse Reaction (Verified 11/27/16 05:21) Review of Systems Constitutional: ABSENT: chills, fever(s), headache(s), weight gain, weight loss Eyes: ABSENT: visual disturbances Ears: ABSENT: hearing changes Cardiovascular: ABSENT: chest pain, dyspnea on exertion, edema, orthropnea, palpitations Respiratory: ABSENT: cough, hemoptysis Gastrointestinal: ABSENT: abdominal pain, constipation, diarrhea, hematemesis, hematochezia, nausea, vomiting Genitourinary: ABSENT: dysuria, hematuria Musculoskeletal: ABSENT: joint swelling Integumentary: ABSENT: rash, wounds Neurological: ABSENT: abnormal gait, abnormal speech, confusion, dizziness, focal weakness, syncope Psychiatric: ABSENT: anxiety, depression, homidical ideation, suicidal ideation Endocrine: ABSENT: cold intolerance, heat intolerance, polydipsia, polyuria Hematologic/Lymphatic: ABSENT: easy bleeding, easy bruising Physical Exam Vital Signs: Temp Pulse Resp BP Pulse Ox 97.4 F 49 L 15 124/65 100 04/23/19 04:29 04/23/19 04:29 04/23/19 04:29 04/23/19 04:29 04/23/19 04:29 Intake & Output 04/21/19 04/22/19 04/23/19 11:59 11:59 11:59 Weight 83 kg General appearance: PRESENT: no acute distress, cooperative, well-developed, well-nourished Head exam: PRESENT: atraumatic, normocephalic Eye exam: PRESENT: conjunctiva pink, EOMI, PERRLA. ABSENT: scleral icterus Ear exam: PRESENT: normal external ear exam Mouth exam: PRESENT: moist, tongue midline Neck exam: ABSENT: carotid bruit, JVD, lymphadenopathy, thyromegaly Respiratory exam: PRESENT: clear to auscultation jose enrique. ABSENT: rales, rhonchi, wheezes Cardiovascular exam: PRESENT: RRR, other - Reproducible chest wall pain to palpation. ABSENT: diastolic murmur, rubs, systolic murmur Pulses: PRESENT: normal dorsalis pedis pul Vascular exam: PRESENT: normal capillary refill GI/Abdominal exam: PRESENT: normal bowel sounds, soft. ABSENT: distended, guarding, mass, organolmegaly, rebound, tenderness Rectal exam: PRESENT: deferred Extremities exam: PRESENT: full ROM. ABSENT: calf tenderness, clubbing, pedal edema Musculoskeletal exam: PRESENT: tenderness - Radiculopathy with left shoulder flexion Neurological exam: PRESENT: alert, awake, oriented to person, oriented to place, oriented to time, oriented to situation, CN II-XII grossly intact. ABSENT: motor sensory deficit Psychiatric exam: PRESENT: appropriate affect, normal mood. ABSENT: homicidal ideation, suicidal ideation Skin exam: PRESENT: dry, intact, warm. ABSENT: cyanosis, rash Results Laboratory Results: 04/22/19 21:43 04/22/19 21:43 04/22/19 04/22/19 21:43 21:43 WBC 8.6 RBC 5.37 Hgb 16.5 Hct 47.4 MCV 88 MCH 30.8 MCHC 34.9 RDW 13.8 Plt Count 186 Seg Neutrophils % 60.4 Sodium 139.0 Potassium 3.9 Chloride 103 Carbon Dioxide 27 Anion Gap 9 BUN 11 Creatinine 0.96 Est GFR ( Amer) > 60 Glucose 126 H Calcium 9.2 Total Bilirubin 1.0 AST 27 Alkaline Phosphatase 114 Total Protein 6.7 Albumin 4.1 04/22/19 04/22/19 21:43 21:43 Creatine Kinase 59 CK-MB (CK-2) 0.99 Troponin I < 0.012 Impressions: Chest X-Ray 04/22/19 21:43 IMPRESSION: No acute cardiopulmonary process copyright 2011 [employer]- All Rights Reserved Head CT 04/22/19 21:43 IMPRESSION: No acute intracranial abnormality. I discussed these critical findings with Dr. Bermudez at 2103 hours central time April 22, 2019. Assessment and Plan - Diagnosis (1) TIA (transient ischemic attack) Is this a current diagnosis for this admission?: Yes Plan: Very high risk for CVA however suspect peripheral nerve involvement with current complaint. However unable to reconcile slurred speech noted only by family as was resolved in the emergency room. CVA care set deployed, follow-up MRI brain, carotid artery Doppler and lipid profile. (2) Vascular dementia Qualifiers: Dementia behavioral disturbance: without behavioral disturbance Qualified Code(s): F01.50 - Vascular dementia without behavioral disturbance Is this a current diagnosis for this admission?: Yes Plan: Suspected by poor short-term memory and prolonged uncontrolled hypertension. Supportive care (3) Chronic pain Qualifiers: Chronic pain type: chronic pain syndrome Qualified Code(s): G89.4 - Chronic pain syndrome Is this a current diagnosis for this admission?: Yes Plan: Continue outpatient regiment (4) Left arm weakness Is this a current diagnosis for this admission?: Yes Plan: Unclear if weak versus chronic neuropathic pain or numbness from C-spine injury reproducible on exam, follow-up MRI brain (5) Coronary artery disease Qualifiers: Coronary Disease-Associated Artery/Lesion type: ute artery [place] vs. transplanted heart: ute heart Associated angina: angina presence unspecified Qualified Code(s): I25.10 - Atherosclerotic heart disease of ute coronary artery without angina pectoris Is this a current diagnosis for this admission?: Yes Plan: Not a candidate for additional angiography per patient. Currently asymptomatic, optimize risks for coronary vascular disease. - Time Time Spent with patient: 25-34 minutes - Inpatient Certification Medical Necessity: Need Close Monitoring Due to Risk of Patient Decompensation
[2019-04-23] MEDS ORDERED: HEPARIN SOD (PORCINE) 5,000 UNIT/ML 1 ML VIAL SUBCUT SCH (06:00)
[2019-04-23] MEDS ORDERED: ASPIRIN 325 MG TABLET, ENT COATED PO SCH (10:00)
[2019-04-23] MEDS ORDERED: METOPROLOL TARTRATE 50 MG TABLET PO SCH (10:00)
[2019-04-23] MEDS ORDERED: FENTANYL 25 MCG/HR PATCH.TD72 TD SCH (10:00)
[2019-04-23] MEDS ORDERED: CLOPIDOGREL BISULFATE 75 MG TABLET PO SCH (10:00)
[2019-04-23 11:48] VITALS: BP 133/61
--- NOTE | 2019-04-23 12:27 | RADIOLOGY REPORT (SQ) ---
EXAM DESCRIPTION: MRI HEAD WITHOUT COMPLETED DATE/TIME: 04/23/2019 10:33 am REASON FOR STUDY: slurred speech, L arm weak COMPARISON: CT brain 11/14/2011, 06/20/2012, 04/22/2019 MRI brain 06/21/2014 TECHNIQUE: Multiplanar imaging includes non-contrasted T1, T2, FLAIR, and diffusion with ADC map seq uences. Images stored on PACS. LIMITATIONS: None. FINDINGS: ANATOMY: No anomalies. Normal vascular flow voids. Pituitary fossa normal. CSF SPACES: Normal in size and contour. No hemorrhage. CEREBRUM: Sulci and gyri normal in size and contour. Normal white matter signal on FLAIR imaging. No evidence of hemorrhage, mass, or extraaxial fluid collection. POSTERIOR FOSSA: No signal alteration. No hemorrhage. No edema, masses or mass effect. Internal chelsey tory canals, cerebello-pontine angles, mastoids normal. DIFFUSION IMAGING: Negative for acute or sub-acute infarction. ORBITS: No masses. Globes normal. PARANASAL SINUSES: No fluid levels. Mucosa normal. OTHER: No other significant finding. IMPRESSION: NORMAL MRI OF THE BRAIN WITHOUT INTRAVENOUS GADOLINIUM CONTRAST. EVIDENCE OF ACUTE STROKE: NO. TECHNICAL DOCUMENTATION: JOB ID: [id number] [employer]- All Rights Reserved Reading location - IP/workstation name: [email or web address]
--- NOTE | 2019-04-23 12:28 | RADIOLOGY REPORT (SQ) ---
EXAM DESCRIPTION: CAROTID DOPPLER COMPLETED DATE/TIME: 04/23/2019 10:58 am REASON FOR STUDY: L arm weak COMPARISON: None. TECHNIQUE: Grayscale ultrasound, Doppler velocity and spectra, and color Doppler images acquired of the extra-cranial carotid and vertebral arteries. Images stored on PACS. LIMITATIONS: None. FINDINGS: RIGHT CAROTID CCA Velocities: Within normal limits. ICA Velocities Peak systolic 91 cm/s. End diastolic 28 cm/s. Proximal ICA/CCA peak systolic ratio 0.75. There is intimal thickening in the SC CA. Plaques are present in the carotid bulb and proximal ICA. LEFT CAROTID CCA Velocities: Within normal limits. ICA Velocities Peak systolic 73 cm/s. End diastolic 26 cm/s. Proximal ICA/CCA peak systolic ratio 0.81. Small amount plaque the proximal ICA. VERTEBRAL ARTERIES: Antegrade flow. Normal waveforms. SUBCLAVIAN ARTERIES: No finding. OTHER: No other significant finding. IMPRESSION: NO HEMODYNAMICALLY SIGNIFICANT STENOSIS. COMMENT: Quality ID #[id number]: Velocity criteria are extrapolated from the diameter data as defined by t he Society of Radiologists in Ultrasound Consensus Conference. Radiology 2003: 229; 340-346. TECHNICAL DOCUMENTATION: JOB ID: [id number] [employer]- All Rights Reserved Reading location - IP/workstation name: [email or web address]
--- NOTE | 2019-04-23 13:48 | PDOC DISCHARGE SUMMARY ---
Impression - Admit/DC Date/PCP Admission Date/Primary Care Provider: 04/23/19 00:47 ELPIDIO VEGA PA-C Discharge Date: 04/23/19 - Discharge Diagnosis (1) Cervical radiculopathy Is this a current diagnosis for this admission?: Yes (2) Chronic pain Is this a current diagnosis for this admission?: Yes (3) Left arm weakness Is this a current diagnosis for this admission?: Yes (4) Vascular dementia Is this a current diagnosis for this admission?: Yes - Additional Information Resuscitation Status: Full Code Discharge Diet: As Tolerated Discharge Activity: Activity As Tolerated Referrals: ELKE BAKER MD [ASSOCIATE] - 05/15/19 10:40 am (In [place] office.) ANTONINO ANDERS MD [ACTIVE STAFF] - 04/28/19 (Please obtain Echo for evaluation as part of possible TIA work up) Home Medications: Evolocumab [Repatha Syringe] 140 mg SQ [id number] 04/23/19 Fentanyl [Duragesic 25 mcg/hr Transdermal Patch] 25 mcg TD Q3DAYS 04/23/19 Metoprolol Tartrate [Lopressor 50 mg Tablet] 50 mg PO Q12 04/23/19 History of Present Illiness History of Present Illness: RUSSELL LEWIS is a 64 year old male Admitted with left arm numbness and tingling of his left upper extremity. Hospital Course Hospital Course: Patient was admitted overnight. He apparently complained of numbness and tingling of the left upper extremity. There was a questionable slurred speech however patient appears to be at his baseline with his speech. He does have some mild speech impediment which is chronic. He also has a history of cervical radiculopathy and he does have a history of chronic intermittent numbness and tingling which he says is similar to what he had last night. MRI done which reveals no evidence of acute CVA. Echocardiogram will be performed as outpatient. Patient is currently stable. He has no neurological deficit at this different from his baseline. He does have some weakness of the left upper extremity which is felt to be chronic. Acute cerebrovascular accident and transient ischemic attacks have been ruled out Physical Exam Vital Signs: Temp Pulse Resp BP Pulse Ox 98.5 F 48 L 20 133/61 H 99 04/23/19 10:47 04/23/19 10:47 04/23/19 10:47 04/23/19 10:47 04/23/19 10:47 Intake & Output 04/22/19 04/23/19 04/24/19 06:59 06:59 06:59 Intake Total 260 480 Output Total 300 Balance 260 180 Weight 83 kg General appearance: PRESENT: no acute distress, disheveled Head exam: PRESENT: atraumatic Neck exam: ABSENT: carotid bruit, JVD, meningismus, tracheostomy Respiratory exam: PRESENT: clear to auscultation jose enrique, unlabored. ABSENT: accessory muscle use Pulses: PRESENT: normal carotid pulses GI/Abdominal exam: PRESENT: normal bowel sounds, soft. ABSENT: tenderness Rectal exam: PRESENT: deferred Neurological exam: PRESENT: alert, awake, oriented to person, oriented to time, oriented to situation, other - Mild left upper extremity drift and weakness strength 4/5 Skin exam: ABSENT: abrasion Results Laboratory Results: WBC 8.6 10^3/uL (4.0-10.5) 04/22/19 21:43 RBC 5.37 10^6/uL (4.35-5.55) 04/22/19 21:43 Hgb 16.5 g/dL (13.5-17.0) 04/22/19 21:43 Hct 47.4 % (37.9-51.0) 04/22/19 21:43 MCV 88 fl (80-97) 04/22/19 21:43 MCH 30.8 pg (27.0-33.4) 04/22/19 21:43 MCHC 34.9 g/dL (32.0-36.0) 04/22/19 21:43 RDW 13.8 % (11.5-14.0) 04/22/19 21:43 Plt Count 186 10^3/uL (150-450) 04/22/19 21:43 Lymph % (Auto) 29.1 % (13-45) 04/22/19 21:43 [place]ford % (Auto) 6.8 % (3-13) 04/22/19 21:43 Eos % (Auto) 3.3 % (0-6) 04/22/19 21:43 Baso % (Auto) 0.4 % (0-2) 04/22/19 21:43 Absolute Neuts (auto) 5.2 10^3/uL (1.7-8.2) 04/22/19 21:43 Absolute Lymphs (auto) 2.5 10^3/uL (0.5-4.7) 04/22/19 21:43 Absolute Monos (auto) 0.6 10^3/uL (0.1-1.4) 04/22/19 21:43 Absolute Eos (auto) 0.3 10^3/uL (0.0-0.6) 04/22/19 21:43 Absolute Basos (auto) 0.0 10^3/uL (0.0-0.2) 04/22/19 21:43 Seg Neutrophils % 60.4 % (42-78) 04/22/19 21:43 PT 13.3 SEC (11.4-15.4) 04/22/19 21:43 INR 1.01 04/22/19 21:43 APTT 29.1 SEC (23.5-35.8) 04/22/19 21:43 Sodium 139.0 mmol/L (137-145) 04/22/19 21:43 Potassium 3.9 mmol/L (3.6-5.0) 04/22/19 21:43 Chloride 103 mmol/L (98-107) 04/22/19 21:43 Carbon Dioxide 27 mmol/L (22-30) 04/22/19 21:43 Anion Gap 9 (5-19) 04/22/19 21:43 BUN 11 mg/dL (7-20) 04/22/19 21:43 Creatinine 0.96 mg/dL (0.52-1.25) 04/22/19 21:43 Est GFR ( Amer) > 60 (>60) 04/22/19 21:43 Est GFR (MDRD) Non-Af > 60 (>60) 04/22/19 21:43 Glucose 126 mg/dL (75-110) H 04/22/19 21:43 POC Glucose 129 mg/dL (70-110) H 04/23/19 12:02 Calcium 9.2 mg/dL (8.4-10.2) 04/22/19 21:43 Total Bilirubin 1.0 mg/dL (0.2-1.3) 04/22/19 21:43 Direct Bilirubin 0.0 mg/dL (0.0-0.4) 04/22/19 21:43 Neonat Total Bilirubin Not Reportable 04/22/19 21:43 Neonat Direct Bilirubin Not Reportable 04/22/19 21:43 Neonat Indirect Bili Not Reportable 04/22/19 21:43 AST 27 U/L (17-59) 04/22/19 21:43 ALT 14 U/L (<50) 04/22/19 21:43 Alkaline Phosphatase 114 U/L (38-126) 04/22/19 21:43 Creatine Kinase 59 U/L (55-170) 04/22/19 21:43 CK-MB (CK-2) 0.99 ng/mL (<4.55) 04/22/19 21:43 Troponin I < 0.012 ng/mL 04/22/19 21:43 Total Protein 6.7 g/dL (6.3-8.2) 04/22/19 21:43 Albumin 4.1 g/dL (3.5-5.0) 04/22/19 21:43 04/22/19 21:43 CK-MB (CK-2) 0.99 Troponin I < 0.012 Impressions: Chest X-Ray 04/22/19 21:43 IMPRESSION: No acute cardiopulmonary process copyright 2011 [employer]- All Rights Reserved Head CT 04/22/19 21:43 IMPRESSION: No acute intracranial abnormality. I discussed these critical findings with Dr. Bermudez at 2103 hours central time April 22, 2019. Head MRI 04/23/19 00:00 IMPRESSION: NORMAL MRI OF THE BRAIN WITHOUT INTRAVENOUS GADOLINIUM CONTRAST. EVIDENCE OF ACUTE STROKE: NO. Carotid Doppler Study 04/23/19 00:13 IMPRESSION: NO HEMODYNAMICALLY SIGNIFICANT STENOSIS. Plan Plan of Treatment: Patient is to follow-up for an outpatient echocardiogram to complete stroke work-up. Stroke Is this a Stroke Patient?: No Acute Heart Failure - Is this a Heart Failure Patient?: No
--- NOTE | 2019-04-23 19:38 | EKG REPORT ---
SEVERITY:- ABNORMAL ECG - SINUS RHYTHM FIRST DEGREE AV BLOCK BORDERLINE LEFT AXIS DEVIATION CONSIDER ANTERIOR INFARCT : Confirmed by: Reina Chapin MD 23-Apr-2019 19:37:04
[2019-04-23] MEDS ORDERED: ATORVASTATIN CALCIUM 80 MG TABLET PO SCH (22:00)
[2019-04-25] MEDS ORDERED: FENTANYL 25 MCG/HR PATCH.TD72 TD SCH (10:00)
== END 2019-04-23 15:04 | disposition home or self-care (01) ==
LOC: ER 21:39 → EH 04-23 00:47 → 3N 04-23 02:17
PROVIDERS: ADMIT Internal Medicine; ATTEND Internal Medicine
DX: M54.12 Radiculopathy, cervical region (principal); G89.4 Chronic pain syndrome; R53.1 Weakness; F01.50 Vascular dementia, unspecified severity, without behavioral disturbance, psychotic disturbance, mood disturbance, and anxiety; I25.10 Atherosclerotic heart disease of native coronary artery without angina pectoris; E11.40 Type 2 diabetes mellitus with diabetic neuropathy, unspecified; I11.0 Hypertensive heart disease with heart failure; I50.9 Heart failure, unspecified; F11.20 Opioid dependence, uncomplicated; R47.81 Slurred speech; H53.8 Other visual disturbances; T15.00XA Foreign body in cornea, unspecified eye, initial encounter; S00.259A Superficial foreign body of unspecified eyelid and periocular area, initial encounter; X58.XXXA Exposure to other specified factors, initial encounter; I25.2 Old myocardial infarction; Z95.5 Presence of coronary angioplasty implant and graft; Z95.1 Presence of aortocoronary bypass graft; Z87.891 Personal history of nicotine dependence; Z82.49 Family history of ischemic heart disease and other diseases of the circulatory system; Z79.4 Long term (current) use of insulin; Z79.82 Long term (current) use of aspirin; Z86.73 Personal history of transient ischemic attack (TIA), and cerebral infarction without residual deficits
CPT/HCPCS: 93005; 99291; 99292; 36415; 82553; 82962; 82550; 85025; 85610; 85730; 80053; 84484; 93880; 70551; 71045; 70450; 93010; G0378 ×2; J1644

== ENCOUNTER 2019-05-13 20:31 | Emergency (ER) | payer OTHER, MEDICARE ==
[2019-05-13] MEDS ORDERED: NITROGLYCERIN/D5W 50 MG/250 ML RTUINJ IV PRN (20:38)
[2019-05-13] MEDS ORDERED: FENTANYL CITRATE INJ/PF 100 MCG/2 ML AMPUL IV PRN (20:46)
[2019-05-13] MEDS ORDERED: ONDANSETRON HCL INJ/PF 4 MG/2 ML SDV IV ONE (20:46)
--- NOTE | 2019-05-13 20:53 | ER Document Report ---
ED General - General Chief Complaint: Chest Pain Stated Complaint: CHEST PAIN Time Seen by Provider: 05/13/19 20:42 Primary Care Provider: ELPIDIO VEGA PA-C [Primary Care Provider] - Follow up as needed TRAVEL OUTSIDE OF THE [place] 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 Not affected by movement. No associated dyspnea, diaphoresis or vomiting. Patient is unable to say where the character of this pain is similar to his prior ischemic pain. We note that the patient has a history of what is felt to be vascular dementia in addition to his various chronic pain issues. Patient is a very poor histori an. Patient states that he currently lives alone. Additional historical information is obtained from review of old records locally and from EMS. EMS providers obtained a normal EKG in the field. They gave the patient 325 mg of aspirin orally and also started him on a nitroglycerin drip. He comes in on 10 mcg/h. - Related Data Allergies/Adverse Reactions: latex [Latex] Allergy (Verified 04/23/19 08:10) oxycodone [From Percocet] Allergy (Verified 04/23/19 08:10) adhesive tape [Adhesive Tape] Adverse Reaction (Verified 04/23/19 08:10) Past Medical History - General Information source: Patient, Emergency Med Personnel, [facility] Records - Social History Smoking Status: Never Smoker Family History: CAD, DM, Hypertension - Past Medical History Cardiac Medical History: Reports: Hx Congestive Heart Failure, Hx Coronary Artery Disease, Hx Heart Attack - x14, Hx Hypercholesterolemia, Hx Hypertension Pulmonary Medical History: Reports: Hx Pneumonia Endocrine Medical History: Reports: Hx Diabetes Mellitus Type 2 Renal/ Medical History: Denies: Hx Peritoneal Dialysis Psychiatric Medical History: Denies: Hx Depression Past Surgical History: Reports: Hx Cardiac Catheterization - stents X3, Hx Cardiac Surgery - CABG, Hx Coronary Artery Bypass Graft - 3 vessel CABG, Hx Coronary Stent - 5 angioplasties, last 2 stents placed on05/25/, Hx Vascular Surgery - stent in LLE - Immunizations Hx Diphtheria, Pertussis, Tetanus Vaccination: Yes Review of Systems - Review of Systems Notes: Constitutional: Negative for fever. HENT: Negative for sore throat. Eyes: Negative for visual changes. Cardiovascular: As per HPI. Respiratory: Negative for shortness of breath. Gastrointestinal: Negative for abdominal pain, vomiting or diarrhea. Genitourinary: Negative for dysuria. Musculoskeletal: Chronic neck and upper extremity pain. Skin: Negative for rash. Neurological: Negative for headaches, weakness or numbness. 10 point ROS negative except as marked above and in HPI. Physical Exam - Vital signs Vitals: Resp Pulse Ox 15 98 05/13/19 20:36 05/13/19 20:36 - Notes Notes: GENERAL: Male patient appearing approximately stated age who appears mildly uncomfortable. SKIN: Good turgor no rashes. HEAD: Normocephalic atraumatic. EYES: PERRLA. EOMI. Conjunctivae and sclerae clear. EARS: CANALS AND TMS CLEAR. NOSE: CLEAR. MOUTH: Moist mucosa. Good dentition. No stridor or edema. No drooling. NECK: Supple. No masses or thyromegaly. No adenopathy. Carotids 2+ without bruits. No JVD. BACK: Symmetrical without tenderness. CHEST: Healed CABG scar present respirations unlabored. Breath sounds clear and symmetrical. HEART: Pain to palpation over anterior left chest wall which patient says does not exactly reproduces current discomfort. Regular rhythm. No murmur gallop or rub. ABDOMEN: Soft nontender without masses, organomegaly or rebound. Bowel sounds normally active. No bruits. GENITALIA: Deferred. EXTREMITIES: No edema. No calf tenderness. Cap refill less than 1.5 seconds. Dorsalis pedis and posterior tibial pulses 3+ and symmetrical. NEUROLOGICAL: GCS 15. Alert and oriented x3. Normal gait. Fluent speech. Cranial nerves II through XII intact. Sensorimotor and cerebellar normal. Normal tone. PSYCHIATRIC: Flat affect. Course - Re-evaluation Re-evalutation: 05/14/19 05:12 This man has an extensive past coronary history but he also has a history of chronic pain. He described his presenting discomfort as "different" from his previous ischemic pain and he seem to have some reproducibility with palpation. His EKGs are normal here x2. He has had 2 troponins 4 hours apart which are both normal. He is remained pain-free since he arrived here. 05/14/19 05:13 vital signs are currently stable. Patient is very comfortable and requesting discharge home which I feel to be appropriate. - Vital Signs Vital signs: Temp Pulse Resp BP Pulse Ox 12 96/65 L 97 05/14/19 01:46 05/14/19 01:46 05/14/19 01:46 - Laboratory Result Diagrams: 05/13/19 20:02 05/13/19 20:02 Laboratory results interpreted by me: 05/13/19 05/13/19 20:02 20:02 Magnesium 2.4 H NT-Pro-B Natriuret Pep 258 H Discharge - Discharge Clinical Impression: Chronic pain syndrome Chest pain Qualifiers: Chest pain type: unspecified Qualified Code(s): R07.9 - Chest pain, unspecified Condition: Stable Disposition: HOME, SELF-CARE Additional Instructions: Continue current medications. Return here as needed for new or worsening sym ptoms. Follow-up with your primary care provider. Do not smoke. Referrals: ELPIDIO VEGA PA-C [Primary Care Provider] - Follow up as needed
[2019-05-13 21:02] LABS: ABSOLUTE EOSINOPHILS # (AUTO) 0.2 10^3/uL (0.0-0.6); ABSOLUTE LYMPHOCYTES (AUTO) 2.3 10^3/uL (0.5-4.7); ABSOLUTE MONOCYTES (AUTO) 0.7 10^3/uL (0.1-1.4); ABSOLUTE NEUT (AUTO) 5.4 10^3/uL (1.7-8.2); BASOPHILS % (AUTO) 0.4 % (0-2); EOSINOPHILS % (AUTO) 2.6 % (0-6); HEMATOCRIT 48.7 % (37.9-51.0); HEMOGLOBIN 16.8 g/dL (13.5-17.0); LYMPHOCYTES % (AUTO) 26.5 % (13-45); MEAN CORPUSCULAR HEMOGLOBIN 30.7 pg (27.0-33.4); MEAN CORPUSCULAR HGB CONC 34.5 g/dL (32.0-36.0); MEAN CORPUSCULAR VOLUME 89 fl (80-97); MONOCYTES % (AUTO) 7.7 % (3-13); PLATELET COUNT 182 10^3/uL (150-450); RED BLOOD COUNT 5.48 10^6/uL (4.35-5.55); RED CELL DISTRIBUTION WIDTH 13.7 % (11.5-14.0); SEGMENTED NEUTROPHILS % (AUTO) 62.8 % (42-78); TOTAL CELLS COUNTED % (AUTO) 100 %; WHITE BLOOD COUNT 8.5 10^3/uL (4.0-10.5)
[2019-05-13 21:03] LABS: INTERNATIONAL RATION (INR) 1.02; PROTHROMBIN TIME 13.4 SEC (11.4-15.4)
[2019-05-13 21:04] LABS: PARTIAL THROMBOPLASTIN TIME 27.5 SEC (23.5-35.8)
[2019-05-13 21:22] LABS: ALBUMIN 4.3 g/dL (3.5-5.0); ALKALINE PHOSPHATASE 96 U/L (38-126); ANION GAP 12 (5-19); ASPARTATE AMINO TRANSFERASE 27 U/L (17-59); BILIRUBIN,DIRECT 0.2 mg/dL (0.0-0.4); BILIRUBIN,TOTAL 0.8 mg/dL (0.2-1.3); BLOOD UREA NITROGEN 13 mg/dL (7-20); CALCIUM 9.1 mg/dL (8.4-10.2); CARBON DIOXIDE 29 mmol/L (22-30); CHLORIDE 99 mmol/L (98-107); GLUCOSE 101 mg/dL (75-110); TOTAL PROTEIN 7.3 g/dL (6.3-8.2)
[2019-05-13 21:33] LABS: NT PRO BNP 258 pg/mL (<125)
[2019-05-13 21:37] LABS: TROPONIN I < 0.012 ng/mL
--- NOTE | 2019-05-13 22:22 | RADIOLOGY REPORT (SQ) ---
EXAM DESCRIPTION: XR CHEST 1 VIEW COMPLETED DATE/TME: 05/13/2019 20:45 CLINICAL HISTORY: 64 years, Male, cp COMPARISON: X-ray chest 04/22/2019 NUMBER OF VIEWS: TECHNIQUE: LIMITATIONS: None. FINDINGS: No evidence of pulmonary infiltrate or pleural effusion. The heart is top normal to mildly enlarged. There is evidence of prior coronary artery bypass surgery. Pulmonary vascularity appears normal. There is no significant change, as compared with the prior x-ray(s). IMPRESSION: No acute finding. copyright 2010 [facility]- All Rights Reserved
--- NOTE | 2019-05-13 22:57 | EKG REPORT ---
SEVERITY:- ABNORMAL ECG - SINUS OR ECTOPIC ATRIAL RHYTHM BORDERLINE LEFT AXIS DEVIATION ABNRM R PROG, CONSIDER ASMI OR LEAD PLACEMENT : Confirmed by: Reina Chapin MD 13-May-2019 22:57:15
[2019-05-13] MEDS ORDERED: NITROGLYCERIN 10 MG (0.4 MG/HR) PATCH.TD24 TD ONE (23:27)
[2019-05-14 05:51] VITALS: BP 105/67
--- NOTE | 2019-05-14 19:43 | EKG REPORT ---
SEVERITY:- ABNORMAL ECG - SINUS RHYTHM FIRST DEGREE AV BLOCK PROBABLE INFERIOR INFARCT, AGE INDETERMINATE : Confirmed by: Reina Chapin MD 14-May-2019 19:42:27
== END 2019-05-14 06:17 | disposition home or self-care (01) ==
LOC: ER 20:31
DX: G89.4 Chronic pain syndrome (principal); R07.9 Chest pain, unspecified; M54.2 Cervicalgia; M79.603 Pain in arm, unspecified; I25.10 Atherosclerotic heart disease of native coronary artery without angina pectoris; I50.9 Heart failure, unspecified; I11.0 Hypertensive heart disease with heart failure; E11.9 Type 2 diabetes mellitus without complications; Z95.1 Presence of aortocoronary bypass graft; Z79.899 Other long term (current) drug therapy; Z98.890 Other specified postprocedural states; Z88.8 Allergy status to other drugs, medicaments and biological substances
CPT/HCPCS: 93005 ×2; 99285; 96375; 96365; 96366; 36415; 83735; 85025; 85610; 85730; 80053; 84484; 83880; 71045; 93010 ×2; J3010; J3490 ×2; J2405

== ENCOUNTER 2019-05-22 13:34 | Emergency (ER) | payer OTHER, MEDICARE ==
[2019-05-22] MEDS ORDERED: MECLIZINE HCL 25 MG TABLET PO ONE (14:54)
[2019-05-22] MEDS ORDERED: METOCLOPRAMIDE HCL INJ/PF 10 MG/2 ML SDV IV ONE (14:54)
[2019-05-22] MEDS ORDERED: NORMAL SALINE 1000 ML 1,000 ML IV ONE (15:58)
[2019-05-22 16:02] LABS: ABSOLUTE EOSINOPHILS # (AUTO) 0.1 10^3/uL (0.0-0.6); ABSOLUTE LYMPHOCYTES (AUTO) 1.3 10^3/uL (0.5-4.7); ABSOLUTE MONOCYTES (AUTO) 0.4 10^3/uL (0.1-1.4); ABSOLUTE NEUT (AUTO) 6.6 10^3/uL (1.7-8.2); BASOPHILS % (AUTO) 0.1 % (0-2); EOSINOPHILS % (AUTO) 1.4 % (0-6); HEMOGLOBIN 19.2 g/dL (13.5-17.0); MEAN CORPUSCULAR HEMOGLOBIN 30.4 pg (27.0-33.4); MEAN CORPUSCULAR HGB CONC 33.6 g/dL (32.0-36.0); MEAN CORPUSCULAR VOLUME 90 fl (80-97); MONOCYTES % (AUTO) 4.9 % (3-13); PLATELET COUNT 228 10^3/uL (150-450); SEGMENTED NEUTROPHILS % (AUTO) 78.6 % (42-78); TOTAL CELLS COUNTED % (AUTO) 100 %; WHITE BLOOD COUNT 8.4 10^3/uL (4.0-10.5)
[2019-05-22 16:08] LABS: ALBUMIN 5.3 g/dL (3.5-5.0); ALKALINE PHOSPHATASE 123 U/L (38-126); ANION GAP 14 (5-19); ASPARTATE AMINO TRANSFERASE 33 U/L (17-59); BILIRUBIN,DIRECT 0.3 mg/dL (0.0-0.4); BILIRUBIN,TOTAL 1.2 mg/dL (0.2-1.3); BLOOD UREA NITROGEN 11 mg/dL (7-20); CALCIUM 9.9 mg/dL (8.4-10.2); CARBON DIOXIDE 27 mmol/L (22-30); CHLORIDE 98 mmol/L (98-107); GLUCOSE 119 mg/dL (75-110); POTASSIUM 4.4 mmol/L (3.6-5.0); TOTAL PROTEIN 8.4 g/dL (6.3-8.2)
--- NOTE | 2019-05-22 16:33 | RADIOLOGY REPORT (SQ) ---
EXAM DESCRIPTION: CT HEAD WITHOUT COMPLETED DATE/TIME: 05/22/2019 4:18 pm REASON FOR STUDY: dizziness COMPARISON: 04/23/2019. TECHNIQUE: Axial images acquired through the brain without intravenous contrast. Images reviewed wi th bone, brain and subdural windows. Additional sagittal and coronal reconstructions were generated. Images stored on PACS. All CT scanners at this facility use dose modulation, iterative reconstruction, and/or weight based d osing when appropriate to reduce radiation dose to as low as reasonably achievable (ALARA). [facility]: Dose Right [facility]: CareDose [facility]: Dose Right [facility]: Teradose 4D [facility]: [employer] RADIATION DOSE: CT Rad equipment meets quality standard of care and radiation dose reduction techniq ues were employed. CTDIvol: 53.2 mGy. DLP: 1017 mGy-cm. mGy. LIMITATIONS: None. FINDINGS: VENTRICLES: Normal size and contour. CEREBRUM: No masses. No hemorrhage. No midline shift. No evidence for acute infarction. Normal gra y/white matter differentiation. No areas of low density in the white matter. CEREBELLUM: No masses. No hemorrhage. No alteration of density. No evidence for acute infarction. EXTRAAXIAL SPACES: No fluid collections. No masses. ORBITS AND GLOBE: No intra- or extraconal masses. Normal contour of globe without masses. CALVARIUM: No fracture. PARANASAL SINUSES: No fluid or mucosal thickening. SOFT TISSUES: No mass or hematoma. OTHER: No other significant finding. IMPRESSION: NO ACUTE INTRACRANIAL IMAGING FINDINGS. EVIDENCE OF ACUTE STROKE: NO. COMMENT: Quality ID # [id number]: Final reports with documentation of one or more dose reduction techniques (e.g., Automated exposure control, adjustment of the mA and/or kV according to patient size, use of iterative reconstruction technique) TECHNICAL DOCUMENTATION: JOB ID: [id number] 2010 [employer]- All Rights Reserved Reading location - IP/workstation name: [email or web address] LICENSE OF [facility]-RR
[2019-05-22 17:03] VITALS: BP 141/88
--- NOTE | 2019-05-22 17:16 | ER Document Report ---
Entered by OSCAR REYNOLDS SCRIBE 05/22/19 1534 Acting as scribe for:RUBIO SCOTT MD ED Headache - General Chief Complaint: Headache Stated Complaint: HEADACHE Time Seen by Provider: 05/22/19 14:45 Primary Care Provider: ELPIDIO VEGA PA-C [Primary Care Provider] - Follow up as needed Mode of Arrival: Ambulatory Information source: Patient Notes: Patient is a 64 year old male that presents to the emergency department today with complaints of elevated blood pressures the last several weeks along with a headache. Patient had a CT and MRI of his brain for the last week which he states was normal. Patient states he has chronic neck pain and is in pain management. Patient states his iso coordinator will not clear him for neck surgery so he has not been operated for the chronic neck pain. Patient complains of some dizziness today as well. Patient states that none of his symptoms today are new or changed since the head CT/MRI. TRAVEL OUTSIDE OF THE [place] IN LAST 30 DAYS: No - Related Data Allergies/Adverse Reactions: latex [Latex] Allergy (Verified 04/23/19 08:10) oxycodone [From Percocet] Allergy (Verified 04/23/19 08:10) adhesive tape [Adhesive Tape] Adverse Reaction (Verified 04/23/19 08:10) Past Medical History - General Information source: Patient, [facility], 1928–1983 Records - Social History Smoking Status: Former Smoker Cigarette use (# per day): No Frequency of alcohol use: None Drug Abuse: None Lives with: Family Family History: Reviewed & Not Pertinent, CAD, DM, Hypertension - Past Medical History Cardiac Medical History: Reports: Hx Congestive Heart Failure, Hx Coronary Artery Disease, Hx Heart Attack - x14, Hx Hypercholesterolemia, Hx Hypertension Pulmonary Medical History: Reports: Hx Pneumonia Endocrine Medical History: Reports: Hx Diabetes Mellitus Type 2 Past Surgical History: Reports: Hx Cardiac Catheterization - stents X3, Hx Cardiac Surgery - CABG, Hx Coronary Artery Bypass Graft - 3 vessel CABG, Hx Coronary Stent - 5 angioplasties, last 2 stents placed on05/25/, Hx Vascular Surgery - stent in LLE - Immunizations Hx Diphtheria, Pertussis, Tetanus Vaccination: Yes Review of Systems - Review of Systems Constitutional: No symptoms reported EENT: No symptoms reported Cardiovascular: See HPI, Dizziness Respiratory: No symptoms reported Gastrointestinal: No symptoms reported Genitourinary: No symptoms reported Male Genitourinary: No symptoms reported Musculoskeletal: No symptoms reported Skin: No symptoms reported Hematologic/Lymphatic: No symptoms reported Neurological/Psychological: See HPI, Headaches -: Yes All other systems reviewed and negative Physical Exam - Vital signs Vitals: Resp Pulse Ox 12 98 05/22/19 14:16 05/22/19 14:16 - Notes Notes: Physical Exam: General: Alert, appears well. HEENT: Normocephalic. Atraumatic. PERRL. Extraocular movements intact. Jose Ramon pharynx clear. TMs are [place] in color bilaterally with serous effusions. Neck: Supple. Non-tender. Respiratory: No respiratory distress. Clear and equal breath sounds bilaterally. Cardiovascular: Regular rate and rhythm. Abdominal: Normal Inspection. Non-tender. No distension. Normal Bowel Sounds. Back: No gross abnormalities. Extremities: Moves all four extremities. Upper extremities: Normal inspection. Normal ROM. Lower extremities: Normal inspection. No edema. Normal ROM. Neurological: Normal cognition. AAOx4. Normal speech. GCS of 15, cranial nerves II through XII grossly intact bilaterally. Psychological: Normal affect. Normal Mood. Skin: Warm. Dry. Normal color. Course - Re-evaluation Re-evalutation: 05/22/19 17:09 Discussed case with hospitalist, Dr. Pham, regarding polycythemia with a hem oglobin of 19 hematocrit 57 and a total red blood cell count of 6.3. Hospitalist opinion was the patient could be worked up as an outpatient versus admission to the hospital. - Vital Signs Vital signs: Temp Pulse Resp BP Pulse Ox 16 141/88 H 100 05/22/19 17:00 05/22/19 16:00 05/22/19 17:00 - Laboratory Result Diagrams: 05/22/19 13:08 05/22/19 13:08 Laboratory results interpreted by me: 05/22/19 05/22/19 13:08 13:08 RBC 6.30 H Hgb 19.2 H Hct 57.0 H Seg Neutrophils % 78.6 H Glucose 119 H Total Protein 8.4 H Albumin 5.3 H 05/22/19 17:07 Patient has a polycythemia of hemoglobin of 19 and a hematocrit of 57 with a red blood cell count 6.3. Patient has normal white count normal platelets and normal BUN/creatinine. Discussed case regarding potential admission to the hospital to receive IV fluids and to further evaluate his polycythemia. Hospitalist opinion is that patient can be discharged home and worked up as an outpatient with the hematology referral to Dr. Lawson - Diagnostic Test Radiology reviewed: Image reviewed, Reports reviewed Radiology results interpreted by me: 05/22/19 17:07 CT of head shows no acute process. No evidence for stroke. - EKG Interpretation by Me Additional EKG results interpreted by me: 05/22/19 17:08 Twelve-lead EKG shows a normal sinus bradycardia rate of 59 first-degree AV block inferior infarct age indeterminate and abnormal R wave progression. Discharge - Discharge Clinical Impression: Headache, Polycythemia vera, acquired Disposition: HOME, SELF-CARE Instructions: Headache ([facility]) Additional Instructions: Polycythemia We have found a higher than normal count of red blood cells. When the blood is thick with extra red cells, we call it "polycythemia." Blood cells are created in your bone marrow. In polycythemia, the marrow is over-active, making extra blood cells. Polycythemia can be a reaction to low oxygen in your blood, as occurs with chronic bronchitis or sleep apnea. Sometimes no clear cause is f ound. Polycythemia can be dangerous, because the thickened blood clots more easily. There's a higher risk of stroke, heart attack, and blood clots. The best treatment for polycythemia is to treat the underlying cause. For example, treating lung disease to increase the blood oxygen may lower the count of red blood cells. If it's not possible to eliminate the cause of polycythemia, you may be treated by removing some of your blood from time to time. This lowers the count of red cells and makes the blood thinner. Call your doctor or return if you have chest pain or new shortness of breath, or symptoms of a stroke such as memory problems, severe headache, vomiting, severe dizziness, weakness or numbness, double vision, a seizure, or problems with balance or coordination. You are recommended follow-up with Dr. Lawson who is a lawyer probate who will assist in diagnosing and further evaluating your elevated red blood cell counts. Referrals: ELPIDIO VEGA PA-C [Primary Care Provider] - Follow up as needed ELIDIA TOWNSEND MD [ACTIVE STAFF] - Follow up as needed I personally performed the services described in the documentation, reviewed and edited the documentation which was dictated to the scribe in my presence, and it accurately records my words and actions.
--- NOTE | 2019-05-22 18:11 | EKG REPORT ---
SEVERITY:- ABNORMAL ECG - SINUS OR ECTOPIC ATRIAL RHYTHM FIRST DEGREE AV BLOCK INFERIOR INFARCT, AGE INDETERMINATE ABNRM R PROG, CONSIDER ASMI OR LEAD PLACEMENT : Confirmed by: Tunde Odonnell MD 22-May-2019 18:10:30
== END 2019-05-22 17:47 | disposition home or self-care (01) ==
LOC: ER 13:34
DX: D45 Polycythemia vera (principal); R51 Headache; M54.2 Cervicalgia; G89.29 Other chronic pain; Z79.899 Other long term (current) drug therapy; Z87.891 Personal history of nicotine dependence; I50.9 Heart failure, unspecified; I25.10 Atherosclerotic heart disease of native coronary artery without angina pectoris; I25.2 Old myocardial infarction; I11.0 Hypertensive heart disease with heart failure; E11.9 Type 2 diabetes mellitus without complications
CPT/HCPCS: 93005; 99284; 96361; 96374; 36415; 85025; 80053; 70450; 93010; J2765; J7030

== ENCOUNTER → 2019-06-25 | Outpatient (CLI) | payer OTHER ==
[2019-06-25 11:00] LABS: ARTERIAL BLOOD BASE EXCESS 0.9 mmol/L; ARTERIAL BLOOD H2CO3 1.17 mmol/L (1.05-1.35); ARTERIAL BLOOD HCO3 25.1 mmol/L (20-24); ARTERIAL BLOOD O2 SATURATION 97.3 % (94-98); ARTERIAL BLOOD PCO2 38.9 mmHg (35-45); ARTERIAL BLOOD PH 7.43 (7.35-7.45); ARTERIAL BLOOD PO2 93.3 mmHg (80-100); ARTERIAL BLOOD TOTAL CO2 26.3 mmol/L (23-27)
[2019-06-25 11:13] LABS: ARTERIAL BLOOD FIO2 ROOM AIR
== END ==
LOC: OD 10:20
PROVIDERS: ATTEND Internal Medicine Hematology & Oncology
DX: R71.8 Other abnormality of red blood cells (principal)
CPT/HCPCS: 82803

== ENCOUNTER 2019-08-22 14:49 | Emergency (ER) | payer MEDICARE, OTHER ==
--- NOTE | 2019-08-22 15:24 | ER Document Report ---
ED Medical Screen (RME) - General Chief Complaint: Dizziness Stated Complaint: DIZZINESS Time Seen by Provider: 08/22/19 15:23 Primary Care Provider: ELIDIA TOWNSEND MD [Primary Care Provider] - Follow up as needed Notes: This 64-year-old male who presented emergency room today stating he had gotten dizzy previously today and had a near syncopal episode. He has states he has no chest pain no shortness of breath no exertional chest pain or exertional shortness of breath. I greeted and performed a rapid initial assessment of this patient. Comprehensive ED assessment and evaluation of the patient, analysis of test results and completion of the medical decision making process will be conducted by additional ED providers. TRAVEL OUTSIDE OF THE [place] IN LAST 30 DAYS: No - Related Data Allergies/Adverse Reactions: latex [Latex] Allergy (Verified 08/22/19 15:20) oxycodone [From Percocet] Allergy (Verified 08/22/19 15:20) adhesive tape [Adhesive Tape] Adverse Reaction (Verified 08/22/19 15:20) Past Medical History - Social History Chew tobacco use (# tins/day): No Frequency of alcohol use: None Drug Abuse: None - Past Medical History Cardiac Medical History: Reports: Hx Congestive Heart Failure, Hx Coronary Artery Disease, Hx Heart Attack - x14, Hx Hypercholesterolemia, Hx Hypertension Pulmonary Medical History: Reports: Hx Pneumonia Endocrine Medical History: Reports: Hx Diabetes Mellitus Type 2 Renal/ Medical History: Denies: Hx Peritoneal Dialysis Psychiatric Medical History: Denies: Hx Depression Past Surgical History: Reports: Hx Cardiac Catheterization - stents X3, Hx Cardiac Surgery - CABG, Hx Coronary Artery Bypass Graft - 3 vessel CABG, Hx Coronary Stent - 5 angioplasties, last 2 stents placed on05/25/, Hx Vascular Surgery - stent in LLE - Immunizations Hx Diphtheria, Pertussis, Tetanus Vaccination: Yes Physical Exam - Vital signs Vitals: Temp Pulse Resp BP Pulse Ox 98.4 F 72 16 137/77 H 97 08/22/19 15:04 08/22/19 15:04 08/22/19 15:04 08/22/19 15:04 08/22/19 15:04 Course - Vital Signs Vital signs: Temp Pulse Resp BP Pulse Ox 98.4 F 72 16 137/77 H 97 08/22/19 15:20 08/22/19 15:04 08/22/19 15:04 08/22/19 15:04 08/22/19 15:04 Doctor's Discharge - Discharge Referrals: ELIDIA TOWNSEND MD [Primary Care Provider] - Follow up as needed
[2019-08-22 15:56] LABS: ABSOLUTE EOSINOPHILS # (AUTO) 0.1 10^3/uL (0.0-0.6); ABSOLUTE LYMPHOCYTES (AUTO) 0.9 10^3/uL (0.5-4.7); ABSOLUTE MONOCYTES (AUTO) 0.3 10^3/uL (0.1-1.4); ABSOLUTE NEUT (AUTO) 7.1 10^3/uL (1.7-8.2); BASOPHILS % (AUTO) 0.2 % (0-2); EOSINOPHILS % (AUTO) 1.2 % (0-6); HEMATOCRIT 42.6 % (37.9-51.0); HEMOGLOBIN 14.9 g/dL (13.5-17.0); LYMPHOCYTES % (AUTO) 10.9 % (13-45); MEAN CORPUSCULAR HEMOGLOBIN 30.6 pg (27.0-33.4); MEAN CORPUSCULAR VOLUME 88 fl (80-97); MONOCYTES % (AUTO) 3.6 % (3-13); PLATELET COUNT 196 10^3/uL (150-450); RED BLOOD COUNT 4.86 10^6/uL (4.35-5.55); SEGMENTED NEUTROPHILS % (AUTO) 84.1 % (42-78); TOTAL CELLS COUNTED % (AUTO) 100 %; WHITE BLOOD COUNT 8.5 10^3/uL (4.0-10.5)
[2019-08-22 16:15] LABS: ALBUMIN 4.5 g/dL (3.5-5.0); ALKALINE PHOSPHATASE 113 U/L (38-126); ANION GAP 11 (5-19); ASPARTATE AMINO TRANSFERASE 27 U/L (17-59); BILIRUBIN,TOTAL 0.6 mg/dL (0.2-1.3); BLOOD UREA NITROGEN 10 mg/dL (7-20); CALCIUM 9.4 mg/dL (8.4-10.2); CARBON DIOXIDE 26 mmol/L (22-30); CHLORIDE 99 mmol/L (98-107); GLUCOSE 157 mg/dL (75-110); POTASSIUM 4.1 mmol/L (3.6-5.0); TOTAL PROTEIN 7.2 g/dL (6.3-8.2)
--- NOTE | 2019-08-22 16:32 | RADIOLOGY REPORT (SQ) ---
EXAM DESCRIPTION: CHEST SINGLE VIEW IMAGES COMPLETED DATE/TIME: 08/22/2019 4:21 pm REASON FOR STUDY: pain sp fall COMPARISON: Chest radiographs 05/13/2019. EXAM PARAMETERS: NUMBER OF VIEWS: One view. TECHNIQUE: Single frontal radiographic view of the chest acquired. RADIATION DOSE: NA LIMITATIONS: None. FINDINGS: LUNGS AND PLEURA: No opacities, masses or pneumothorax. No pleural effusion. MEDIASTINUM AND HILAR STRUCTURES: Normal cardiomediastinal contour. HEART AND VASCULAR STRUCTURES: Postsurgical changes of CABG. Unchanged cardiac prominence. BONES: No identifiable displaced rib fracture. HARDWARE: Intact median sternotomy wires. OTHER: No other significant finding. IMPRESSION: No acute pulmonary findings. No identifiable displaced rib fracture. TECHNICAL DOCUMENTATION: JOB ID: [id number] 2010 [employer]- All Rights Reserved Reading location - IP/workstation name: [email or web address]
[2019-08-22] MEDS ORDERED: MECLIZINE HCL 25 MG TABLET PO ONE (18:35)
[2019-08-22] MEDS ORDERED: ONDANSETRON 4 MG TAB.RAPDIS PO ONE (18:35)
[2019-08-22] MEDS ORDERED: BUTALB/ACETAMINOPHEN/CAFFEINE 1 TAB EACH PO ONE (18:36)
--- NOTE | 2019-08-22 18:46 | ER Document Report ---
ED Dizziness/Weakness - General Chief Complaint: Dizziness Stated Complaint: DIZZINESS Time Seen by Provider: 08/22/19 15:23 Primary Care Provider: ELPIDIO VEGA PA-C [Primary Care Provider] - Follow up as needed ELIDIA TOWNSEND MD [ACTIVE STAFF] - Follow up as needed Mode of Arrival: Ambulatory Information source: Patient Notes: Patient presents today stating that he developed vertigo around 11 AM. Patient states that he had loss of balance that caused him to almost fall. Patient states that he has had vertigo in the past and it has presented similarly. Lynette noel does state that he has a frontal headache pain that he rates at about 3 out of 5 scale at this time. Patient reports nausea without any emesis. No fever. Patient denies any chest pain or shortness of breath. TRAVEL OUTSIDE OF THE [place] IN LAST 30 DAYS: No - HPI Patient complains to provider of: Vertigo Onset: This morning Onset/Duration: Gradual Quality of pain: Pressure Pain Level: 3 Context: Vertigo Associated symptoms: Headache, Nausea, Sweating, Vertigo. denies: Vomiting Exacerbated by: Change in position Baseline gait: Walks w/o assistance - Related Data Allergies/Adverse Reactions: latex [Latex] Allergy (Verified 08/22/19 15:20) oxycodone [From Percocet] Allergy (Verified 08/22/19 15:20) adhesive tape [Adhesive Tape] Adverse Reaction (Verified 08/22/19 15:20) Past Medical History - General Information source: Patient - Social History Smoking Status: Never Smoker Chew tobacco use (# tins/day): No Frequency of alcohol use: None Drug Abuse: None Lives with: Family Family History: Reviewed & Not Pertinent, CAD, DM, Hypertension Patient has homicidal ideation: No - Medical History Medical History: Other - Polycythemia vera - Past Medical History Cardiac Medical History: Reports: Hx Congestive Heart Failure, Hx Coronary Danyelle ry Disease, Hx Heart Attack - x14, Hx Hypercholesterolemia, Hx Hypertension Pulmonary Medical History: Reports: Hx Pneumonia Endocrine Medical History: Reports: Hx Diabetes Mellitus Type 2 Renal/ Medical History: Denies: Hx Peritoneal Dialysis Psychiatric Medical History: Denies: Hx Depression Past Surgical History: Reports: Hx Cardiac Catheterization - stents X3, Hx C ardiac Surgery - CABG, Hx Coronary Artery Bypass Graft - 3 vessel CABG, Hx Coronary Stent - 5 angioplasties, last 2 stents placed on, Hx Vascular Surgery - stent in LLE - Immunizations Hx Diphtheria, Pertussis, Tetanus Vaccination: Yes Review of Systems - Review of Systems Constitutional: No symptoms reported. denies: Fever EENT: No symptoms reported. denies: Nose pain, Nose congestion Cardiovascular: Dizziness. denies: Chest pain Respiratory: No symptoms reported. denies: Cough, Short of breath Gastrointestinal: Nausea. denies: Vomiting Genitourinary: No symptoms reported Male Genitourinary: No symptoms reported Musculoskeletal: No symptoms reported. denies: Back pain, Neck pain Skin: No symptoms reported Hematologic/Lymphatic: No symptoms reported Neurological/Psychological: Headaches Physical Exam - Vital signs Vitals: Pulse Resp BP Pulse Ox 70 18 140/78 H 98 08/22/19 14:49 08/22/19 14:49 08/22/19 14:49 08/22/19 14:49 - General General appearance: Appears well, Alert In distress: None - HEENT Head: Normocephalic, Atraumatic Eyes: Normal Conjunctiva: Normal Extraocular movements intact: Yes Pupils: PERRL Nasal: Normal Mouth/Lips: Normal Mucous membranes: Normal Neck: Normal, Supple. No: Lymphadenopathy - Respiratory Respiratory status: No respiratory distress Chest status: Nontender Breath sounds: Normal. No: Rales, Rhonchi, Stridor, Wheezing Chest palpation: Normal - Cardiovascular Rhythm: Regular Heart sounds: S1 appreciated, S2 appreciated Murmur: No - Back Back: Normal, Nontender - Extremities General upper extremity: Normal inspection, Normal strength General lower extremity: Normal inspection, Normal strength - Neurological Neuro grossly intact: Yes Cognition: Normal Sherborn Coma Scale Eye Opening: Spontaneous Sherborn Coma Scale Verbal: Oriented Sherborn Coma Scale Motor: Obeys Commands Sherborn Coma Scale Total: 15 Speech: Normal. No: Dysarthria Cranial nerves: Normal. No: Facial palsy, Tongue deviation Cerebellar coordination: Normal, Heel-mcconnell, Finger-nose rhombey, Rapid alt. movements. No: Gait ataxia Motor strength normal: LUE, RUE, LLE, RLE - Psychological Associated symptoms: Normal affect, Normal mood - Skin Skin Temperature: Warm Skin Moisture: Dry Skin Color: Normal Course - Re-evaluation Re-evalutation: 08/22/19 19:49 Patient reports that headache is resolved as well as the dizziness. Patient without any, shortness of breath nausea or vomiting. Patient denies any complaints at this time. CT scan reviewed, no acute findings. Patient without any significant findings on diagnostic evaluation here today. The patient presents with headache without signs of BRIM SHAPER bleed, stroke, infection, or other serious etiology. The patient is neurologically intact. Given the extremely low risk of these diagnoses further testing and evaluation for these possibilities does not appear to be indicated at this time. The patient has been instructed to return if the symptoms worsen or change in any way. - Vital Signs Vital signs: Temp Pulse Resp BP Pulse Ox 98.4 F 70 20 136/68 H 100 08/22/19 15:20 08/22/19 20:01 08/22/19 20:01 08/22/19 20:01 08/22/19 20:01 - Laboratory Result Diagrams: 08/22/19 15:40 08/22/19 15:40 Laboratory results interpreted by me: 08/22/19 08/22/19 15:40 15:40 Lymph % (Auto) 10.9 L Seg Neutrophils % 84.1 H Sodium 135.6 L Glucose 157 H 08/22/19 19:51 Labs- All tests 24 hr 08/22/19 08/22/19 08/22/19 15:40 15:40 15:40 WBC 8.5 RBC 4.86 Hgb 14.9 Hct 42.6 MCV 88 MCH 30.6 MCHC 35.0 RDW 13.0 Plt Count 196 Lymph % (Auto) 10.9 L [place] % (Auto) 3.6 Eos % (Auto) 1.2 Baso % (Auto) 0.2 Absolute Neuts (auto) 7.1 Absolute Lymphs (auto) 0.9 Absolute Monos (auto) 0.3 Absolute Eos (auto) 0.1 Absolute Basos (auto) 0.0 Seg Neutrophils % 84.1 H Sodium 135.6 L Potassium 4.1 Chloride 99 Carbon Dioxide 26 Anion Gap 11 BUN 10 Creatinine 0.77 Est GFR ( Amer) > 60 Est GFR (MDRD) Non-Af > 60 Glucose 157 H Calcium 9.4 Total Bilirubin 0.6 Direct Bilirubin 0.0 Neonat Total Bilirubin Not Reportable Neonat Direct Bilirubin Not Reportable Neonat Indirect Bili Not Reportable AST 27 ALT 16 Alkaline Phosphatase 113 Troponin I < 0.012 Total Protein 7.2 Albumin 4.5 - Diagnostic Test Radiology reviewed: Reports reviewed Discharge - Discharge Clinical Impression: Vertigo Headache Qualifiers: Headache type: unspecified Headache chronicity pattern: acute headache Intractability: not intractable Qualified Code(s): R51 - Headache Condition: Stable Disposition: HOME, SELF-CARE Instructions: Antinausea Medication ([facility]), Headache ([facility]), Meclizine ([facility]), Vertigo ([facility]) Additional Instructions: Return immediately for any new or worsening symptoms Followup with your primary care provider, call tomorrow to make a followup appointment Prescriptions: Meclizine HCl [Antivert 25 mg Tablet] 25 mg PO ASDIR PRN #15 tablet PRN Reason: Ondansetron [Zofran Odt 4 mg Tablet] 1 tab PO Q6H #15 tab.rapdis Referrals: ELPIDIO VEGA PA-C [Primary Care Provider] - Follow up as needed ELIDIA TOWNSEND MD [ACTIVE STAFF] - Follow up as needed
--- NOTE | 2019-08-22 19:45 | RADIOLOGY REPORT (SQ) ---
EXAM DESCRIPTION: CT HEAD WITHOUT IMAGES COMPLETED DATE/TIME: 08/22/2019 7:27 pm REASON FOR STUDY: GRAHAM, dizzy COMPARISON: CT head 05/22/2019 TECHNIQUE: Axial images acquired through the brain without intravenous contrast. Images reviewed wi th bone, brain and subdural windows. Additional sagittal and coronal reconstructions were generated. Images stored on PACS. All CT scanners at this facility use dose modulation, iterative reconstruction, and/or weight based d osing when appropriate to reduce radiation dose to as low as reasonably achievable (ALARA). [facility]: Dose Right [facility]: CareDose [facility]: Dose Right [facility]: Teradose 4D [facility]: CloudDock RADIATION DOSE: CT Rad equipment meets quality standard of care and radiation dose reduction techniq ues were employed. CTDIvol: 53.2 mGy. DLP: 964 mGy-cm. mGy. LIMITATIONS: None. FINDINGS: VENTRICLES: Normal size and contour. CEREBRUM: No masses. No hemorrhage. No midline shift. No evidence for acute infarction. Normal gra y/white matter differentiation. No areas of low density in the white matter. CEREBELLUM: No masses. No hemorrhage. No alteration of density. No evidence for acute infarction. EXTRAAXIAL SPACES: No fluid collections. No masses. ORBITS AND GLOBE: No intra- or extraconal masses. Normal contour of globe without masses. CALVARIUM: No fracture. PARANASAL SINUSES: No fluid or mucosal thickening. SOFT TISSUES: No mass or hematoma. OTHER: No other significant finding. IMPRESSION: NO ACUTE INTRACRANIAL IMAGING FINDINGS. EVIDENCE OF ACUTE STROKE: NO. COMMENT: Quality ID # [id number]: Final reports with documentation of one or more dose reduction techniques (e.g., Automated exposure control, adjustment of the mA and/or kV according to patient size, use of iterative reconstruction technique) TECHNICAL DOCUMENTATION: JOB ID: [id number] 2010 [employer]- All Rights Reserved Reading location - IP/workstation name: [email or web address]
[2019-08-22 20:01] VITALS: BP 136/68
--- NOTE | 2019-08-22 20:51 | EKG REPORT ---
SEVERITY:- BORDERLINE ECG - SINUS OR ECTOPIC ATRIAL RHYTHM BORDERLINE LEFT AXIS DEVIATION CONSIDER ANTERIOR INFARCT : Confirmed by: Henrique Cedeño 22-Aug-2019 20:50:36
== END 2019-08-22 20:02 | disposition home or self-care (01) ==
LOC: ER 14:49
DX: R42 Dizziness and giddiness (principal); R51 Headache; R11.0 Nausea; R61 Generalized hyperhidrosis; Z88.8 Allergy status to other drugs, medicaments and biological substances; I50.9 Heart failure, unspecified; I25.10 Atherosclerotic heart disease of native coronary artery without angina pectoris; I25.2 Old myocardial infarction; I11.0 Hypertensive heart disease with heart failure; E11.9 Type 2 diabetes mellitus without complications
CPT/HCPCS: 93005; 99284; 36415; 85025; 80053; 84484; 71045; 70450; 93010; J3490; S0119

== ENCOUNTER 2019-09-05 14:28 | Emergency (ER) | payer MEDICARE, OTHER ==
[2019-09-05 14:49] LABS: ABSOLUTE EOSINOPHILS # (AUTO) 0.4 10^3/uL (0.0-0.6); ABSOLUTE LYMPHOCYTES (AUTO) 1.5 10^3/uL (0.5-4.7); ABSOLUTE MONOCYTES (AUTO) 0.5 10^3/uL (0.1-1.4); ABSOLUTE NEUT (AUTO) 4.7 10^3/uL (1.7-8.2); BASOPHILS % (AUTO) 0.5 % (0-2); EOSINOPHILS % (AUTO) 5.4 % (0-6); HEMATOCRIT 46.1 % (37.9-51.0); MEAN CORPUSCULAR HEMOGLOBIN 30.4 pg (27.0-33.4); MEAN CORPUSCULAR HGB CONC 34.7 g/dL (32.0-36.0); MEAN CORPUSCULAR VOLUME 88 fl (80-97); PLATELET COUNT 210 10^3/uL (150-450); RED BLOOD COUNT 5.26 10^6/uL (4.35-5.55); RED CELL DISTRIBUTION WIDTH 13.5 % (11.5-14.0); SEGMENTED NEUTROPHILS % (AUTO) 66.1 % (42-78); TOTAL CELLS COUNTED % (AUTO) 100 %; WHITE BLOOD COUNT 7.1 10^3/uL (4.0-10.5)
--- NOTE | 2019-09-05 14:52 | ER Document Report ---
ED Neuro Symptoms/Deficit - General Chief Complaint: Headache Stated Complaint: POSSIBLE TIA/HEADACHE Time Seen by Provider: 09/05/19 14:40 Primary Care Provider: ELPIDIO VEGA PA-C [Primary Care Provider] - Follow up as needed Mode of Arrival: Ambulatory Information source: Patient Notes: This 64-year-old man presents to the emergency department with a history of noted to become on balance and wobbly at about 1350 today. His went out and noted that he had difficulty expressing his words and also weakness on his left side. He became very upset tearful and "scared" EMS was called and the patient was transported to the emergency department. Here he continues to have some difficulty with word finding and drift involving the left arm and weakness in the left leg. Patient is left-handed. He also has had vertigo diagnosed 2 weeks ago as well as pain in the neck secondary to a cervical disc. TRAVEL OUTSIDE OF THE [place] IN LAST 30 DAYS: No - Related Data Allergies/Adverse Reactions: latex [Latex] Allergy (Verified 08/22/19 15:20) oxycodone [From Percocet] Allergy (Verified 08/22/19 15:20) adhesive tape [Adhesive Tape] Adverse Reaction (Verified 08/22/19 15:20) Past Medical History - Social History Smoking Status: Unknown if Ever Smoked Family History: Reviewed & Not Pertinent, CAD, DM, Hypertension - Past Medical History Cardiac Medical History: Reports: Hx Congestive Heart Failure, Hx Coronary Artery Disease, Hx Heart Attack - x14, Hx Hypercholesterolemia, Hx Hypertension Pulmonary Medical History: Reports: Hx Pneumonia Endocrine Medical History: Reports: Hx Diabetes Mellitus Type 2 Renal/ Medical History: Denies: Hx Peritoneal Dialysis Psychiatric Medical History: Denies: Hx Depression Past Surgical History: Reports: Hx Cardiac Catheterization - stents X3, Hx Cardiac Surgery - CABG, Hx Coronary Artery Bypass Graft - 3 vessel CABG, Hx Coronary Stent - 5 angioplasties, last 2 stents placed on05/25/, Hx Vascular Surgery - stent in LLE - Immunizations Hx Diphtheria, Pertussis, Tetanus Vaccination: Yes Review of Systems - Review of Systems Notes: Constitutional: Negative for fever. HENT: Negative for sore throat. Eyes: Negative for visual changes. Cardiovascular: Negative for chest pain. Respiratory: Negative for shortness of breath. Gastrointestinal: Negative for abdominal pain, vomiting or diarrhea. Genitourinary: Negative for dysuria. Musculoskeletal: Negative for back pain. Skin: Negative for rash. Neurological: See HPI 10 point ROS negative except as marked above and in HPI. Physical Exam - Notes Notes: PHYSICAL EXAMINATION: Physical Exam: General: Well-nourished well-developed 64-year-old male in mild distress HEENT: NC/AT, pupils equal round and reactive to light, MM moist,nares clear, oropharynx clear, airway patent Neck: supple, no adenopathy, no masses. Good range of motion Lungs: clear, no wheezing, no rales no rhonchi CVS: Regular rate and rhythm no murmur gallop or rub Abdomen: Soft, active, nontender, no masses, no hepatosplenomegaly Ext: No edema, clubbing or cyanosis. Neuro: Positive slurred speech, left-sided drift, left lower extremity weakness, difficulty with [id number] or qheobx-df-ibef use the left side Skin: Intact no open lesions, no rash PSYCH: Normal mood, normal affect. Course - Re-evaluation Re-evalutation: 09/05/19 15:42 Patient with acute onset of neurologic symptoms slurred speech, left-sided weakness, NIH total score 7, 09/05/19 16:09 Patient received TPA, reassessment post TPA reveals a significant improvement, slurred speech has resolved facial droop has resolved and he no longer has upper extremity drift or weakness on the left side. Patient has been accepted in transfer to [facility], , neurology. - Laboratory Result Diagrams: 09/05/19 14:05 09/05/19 14:05 - Diagnostic Test Radiology reviewed: Image reviewed, Reports reviewed Radiology results interpreted by me: 09/05/19 16:11 CT head: No acute intracranial hemorrhage, microvascular disease, no obvious stroke. 09/05/19 16:12 Chest x-ray: No acute cardiopulmonary disease, poor inspiratory effort. - EKG Interpretation by Me EKG shows normal: Sinus rhythm - First-degree AV block, left axis deviation, LVH with repolarization abnormality. Critical Care Note - Critical Care Note Total time excluding time spent on procedures (mins): 60 - Critical care time spent obtaining history from patient or surrogate, discussions with consultants, development of treatment plan with patient or surrogate, evaluation of patient's response to treatment, examination of patient, ordering and performing treatments and interventions, ordering and review of laboratory studies, re-evaluation of patient's condition, ordering and review of radiographic studies and review of old charts ED [employer]te[employer]/Exc Criteria - Date/Time patient last known well: Date/Time: 09/05/2019 13:50 - Inclusion Criteria: 1: Patient presented to ED within 3 hours of acute ischemic stroke symptom onset? -: Yes 2: Did baseline CT exclude intracranial hemorrhage and/or other risk factors? -: No 3: Is the age of the patient 18 years of age or greater? -: Yes : If any of the above questions are answered "NO" then stop, patient is not a candidate for Alteplase, : If all of the above questions are answered "YES" then continue with Exclusion Criteria. - Exclusion Criteria: 1: Is there evidence of intracranial hemorrhage on baseline CT? -: No 2: Is there suspicion of subarachnoid hemorrhage (even if CT negative)? -: No 3: Is there a history of serious head trauma, recent previous stroke or LA within 3 months? -: No 4: Does the patient have a clinical presentation consistent with LA or post-LA pericarditis? -: No 5: Is there history of intracranial hemorrhage? -: No 6: On repeated measurement is Systolic BP greater than 185mmHg or Diastolic BP greater that 110 mmHg and is aggressive treatment needed to reduce blood pres sure to these limits (e.g. constant infusion of an anti-hypertensive)? -: No 7: Did the patient awake with stroke symptoms? -: No 8: Has the patient had a lumbar puncture or an arterial puncture at a non- compressile site within 7 days? -: No 9: With in the last 14 days did the patient have surgery or major trauma? -: No 10: Is the patient or less than 2 weeks? 11: Was there any active bleeding or acute trauma? -: No 12: Does the patient have intracranial neoplasm, arteriovenous malformation or aneurysm? -: No 13: Does the patient have abnormal glucose (less than 50 or greater than 400mg/dl)? Record glucose in Comment. -: No 14: Patient has rapidly improving symptoms at the time Alteplase is to be Administered. -: No 15: Does the patient have any risks for bleeding, including but not limited to: a.: Current use of Coumadin with PT greater than 15 seconds or INR greater than 1.7. b.: Current use of Pradaxa (Dabigatran). c.: Heparin administereed within the past 48 hours and PTT elevated. d.: Platelet count less than 100,000/mm. e.: Major surgery or serious trauma within 14 days. f.: Gastrointestinal or gynecological urinary bleeding within 14 days. g.: Myocardial Infarction (LA) within 3 months. -: No : If the answer to any of the above questions is "YES" then stop, the patient is not a candidate for Alteplase. : If the answer to all of the above questions is "NO" then the patient may be eligible for the Administration of Alteplase. : If the patient is noted to have seizure activity at onset of Stroke symptoms; Consult Neurologist for further evaluation. - The patient is: -: Included and is eligible to receive Alteplase. *Initiate bed placement at higher level of care* --: Yes - I have contacted [facility]/stroke alert Reviewed risks & benefits of thrombolytic therapy: I have reviewed the risks and benefits of thrombolytic therapy with the patient and/or his/her family. Yes - Patient states that he is willing to take the medication and understands th -: Excluded and not eligible to receive Alteplase for the above exclusions. -: Excluded and not eligible to receive Alteplase for other reasons (specify in comments): - Diagnosis of TIA: -: Patient presented with transient symptoms that are now resolved and no other neurologic findings are currently present. List symptoms in comments. -: Patient is NOT a candidate for tPA. -: ____(put name in comment) has been consulted for admission and continued evaluation of risk factor assessment. ED NIH Stroke Scale - NIH Stroke Scale *: 1. NIH scale should be completed with appropriate accompanying assessment tools. *: 2. The NIH should reflect what the patient is capable of doing and should not be coached by the clinician. 1a. Level of Consciousness: 0=Alert;keenly responsive -: 1=Drowsy -: 2=Obtunded -: 3=Coma/unresponsive or reflex to noxious stimuli. 1a. Responses: 0 1b. Orientation Questions: a. What month is it? -: b. How old are you? -: 0=Answers both questions correctly. -: 1=Answers one question correctly or patient is intubated or has orotracheal trauma. -: 2=Answers neither question correctly. 1b. Responses: 0 1c. Response to commands: a. Open and close eyes? -: b. Trust Mail Clerk and release hand? -: Credit is given despite weakness. Demonstration of task is permitted. Substitute command if hands cannot be used. -: 0=Performs both tasks correctly -: 1=Performs one task correctly -: 2=Performs neither task correctly 1c. Responses: 0 2. Gaze: Establish eye contact and instruct patient to "Follow my finger" -: 0=Normal -: 1=Partial gaze palsy. Gaze is abnormal in one or both eyes, but where forced deviation or total gaze paresis is not present. -: 2=Forced deviation or total gaze paresis. 2. Responses: 0 3. Visual Nash: Sees fingers in all four quadrants. -: 0=No visual loss. -: 1=Partial hemianopsia. -: 2=Complete hemianopsia. -: 3=Bilateral hemianopsia (including Cortical blindness) 3. Responses: 0 4. Facial Movement: Instruct patient to: -: a. Show me your teeth -: b. Raise your eyebrows -: c. Close your eyes -: d. Smile -: 0=Normal symmetrical movement -: 1=Minor paralysis (flattened nasolabial fold, asymmetry on smiling). -: 2=Partial paralysis (total or near total paralysis of lower face). -: 3=Complete paralysis of upper and lower face 4. Responses: 1 5. Motor functions (left arm): Alternate sides and extend each arm with palms down (90 degrees if sitting or 45 degrees for supine). -: 0=No drift;limb holds for full 10 seconds. -: 1=Drift; limb holds but drifts down before full 10 seconds, but does not hit bed. -: 2=Some effort against gravity; limb cannot get to or maintain position. -: 3=No effort against gravity; limb falls. -: 4=No movement. -: UN=Amputation, joint fusion, explain in comments. 5. Responses (left arm): 2 5. Motor Functions (right arm): Alternate sides and extend each arm with palms down (90 degrees if sitting or 45 degrees for supine). -: 0=No drift;limb holds for full 10 seconds. -: 1=Drift; limb holds but drifts down before full 10 seconds, but does not hit bed. -: 2=Some effort against gravity; limb cannot get to or maintain position. -: 3=No effort against gravity; limb falls. -: 4=No movement. -: UN=Amputation, joint fusion, explain in comments. 5. Responses (right arm): 0 6. Motor Functions (left leg): With patient lying supine, alternate sides and extend each leg (30 degrees always while supine). -: 0=No drift, leg holds position for full 5 seconds -: 1=Drift; leg falls before full 5 seconds but does not hit bed. -: 2=Some effort against gravity, leg falls to bed but some effort against gravity. -: 3=No effort against gravity, leg falls to bed immediately. -: 4=No movement. -: UN=Amputation, joint fusion; explain in comments. 6. Responses (left leg): 1 6. Motor Functions (right leg): With patient lying supine, alternate sides and extend each leg (30 degrees always while supine). -: 0=No drift, leg holds position for full 5 seconds -: 1=Drift; leg falls before full 5 seconds but does not hit bed. -: 2=Some effort against gravity, leg falls to bed but some effort against gravity. -: 3=No effort against gravity, leg falls to bed immediately. -: 4=No movement. -: UN=Amputation, joint fusion; explain in comments. 6. Responses (right leg): 0 7. Limb Ataxia: With eyes open instruct patient to: -: a. "Touch your finger to your nose". -: b. "Touch your heel to your mcconnell" -: 0=Absent -: 1=Present in one limb. -: 2=Present in two limbs. -: UN=Amputation or joint fusion; explain in comments. 7. Responses: 1 8. Sensory: Test sensation using pinprick or noxious stimuli. Test as many body parts as possible. -: 0=Normal;no sensory loss -: 1=Mile to moderate sensory loss (patient feels pin prick but is less sharp on affected side). -: 2=Severe or total sensory loss. 8. Responses: 0 9. Best Language: Instruct patient to: -: a. "Describe what you see in this picture." -: b. "Name the items in this picture." -: c. "Read these sentences." -: 0=No aphasia, normal -: 1=Mild to moderate aphasia. -: 2=Severe aphasia -: 3=Mute, global aphasia, no usable speech or auditory comprehension. 9. Responses: 1 10. Articulation, Dysarthia: Instruct patient to: -: "Read these words" or "Repeat these words" -: 0=Normal -: 1=Mild to moderate; patient may slur some words but can be understood without difficulty. -: 2=Severe; patients speech so slurred as to be unintelligible in the absence o f dysphasia. -: UN=Intubated or other physical barrier, explain in comments. 10. Responses: 1 11. Extinction or inattention: 0=No abnormality -: 1= Visual, tactile, auditory, spatial, or personal inattention or extinction to bilateral simulation in one or the sensory modalities. -: 2=Profound sammie-inattention or sammie-inattention to more than one modality; does not recognize own hand. 11. Responses: 0 Total Score: 7 Discharge - Discharge Clinical Impression: Acute CVA (cerebrovascular accident), Received intravenous tissue plasminogen activator (tPA) in emergency department Disposition: [facility] Referrals: ELPIDIO VEGA PA-C [Primary Care Provider] - Follow up as needed
[2019-09-05 14:55] LABS: INTERNATIONAL RATION (INR) 1.04; PROTHROMBIN TIME 13.7 SEC (11.4-15.4)
[2019-09-05 14:56] LABS: PARTIAL THROMBOPLASTIN TIME 27.4 SEC (23.5-35.8)
[2019-09-05 15:00] LABS: ALBUMIN 4.4 g/dL (3.5-5.0); ALKALINE PHOSPHATASE 94 U/L (38-126); ANION GAP 9 (5-19); ASPARTATE AMINO TRANSFERASE 27 U/L (17-59); BILIRUBIN,TOTAL 0.8 mg/dL (0.2-1.3); BLOOD UREA NITROGEN 10 mg/dL (7-20); CALCIUM 9.5 mg/dL (8.4-10.2); CARBON DIOXIDE 26 mmol/L (22-30); CHLORIDE 100 mmol/L (98-107); CREATINE KINASE 44 U/L (55-170); GLUCOSE 152 mg/dL (75-110); POTASSIUM 4.6 mmol/L (3.6-5.0); TOTAL PROTEIN 7.1 g/dL (6.3-8.2)
--- NOTE | 2019-09-05 15:03 | RADIOLOGY REPORT (SQ) ---
EXAM DESCRIPTION: CHEST SINGLE VIEW IMAGES COMPLETED DATE/TIME: 09/05/2019 2:55 pm REASON FOR STUDY: Lt sided weakness COMPARISON: None. EXAM PARAMETERS: NUMBER OF VIEWS: One view. TECHNIQUE: Single frontal radiographic view of the chest acquired. RADIATION DOSE: NA LIMITATIONS: None. FINDINGS: LUNGS AND PLEURA: No opacities, masses or pneumothorax. No pleural effusion. Bilateral lo w lung volumes are present. MEDIASTINUM AND HILAR STRUCTURES: No masses. Contour normal. HEART AND VASCULAR STRUCTURES: Stable CABG changes. BONES: No acute findings. HARDWARE: Stable appearance of the sternotomy wires. OTHER: No other significant finding. IMPRESSION: Bilateral low lung volumes, otherwise no evidence of acute cardiopulmonary process. TECHNICAL DOCUMENTATION: JOB ID: [id number] 2010 [employer]- All Rights Reserved Reading location - IP/workstation name: [email or web address]
--- NOTE | 2019-09-05 15:05 | RADIOLOGY REPORT (SQ) ---
EXAM DESCRIPTION: CT HEAD WITHOUT IMAGES COMPLETED DATE/TIME: 09/05/2019 2:55 pm REASON FOR STUDY: Lt sided weakness COMPARISON: 08/22/2019 TECHNIQUE: Axial images acquired through the brain without intravenous contrast. Images reviewed wi th bone, brain and subdural windows. Images stored on PACS. All CT scanners at this facility use dose modulation, iterative reconstruction, and/or weight based d osing when appropriate to reduce radiation dose to as low as reasonably achievable (ALARA). [facility]: Dose Right [facility]: CareDose [facility]: Dose Right [facility]: Teradose 4D [facility]: Smart NextVR RADIATION DOSE: CT Rad equipment meets quality standard of care and radiation dose reduction techniq ues were employed. CTDIvol: 53.2 mGy. DLP: 991 mGy-cm. mGy. LIMITATIONS: None. FINDINGS: VENTRICLES: Prominent. CEREBRUM: No masses. No hemorrhage. No midline shift. Areas of low density in the white matter mos t likely due to chronic micro-vascular ischemic change. No evidence for acute infarction. CEREBELLUM: No masses. No hemorrhage. No alteration of density. No evidence for acute infarction. EXTRAAXIAL SPACES: Mild age-related involutional change. No fluid collections. No masses. ORBITS AND GLOBE: No intra- or extraconal masses. Normal contour of globe without masses. CALVARIUM: No fracture. PARANASAL SINUSES: No fluid or mucosal thickening. SOFT TISSUES: No mass or hematoma. OTHER: No other significant finding. IMPRESSION: MILD CHRONIC CHANGES OF ATROPHY AND MICROVASCULAR ISCHEMIA. NO ACUTE PROCESS. EVIDENCE OF ACUTE STROKE: NO. TECHNICAL DOCUMENTATION: JOB ID: [id number] Quality ID # [id number]: Final reports with documentation of one or more dose reduction techniques (e.g., Au tomated exposure control, adjustment of the mA and/or kV according to patient size, use of iterative reconstruction technique) 2010 [employer]- All Rights Reserved Reading location - IP/workstation name: [email or web address]
[2019-09-05 15:12] LABS: CREATINE KINASE MB 0.75 ng/mL (<4.55)
[2019-09-05 15:16] LABS: TROPONIN I < 0.012 ng/mL
[2019-09-05] MEDS ORDERED: ALTEPLASE INJ 100 MG VIAL IV ONE (15:34)
[2019-09-05] MEDS ORDERED: ALTEPLASE INJ 100 MG VIAL ONE (15:35)
[2019-09-05 16:28] VITALS: BP 142/86
--- NOTE | 2019-09-05 18:50 | EKG REPORT ---
SEVERITY:- ABNORMAL ECG - SINUS RHYTHM FIRST DEGREE AV BLOCK LEFT AXIS DEVIATION PROBABLE LEFT VENTRICULAR HYPERTROPHY : Confirmed by: Tunde Odonnell MD 05-Sep-2019 18:50:19
== END 2019-09-05 16:25 | disposition short-term general hospital (02) ==
LOC: ER 14:28
DX: I63.9 Cerebral infarction, unspecified (principal); R29.707 NIHSS score 7; R51 Headache; I11.0 Hypertensive heart disease with heart failure; I50.9 Heart failure, unspecified; I25.10 Atherosclerotic heart disease of native coronary artery without angina pectoris; E78.00 Pure hypercholesterolemia, unspecified; E11.9 Type 2 diabetes mellitus without complications; Z91.040 Latex allergy status; Z88.6 Allergy status to analgesic agent; Z95.1 Presence of aortocoronary bypass graft; I25.2 Old myocardial infarction
CPT/HCPCS: 93005; 99291; 96374; 36415; 82553; 82550; 85025; 85610; 85730; 80053; 84484; 71045; 70450; 93010; J2997; 82962